=== PATIENT | male | born 1955 | race Caucasian/White ===

== ENCOUNTER 2020-10-21 20:58 | Inpatient (IN) | payer MEDICAID, SELFPAY ==
[~2020-10-21] VITALS: Ht 170.2 cm; Wt 65.8 kg
[2020-10-21] MEDS: DEXT 5% / NACL 0.45% 1,000 ML IV SCH (06:30)
[2020-10-21 20:58] VITALS: BP 106/78
--- NOTE | 2020-10-21 21:25 | NUR ---
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 UNABLE TO GET INFORMATION ON WHEN TUMOR WAS REMOVED FROM FACILITY.
--- NOTE | 2020-10-21 21:30 | NUR ---
RT AT [facility]. LAB AND XRAY DONE.
--- NOTE | 2020-10-21 21:32 | NUR ---
PATIENT BEING TAKEN TO CT RIGHT NOW
[2020-10-21] MEDS ORDERED: PIPERACILLIN/TAZOBACTAM 3.375 GM in DEXTROSE 5% 50 ML IV ONE (22:55)
[2020-10-21 23:29] LABS: HEMATOCRIT 33.3 % (36-52); HEMOGLOBIN 10.4 g/dL (12.0-18.0); MEAN CORPUSCULAR HEMOGLOBIN 23 pg (27-31); MEAN CORPUSCULAR HGB CONC 31 g/dL (33-37); MEAN CORPUSCULAR VOLUME 74.7 fL (80-94); PLATELET COUNT (AUTO) 267 K/uL (140-450); RED BLOOD CELL COUNT(AUTO) 4.45 MIL/uL (4.20-6.10); RED CELL DISTRIBUTION WIDTH 16.8 % (11.6-13.7); WHITE BLOOD COUNT (AUTO) 19.8 K/uL (4.8-10.8)
[2020-10-21] MEDS ORDERED: PIPERACILLIN/TAZOBACTAM 3.375 GM VIAL IV ONE (23:46)
[2020-10-21 23:48] LABS: PROTHROMBIN TIME 11.9 secs (10.8-13.4)
[2020-10-21 23:55] LABS: EOSINOPHILS % (MANUAL) 1 % (0-4); LYMPHOCYTES % (MANUAL) 4 % (20-46); MONOCYTES % (MANUAL) 1 % (5-12)
[2020-10-22] VITALS (13 sets, daily range): BP systolic 102–124; BP diastolic 67–88
[2020-10-22 00:02] LABS: ALBUMIN 3.1 g/dL (3.4-5.0); CARBON DIOXIDE 36.8 mmol/L (21-32); CREATININE 0.5 mg/dL (0.6-1.3); TOTAL BILIRUBIN 0.6 mg/dL (0.0-1.0)
[2020-10-22 00:07] LABS: POTASSIUM 2.8 mmol/L (3.5-5.1)
--- NOTE | 2020-10-22 00:08 | NUR ---
LAB CALLED IN TO REPORT THAT PT'S POTASSIUM LEVELIS LOW AT 2.8. ERMD NOTIFIED.
[2020-10-22 00:20] LABS: APPEARANCE,URINE HAZY (CLEAR); BILIRUBIN,URINE NEGATIVE (NEGATIVE); BLOOD, URINE 2+ (NEGATIVE); COLOR,URINE YELLOW (YELLOW); LEUKOCYTE ESTERASE ,URINE NEGATIVE (NEGATIVE); NITRITE, URINE NEGATIVE (NEGATIVE); PH,URINE 7.5 (5.0-9.0); UGLUCOSE NEGATIVE (NEGATIVE)
[2020-10-22] MEDS ORDERED: HYDROcodone/APAP 5/325 MG 1 TAB TAB GT PRN (00:30)
[2020-10-22] MEDS ORDERED: ONDANSETRON 4 MG/2 ML VIAL IVP PRN (00:30)
[2020-10-22] MEDS ORDERED: LORazepam 2 MG/ML VIAL IVP PRN (00:30)
[2020-10-22] MEDS ORDERED: ACETAMINOPHEN 325 MG TAB GT PRN (00:30)
[2020-10-22 00:45] LABS: RBC,URINE 11-20 (MOD) /HPF (0-5)
[2020-10-22 00:47] LABS: COARSE GRANULAR CASTS,URINE 0-3 /LPF (None Seen)
--- NOTE | 2020-10-22 01:00 | NUR ---
STARTED K-RIDER 20MEQ/100ML X2 BAGS FOR A TOTAL OF 40MEQ PER DR GLEZ'S ORDER. K+=2.8 PER LAB REPORT.
[2020-10-22] MEDS ORDERED: KCL 20 MEQ/WATER INJ PREMIX 200 ML IV SCH (01:20)
[2020-10-22] MEDS ORDERED: APIX5TAB PO (04:02)
[2020-10-22] MEDS ORDERED: METO25TA PO (04:02)
[2020-10-22] MEDS ORDERED: SUCR1TAB35 PO (04:02)
[2020-10-22] MEDS ORDERED: AMLO10TA GT (04:02)
[2020-10-22] MEDS ORDERED: ASPI-1822 GT (04:02)
[2020-10-22] MEDS ORDERED: FAMO-90 GT (04:02)
[2020-10-22] MEDS ORDERED: ASCO500T95 PO (04:02)
[2020-10-22] MEDS ORDERED: LACO10SO3 PO (04:02)
[2020-10-22] MEDS ORDERED: DOXA2TAB1 GT (04:02)
[2020-10-22] MEDS ORDERED: LEVE100021 PO (04:02)
[2020-10-22] MEDS ORDERED: ATOR10TA51 GT (04:02)
--- NOTE | 2020-10-22 04:34 | NUR ---
RECEIVED PHONE REPORT FROM ER NURSE. WAITING PATIENT TO TRANSFER TO UNIT.
--- NOTE | 2020-10-22 05:30 | NUR ---
RECEIVED PATIENT TO ROOM 122B. DX RESP FAILURE AND PNA. PATIENT IS AWAKE, APHASIC. RESPIRATORY EVEN AND UNLABORED, TRACH TO VENT, NO SIGN OF DISTRESS NOTED. VENT SETTING: FIO2 30, VT 450, PEEP 5, RR 19, O2 SAT 96%. LUNG SOUND DIMINISHED. ABDOMEN SOFT, NON DISTENDED, BOWEL SOUND ACTIVE TO 4 QUADRANTS, G-TUBE IN PLACE, 0ML RESIDUAL. SKIN WARM, DRY, NON DIAPHORETIC. SACRAL WOUND NOTED WITH CLEAN AND DRY DRESSING, PICTURE WAS TAKEN AT ER. IV ON LEFT WRIST 20G, INTACT AND PATENT, IS INFUSING POTASSIUM CHLORIDE 20MEQ @50ML/HR. PATIENT IS INCONTINENT, DIAPER IN PLACE. PATIENT IS STABLE. NO SIGN OF DISTRESS NOTED. PLAN OF CARE DISCUSSED. MRSA COLLECTED. ORIENTED TO ROOM AND UNIT ROUTINE. PRECAUTION IN PLACE. CALL LIGHT WITHIN REACH. HOB ELEVATED. WILL CONTINUE TO MONITOR.
--- NOTE | 2020-10-22 05:41 | NUR ---
Patient will be admitted to care of DR. GLEZ. Admited to TELE UNIT. Will go to room 122B. Belongings list completed. Report to DAGOBERTO CANO.
--- NOTE | 2020-10-22 06:41 | NUR ---
CALL [facility], SPOKE WITH JEROME KWONG TO NOTIFY THAT PATIENT ADMIT TO ROOM 122B. ALL QUESTIONS ANSWER. WILL CONTINUE TO FOLLOW UP.
[2020-10-22] MEDS ORDERED: PIPERACILLIN/TAZOBACTAM 3.375 GM VIAL IV ONE (07:09)
--- NOTE | 2020-10-22 07:11 | NUR ---
PATIENT HAS BEEN SCREENED AND CATEGORIZED HIGH NUTRITION RISK. PATIENT WILL BE SEEN WITHIN 1-2 DAYS OF ADMISSION. 10/22/20-10/23/20 PENNY HILLS MS, RDN
--- NOTE | 2020-10-22 07:20 | NUR ---
ENDORSED PATIENT TO AM NURSE FOR CONTINUITY OF CARE. PATIENT IS STABLE. ALL PRECAUTION IN PLACE.
[2020-10-22] MEDS: PIPERACILLIN/TAZOBACTAM 3.375 GM in DEXTROSE 5% 50 ML IV SCH ×3 (07:21→20:58)
--- NOTE | 2020-10-22 07:30 | NUR ---
RECEIVED REPORT FROM CORPORATE DIRECTOR TALENT ASSESSMENT NURSE. PT IN BED HOB ELEVATED, AOX2, APHASIC, ABLE TO MAKE SOME NEEDS KNOWN THROUGH GESTURES. TRACH TO VENT AC/VC FIO2 30%. NO C/O PAIN AT THIS TIME, NO SOB, SR/ST ON MONITOR. SKIN IS NOT INTACT WITH SACRAL WOUND, WITH LFA 20G RUNNING D5 1/2NS 100CC/HR. NPO. NONAMBULATORY. BOWEL AND BLADDER INCONTINENT. SAFETY AND FALLS PRECAUTIONS IN PLACE. CALL LIGHT WITHIN REACH. WILL CONTINUE TO MONITOR
--- NOTE | 2020-10-22 09:15 | NUR ---
ROUNDS DONE, NO RESPIRATORY DISTRESS, NO C/O PAIN
[2020-10-22] MEDS: DEXT 5% / NACL 0.45% 1,000 ML IV SCH ×2 (09:28→19:20)
[2020-10-22 10:00] LABS: MONOCYTES # (AUTO) 0.7 K/uL (0.8-1.0)
[2020-10-22 10:13] LABS: ANION GAP 6.5 (8-16); CARBON DIOXIDE 33.5 mmol/L (21-32); CREATININE 0.5 mg/dL (0.6-1.3)
[2020-10-22 10:14] LABS: BASOPHILS % (AUTO) 0.2 % (0.0-2.0); EOSINOPHILS # (AUTO) 0.1 K/uL (0-0.4); EOSINOPHILS % (AUTO) 0.4 % (0.0-4.0); HEMOGLOBIN 9.7 g/dL (12.0-18.0); LYMPHOCYTES # (AUTO) 1.2 K/uL (2.0-11.5); LYMPHOCYTES % (AUTO) 7.8 % (20.5-51.1); MEAN CORPUSCULAR HEMOGLOBIN 23 pg (27-31); MEAN CORPUSCULAR HGB CONC 31 g/dL (33-37); MEAN CORPUSCULAR VOLUME 74.6 fL (80-94); MONOCYTES % (AUTO) 4.5 % (1.7-9.3); NEUTROPHILS # (AUTO) 13.5 K/uL (1.8-7.7); NEUTROPHILS % (AUTO) 87.1 % (42.2-75.2); PLATELET COUNT (AUTO) 253 K/uL (140-450); RED BLOOD CELL COUNT(AUTO) 4.16 MIL/uL (4.20-6.10); RED CELL DISTRIBUTION WIDTH 16.7 % (11.6-13.7); WHITE BLOOD COUNT (AUTO) 15.5 K/uL (4.8-10.8)
--- NOTE | 2020-10-22 10:36 | NUR ---
(10/22/20) RD INITIAL ASSESSMENT COMPLETED PLEASE REFER TO NUTRITION ASSESSMENT UNDER CARE ACTIVITY FOR ESTIMATED NUTRITIONAL NEEDS. RD RECOMMENDATIONS: 1. IF/WHEN INITIATING TF APPROPRIATE, RECOMMEND GLUCERNA 1.2 AT 65 ML/HR X 24 HOURS WITH 100 ML FREE WATER FLUSH Q4H (600 ML). THIS PROVIDES 1560 ML TOTAL VOLUME, 1872 KCAL, 94 GM PROTEIN, 1256 ML TOTAL FREE WATER. THIS WILL MEET 80% EST KCAL NEEDS AND >100% EST PROTEIN NEEDS; ADEQUATE TO MEET EST NEEDS. 2. CONSULT RDN PRN. 3. RD WILL F/U 2-3 DAYS; HIGH RISK. PENNY HILLS, MS, RDN
--- NOTE | 2020-10-22 11:11 | NUR ---
PT ASLEEP AT THIS TIME, NO APPARENT DISTRESS
--- NOTE | 2020-10-22 15:00 | NUR ---
ACCOMPANIED PT TO RADIOLOGY FOR CT NECK WITH CONTRAST. RT AND LAUNDRY WASHER PRESENT DURING TRANSFER
--- NOTE | 2020-10-22 15:30 | NUR ---
BACK TO UNIT FROM RADIOLOGY
--- NOTE | 2020-10-22 17:30 | NUR ---
RN AND PMP CERTIFIED PROJECT MANAGER AT BEDSIDE, PERICARE, WOUND CARE AND ORAL CARE DONE
--- NOTE | 2020-10-22 18:00 | NUR ---
STARTED TUBE FEEDING ORDERED
--- NOTE | 2020-10-22 19:40 | NUR ---
RECIEVED BEDSIDE ENDORSEMENT FROM DAY SHIFT RN, A&OX1, APHASIC, FOLLOWS COMMANDS AND NODS HEAD YES AND NO TO SIMPLE COMMANDS, SR ON MONITOR, TRACH TO VENT ACVC FIO2 30% TV 450 RATE 18 PEEP 5, VSS, LUNGS DIMINISHED, GTUVE TO FEEDING INFUSING GLUCERNA @ 10 MLS/HR W/ FWF 100MLS Q4H, PATENT AND FLUSHED W/ 10ML RESIDUAL, ABD SOFT AND NON TENDER TO TOUCH, SKIN NON INTACT/SEE WOUND ASSESSMENT, LFA 20 G PIV INFUSING D5 HALF NS @ 100MLS/HR, NO SIGNS OF ACUTE DISTRESS, SAFETY MEASURS IN PLACE, WILL CONTINUE WITH CURRENT POC
[2020-10-22] MEDS: ALBUTEROL SULFATE/IPRATROPIU 3 ML SOL IH SCH (20:34)
--- NOTE | 2020-10-22 20:36 | NUR ---
PT RECEIVED ON AC/VC 450 +5 f18 W/ ALARMS ON AND AUDIBLE. VENT IS PLUGGED IN TO RED OUTLET W/ AMBU @ BEDSIDE. PT ALSO HAS SECURED PATENT SHILEY 8 DCT TRACH WILL CONTINUE TO MONITOR.
[2020-10-22] MEDS ORDERED: CRUSHER, PILL MC ONE (20:43)
[2020-10-22] MEDS: levETIRAcetam 500 MG TAB PO SCH (20:58)
[2020-10-22] MEDS: SUCRALFATE 1 GM TAB PO SCH (20:58)
[2020-10-22] MEDS: FAMOTIDINE 20 MG TAB GT SCH (20:58)
[2020-10-22] MEDS: VIMPAT 10 MG/ML PO SCH (20:59)
[2020-10-22] MEDS: ASCORBIC ACID 500 MG TAB PO SCH (20:59)
[2020-10-22] MEDS: METOPROLOL 25 MG TAB PO SCH (20:59)
[2020-10-22] MEDS ORDERED: APIXABAN 2.5 MG TAB PO SCH (21:00)
--- NOTE | 2020-10-22 21:10 | NUR ---
ADMINISTERED 2100H MEDICATIONS PER MD ORDERS
[2020-10-23] VITALS (13 sets, daily range): BP systolic 111–235; BP diastolic 69–82
[2020-10-23] MEDS: ALBUTEROL SULFATE/IPRATROPIU 3 ML SOL IH SCH ×4 (00:08→19:59)
--- NOTE | 2020-10-23 00:19 | NUR ---
REPOSITIONED PT AND SHOWING NO SIGNS OF ACUTE DISTRESS
[2020-10-23] MEDS: PIPERACILLIN/TAZOBACTAM 3.375 GM in DEXTROSE 5% 50 ML IV SCH ×3 (04:52→20:46)
--- NOTE | 2020-10-23 04:52 | NUR ---
ADMINISTERED 0500H MEDICATIONS PER MD ORDERS
[2020-10-23] MEDS: DEXT 5% / NACL 0.45% 1,000 ML IV SCH ×2 (04:56→15:34)
--- NOTE | 2020-10-23 05:49 | NUR ---
PT REMAINS ON VENT W/ NO CHANGES TO SETTINGS OF AC/VC 450 +5 f18 30%. VENT REMAINS PLUGGED INTO RED OUTLET W/ ALARMS ON / AUDIBLE AND AMBU REMAINS AT BEDSIDE. TRACH CARE HAS BEEN PERFORMED W/ NO ADVERSE REACTIONS. TRACH REMAINS PATENT AND SECURED. UPON TRACH CARE A PRESSURE SORE/ULCER HAS BEEN NOTICED ON RIGHT LOWER PORTION OF TRACH FLANGE/PLATE. RN IS AWARE OF WOUND IT HAS BEEN CLEANED/ADDRESSED. WILL ENDORSE TO DAYSHIFT FOR CONTINUITY OF CARE.
[2020-10-23 06:39] LABS: BASOPHILS % (AUTO) 0.5 % (0.0-2.0); EOSINOPHILS # (AUTO) 0.1 K/uL (0-0.4); EOSINOPHILS % (AUTO) 1.5 % (0.0-4.0); HEMATOCRIT 30.4 % (36-52); HEMOGLOBIN 9.6 g/dL (12.0-18.0); LYMPHOCYTES # (AUTO) 0.9 K/uL (2.0-11.5); LYMPHOCYTES % (AUTO) 10.3 % (20.5-51.1); MEAN CORPUSCULAR HEMOGLOBIN 24 pg (27-31); MEAN CORPUSCULAR HGB CONC 32 g/dL (33-37); MEAN CORPUSCULAR VOLUME 74.8 fL (80-94); MONOCYTES # (AUTO) 0.7 K/uL (0.8-1.0); NEUTROPHILS # (AUTO) 7.1 K/uL (1.8-7.7); NEUTROPHILS % (AUTO) 79.7 % (42.2-75.2); PLATELET COUNT (AUTO) 251 K/uL (140-450); RED BLOOD CELL COUNT(AUTO) 4.06 MIL/uL (4.20-6.10); RED CELL DISTRIBUTION WIDTH 16.7 % (11.6-13.7); WHITE BLOOD COUNT (AUTO) 8.9 K/uL (4.8-10.8)
[2020-10-23 06:56] LABS: ANION GAP 9.5 (8-16); CARBON DIOXIDE 30.2 mmol/L (21-32); CREATININE 0.5 mg/dL (0.6-1.3)
[2020-10-23 07:02] LABS: MAGNESIUM 2.1 mg/dL (1.8-2.4); PHOSPHORUS 3.3 mg/dL (2.5-4.9)
--- NOTE | 2020-10-23 07:24 | NUR ---
RECEIVED CRITICAL LAB POTASSIUM 2.7 DR GOLDBERG AWARE AND ORDERS RECEIVED.
[2020-10-23 07:26] LABS: POTASSIUM 2.7 mmol/L (3.5-5.1)
--- NOTE | 2020-10-23 07:35 | NUR ---
RECEIVED REPORT FROM NIGHT NURSE PT IS TRACH TO VENT MENTAL STATUS X1 SETTINGS AC/VC FIO2 30 TV 450 RATE 18 PEEP 5 TUBE FEEDING GLUCERNA 1.2 AT 30 ML WATER FLUSH 100 Q4H NO BOWEL MOVEMENT, INCONTINENT, SKIN NON INTACT, IV INTACT ON LEFT FA WITH D50.45 % SODIUM CHLORIDE AT 100 MLS/HR, SAFETY MEASURES IN PLACE AND CALL LIGHT WITHIN REACH. WILL CONTINUE TO MONITOR.
[2020-10-23] MEDS ORDERED: MAG SULF 2000 MG/WATER PREMIX 50 ML IV PRN (08:50)
[2020-10-23] MEDS ORDERED: POTASSIUM CHLORIDE 40 MEQ, LIDOCAINE MPF 1% 25 MG in NACL 0.9% 250 ML IV PRN (08:50)
[2020-10-23] MEDS: levETIRAcetam 500 MG TAB PO SCH ×2 (09:30→20:46)
[2020-10-23] MEDS: ASPIRIN 81 MG TAB.CHEW GT SCH (09:31)
[2020-10-23] MEDS: METOPROLOL 25 MG TAB PO SCH ×2 (09:31→20:45)
[2020-10-23] MEDS: FAMOTIDINE 20 MG TAB GT SCH ×2 (09:31→20:45)
[2020-10-23] MEDS: ATORVASTATIN 20 MG TAB PO SCH (09:31)
[2020-10-23] MEDS: ASCORBIC ACID 500 MG TAB PO SCH ×2 (09:32→20:45)
[2020-10-23] MEDS: amLODIPine 5 MG TAB GT SCH (09:32)
[2020-10-23] MEDS: DOXAZOSIN 2 MG TAB GT SCH (09:32)
[2020-10-23] MEDS: SUCRALFATE 1 GM TAB PO SCH ×2 (09:32→20:45)
[2020-10-23] MEDS: VIMPAT 10 MG/ML PO SCH ×2 (09:42→20:46)
--- NOTE | 2020-10-23 09:51 | NUR ---
MEDICATION DUE GIVEN NO RESIDUAL VOLUME PT TOLERATED WELL INCREASED FEEDING RATE TO 40 ML/HR AND CHECK VITAL SIGNS PRIOR TO MEDICATION BP 113/78 TX 91. NO DISTRESS NOTED.
--- NOTE | 2020-10-23 10:50 | NUR ---
PATIENT POTASSIUM LEVEL 2.7 SODIUM CHLORIDE 0.9% WITH POTASSUIM CHLORIDE 40 MEQ IV GIVEN INFUSING WELL. DR GOLDBERG AWARE.
--- NOTE | 2020-10-23 12:27 | NUR ---
MEDICATION DUE GIVEN CHECK VITAL SIGNS BP 111/78 DE 61. PT IS SLEEPING AND NO DISTRESS NOTED.
--- NOTE | 2020-10-23 14:09 | NUR ---
CLEANS AND CHANGE PT SACRAL WOUND WITH SKIN INTEGRITY CLEANSER AND APPLIED OPTIFOAM AND REPOSITION PATIENT. SUCTIONED TRACH AND PT TOLERATED WELL.
[2020-10-23] MEDS ORDERED: VANCOMYCIN PER PHARMACY MC PRN (14:15)
[2020-10-23] MEDS: VANCOMYCIN 1,000 MG in DEXTROSE 5% 250 ML IV SCH (15:39)
--- NOTE | 2020-10-23 15:44 | NUR ---
VANCOMYCIN 250 ML 1000 MG AT 165 MLS/HR GIVEN INFUSING WELL.RT CLEANED AND CHANGED TRACH TUBING PT TOLERATED WELL.
[2020-10-23] MEDS ORDERED: POTASSIUM CHLORIDE 10 MEQ TABER PO SCH (16:30)
--- NOTE | 2020-10-23 16:43 | NUR ---
K DUR 40 MEQ GIVEN AND DEXTROSE 55 SODIUM CHLORIDE 0.455 DISCONTINUED PER DOCTORS ORDER.
--- NOTE | 2020-10-23 16:44 | NUR ---
TUBE FEEDING INCREASE TO 65 MLS/HR PER ORDER . TUBE FEEDING GOAL IS 65 MLS/HR.
--- NOTE | 2020-10-23 19:24 | NUR ---
ENDORSED TO NIGHT NURSE FOR CONTINUITY OF CARE. PT IS STABLE
--- NOTE | 2020-10-23 19:30 | NUR ---
RECIEVED BEDSIDE ENDORSEMENT FROM DAY SHIFT RN, A&OX1, APHASIC, FOLLOWS COMMANDS AND NODS HEAD YES AND NO TO SIMPLE COMMANDS, SR ON MONITOR, TRACH TO VENT ACVC FIO2 30% TV 450 RATE 18 PEEP 5, VSS, LUNGS DIMINISHED, GTUBE TO FEEDING INFUSING GLUCERNA @ 65 MLS/HR W/ FWF 100MLS Q4H, PATENT AND FLUSHED W/ 10ML RESIDUAL, ABD SOFT AND NON TENDER TO TOUCH, SKIN NON INTACT/SEE WOUND ASSESSMENT, LFA 20 G PIV SALINE LOCKED, NO SIGNS OF ACUTE DISTRESS, SAFETY MEASURS IN PLACE, WILL CONTINUE WITH CURRENT POC
--- NOTE | 2020-10-23 21:41 | NUR ---
ADMINISTERED 2100H MEDICAITONS PER MD ORDERS, STARTED NS TKO TO RUN IV ANTIBIOTICS
--- NOTE | 2020-10-23 23:39 | NUR ---
REPOSITIONED PT, ORAL CARE AND SUCTIONING PROVIDED, SHOWING NO SIGNS OF ACUTE DISTRES
[2020-10-24] VITALS (10 sets, daily range): BP systolic 107–147; BP diastolic 70–98
--- NOTE | 2020-10-24 02:10 | NUR ---
ORAL CARE AND SUCTIONING PROVIDED, SHOWING NO SIGNS OF ACUTE DISTRESS
[2020-10-24] MEDS: VANCOMYCIN 1,000 MG in DEXTROSE 5% 250 ML IV SCH ×2 (03:00→16:15)
--- NOTE | 2020-10-24 03:01 | NUR ---
ADMINISTERED 0400H MEDICATION PER MD ORDERS
[2020-10-24] MEDS: PIPERACILLIN/TAZOBACTAM 3.375 GM in DEXTROSE 5% 50 ML IV SCH ×3 (05:06→21:16)
--- NOTE | 2020-10-24 05:06 | NUR ---
ADMINISTERED 0500H MEDICATION PER MD ORDERS
[2020-10-24 05:19] LABS: BASOPHILS % (AUTO) 0.5 % (0.0-2.0); EOSINOPHILS # (AUTO) 0.1 K/uL (0-0.4); EOSINOPHILS % (AUTO) 1.6 % (0.0-4.0); HEMATOCRIT 30.9 % (36-52); HEMOGLOBIN 9.7 g/dL (12.0-18.0); LYMPHOCYTES # (AUTO) 0.9 K/uL (2.0-11.5); LYMPHOCYTES % (AUTO) 9.7 % (20.5-51.1); MEAN CORPUSCULAR HEMOGLOBIN 24 pg (27-31); MEAN CORPUSCULAR HGB CONC 31 g/dL (33-37); MEAN CORPUSCULAR VOLUME 75.2 fL (80-94); MONOCYTES # (AUTO) 0.6 K/uL (0.8-1.0); MONOCYTES % (AUTO) 7.1 % (1.7-9.3); NEUTROPHILS # (AUTO) 7.4 K/uL (1.8-7.7); NEUTROPHILS % (AUTO) 81.1 % (42.2-75.2); PLATELET COUNT (AUTO) 240 K/uL (140-450); RED BLOOD CELL COUNT(AUTO) 4.11 MIL/uL (4.20-6.10); RED CELL DISTRIBUTION WIDTH 16.4 % (11.6-13.7); WHITE BLOOD COUNT (AUTO) 9.1 K/uL (4.8-10.8)
[2020-10-24 05:40] LABS: PHOSPHORUS 3.3 mg/dL (2.5-4.9)
[2020-10-24] MEDS: ALBUTEROL SULFATE/IPRATROPIU 3 ML SOL IH SCH ×3 (07:16→20:01)
--- NOTE | 2020-10-24 07:30 | NUR ---
RECEIVED REPORT FROM BREAKING MACHINE OPERATOR RN FOR CONTINUITY OF CARE. PATIENT ASLEEP IN BED IN SUPINE POSITION. TRACH TO VENT FIO2 26%, O2 SAT 95%. IV TO LEFT WRIST WITH NEEDLE TOWARD FINGER, IN THE WRONG DIRECTION. WILL REMOVE THE IV. ABDOMEN SOFT NON TENDER, G TUBE IN PLACE. RUNNING GLUCERNA 1.2 @ 65ML/HR, FWF 100ML Q 4H. SACRAL WOUND NOTED. INCONTINENT WITH BLADDER AND BOWEL. SAFETY MEASURES IN PLACE, WILL CONTINUE TO MONITOR.
--- NOTE | 2020-10-24 07:36 | NUR ---
ENDORSED TO DAY SHIFT RN FOR CONTINUITY OF CARE
[2020-10-24] MEDS: levETIRAcetam 500 MG TAB PO SCH ×2 (09:40→21:17)
[2020-10-24] MEDS: ATORVASTATIN 20 MG TAB PO SCH (09:42)
[2020-10-24] MEDS: amLODIPine 5 MG TAB GT SCH (09:42)
[2020-10-24] MEDS: ASCORBIC ACID 500 MG TAB PO SCH ×2 (09:42→21:16)
[2020-10-24] MEDS: FAMOTIDINE 20 MG TAB GT SCH ×2 (09:42→21:16)
[2020-10-24] MEDS: SUCRALFATE 1 GM TAB PO SCH ×2 (09:43→21:16)
[2020-10-24] MEDS: DOXAZOSIN 2 MG TAB GT SCH (09:43)
[2020-10-24] MEDS: METOPROLOL 25 MG TAB PO SCH ×2 (09:43→21:17)
[2020-10-24] MEDS: ASPIRIN 81 MG TAB.CHEW GT SCH (09:43)
[2020-10-24] MEDS: VIMPAT 10 MG/ML PO SCH ×2 (09:57→21:20)
[2020-10-24 11:16] LABS: ANION GAP 17.5 (8-16); CARBON DIOXIDE 25.7 mmol/L (21-32); CREATININE 0.6 mg/dL (0.6-1.3); POTASSIUM 3.2 mmol/L (3.5-5.1)
--- NOTE | 2020-10-24 15:13 | NUR ---
HANG NEW BAG OF FEEDING FORMULA GLUCERNA. PATIENT TOLERATED FEEDING WELL. NO ACUTE DISTRESS NOTED. WILL CONTINUE TO MONITOR.
[2020-10-24] MEDS: POTASSIUM CHLORIDE 20% 40 MEQ/15 ML UDC GT SCH ×2 (16:15→20:00)
[2020-10-24] MEDS: POLYVINYL ALCOHOL 1.4% OP 15 ML SOL BOTH EYES SCH (16:58)
--- NOTE | 2020-10-24 19:19 | NUR ---
ENDORSED PATIENT TO LEGAL ARBITRATOR RN FOR CONTINUITY OF CARE, PATIENT IN STABLE CONDITION.
--- NOTE | 2020-10-24 19:30 | NUR ---
ASSUMED CARE OF PT.INITIAL ASSESSMENT COMPLETED.PT AWAKE; ABLE TO FOLLOW SIMPLE COMMANDS LIKE OPENING/CLOSING OF MOUTH DURING ORAL CARE.TRACH TO VENT A/C VC FIO2 26% TV450 RATE 18 PEEP5.NO BLEEDING FROM TRACH SITE NOTED.W/PERIPHERAL IV TO LT HAND G20 INTACT.NS AT TKO INFUSING.W/G TUBE INTACT.NO RESIDUALS NOTED.G TUBE FEEDING ORDERED.PT INCONTINENT OF URINE.PRESSURE ULCER TO SACRUM ALSO NOTED.GENERALIZED WEAKNESS NOTED.DENIES PAIN WHEN ASKED.
--- NOTE | 2020-10-24 19:53 | NUR ---
PT RECEIVED ON AC/VC 450 +5 f18 26% W/ ALARMS ON AND AUDIBLE. VENT IS PLUGGED IN TO RED OUTLET W/ AMBU @ BEDSIDE. PT ALSO HAS SECURED SHILEY 8 TRACH. WILL CONTINUE TO MONITOR
--- NOTE | 2020-10-24 20:08 | NUR ---
PHONE CALL FROM LAB RE; MRSA NARES POSITIVE; INFORMED BABAR BROWN, THAT AND AUTOCAD DRAFTSMAN ALREADY AWARE THE PTS RESULT.ALREADY ORDERED BACTROBAN AND CHLORHEXIDINE CLOTH AT 1939. ADORE CHARGE NURSE AWARE
--- NOTE | 2020-10-24 20:30 | NUR ---
ORAL CARE USING VAP KIT RENDERED.PT ON PEPCID FOR GI PROPHYLAXIS.NO DVT PROPHYLAXIS AT THIS TIME.MD WILL EVALUATE PT IN AM PER REPORT.REPOSITIONED FOR COMFORT.
--- NOTE | 2020-10-24 22:41 | NUR ---
PT APPEARS ASLEEP; NO S/SX OF RESP DISTRESS NOTED.STILL NO BLEEDING FROM TRACH SITE NOTED.SECRETIONS SUCTIONED.MODERATE AMT OF CREAMY SECRETIONS SUCTIONED.WILL CONTINUE TO CLOSELY MONITOR PT.
--- NOTE | 2020-10-24 23:23 | NUR ---
ORAL CARE DONE USING VAP KIT.MODERATE AMT OF CREAMY SECRETIONS SUCTIONED. PT INCONTINENT OF URINE.CLEANED AND CHANGED.REPOSITIONED.DENIES PAIN
[2020-10-25] VITALS (7 sets, daily range): BP systolic 93–123; BP diastolic 64–87
[2020-10-25] MEDS: ALBUTEROL SULFATE/IPRATROPIU 3 ML SOL IH SCH ×4 (02:08→19:00)
--- NOTE | 2020-10-25 03:03 | NUR ---
LAB AT BEDSIDE TO DRAW VANCOMYCIN TROUGH.PT ASLEEP,EASILY AROUSABLE.DENIES PAIN
[2020-10-25 03:22] LABS: ANION GAP 14.5 (8-16); BASOPHILS # (AUTO) 0.1 K/uL (0.00-0.22); BASOPHILS % (AUTO) 0.6 % (0.0-2.0); CARBON DIOXIDE 27.5 mmol/L (21-32); CREATININE 0.6 mg/dL (0.6-1.3); EOSINOPHILS # (AUTO) 0.2 K/uL (0-0.4); EOSINOPHILS % (AUTO) 1.9 % (0.0-4.0); HEMATOCRIT 30.2 % (36-52); HEMOGLOBIN 9.5 g/dL (12.0-18.0); LYMPHOCYTES % (AUTO) 11.2 % (20.5-51.1); MEAN CORPUSCULAR HEMOGLOBIN 23 pg (27-31); MEAN CORPUSCULAR HGB CONC 32 g/dL (33-37); MEAN CORPUSCULAR VOLUME 74.1 fL (80-94); MONOCYTES # (AUTO) 0.5 K/uL (0.8-1.0); MONOCYTES % (AUTO) 6.1 % (1.7-9.3); NEUTROPHILS # (AUTO) 6.8 K/uL (1.8-7.7); NEUTROPHILS % (AUTO) 80.2 % (42.2-75.2); PLATELET COUNT (AUTO) 254 K/uL (140-450); RED BLOOD CELL COUNT(AUTO) 4.08 MIL/uL (4.20-6.10); RED CELL DISTRIBUTION WIDTH 16.6 % (11.6-13.7); WHITE BLOOD COUNT (AUTO) 8.5 K/uL (4.8-10.8)
[2020-10-25 04:12] LABS: PHOSPHORUS 3.5 mg/dL (2.5-4.9)
[2020-10-25] MEDS: VANCOMYCIN 1,000 MG in DEXTROSE 5% 250 ML IV SCH ×2 (04:21→16:20)
--- NOTE | 2020-10-25 04:45 | NUR ---
BM NOTED.LARGE AMT OF SOFT BROWNISH STOOL.PT CLEANED.REPOSITIONED.DENIES PAIN
[2020-10-25] MEDS: PIPERACILLIN/TAZOBACTAM 3.375 GM in DEXTROSE 5% 50 ML IV SCH ×3 (05:03→20:53)
--- NOTE | 2020-10-25 05:03 | NUR ---
PT REMAINS ON VENT W/ NO CHANGES TO SETTINGS OF AC/VC 450 +5 f18 26%. VENT REMAINS PLUGGED INTO RED OUTLET W/ ALARMS ON / AUDIBLE AND AMBU REMAINS AT BEDSIDE. JOSE EDUARDO Shields TRACH IS SECURED AND PATENT. TRACH CARE HAS BEEN PERFORMED W/ NO ADVERSE REACTIONS. WILL CONTINUE TO MONITOR AND ENDORSE TO DAY SHIFT
--- NOTE | 2020-10-25 06:23 | NUR ---
PT ASLEEP; EASILY AROUSABLE.CONDITION REMAINS UNCHANGED AT THIS TIME.PINK TINGED SECRETIONS SUCTIONED,SMALL AMT.DENIES PAIN
--- NOTE | 2020-10-25 07:05 | NUR ---
RECEIVED REPORT FROM LUMBER LOADER RN FOR CONTINUITY OF CARE. PATIENT IS NONVERBAL. SR ON MONITOR. TRACH TO VENT, AC/VC FIO2 26%, TV 450, RATE 18, PEEP 5. NPO EXCEPT MEDS. IV VLEAN, DRY, AND INTACT, ON LFA 20 G INFUSING NS AT 5 ML/HR TKO. G-TUBE TO FEEDING, RUNNING GLUCERA 1.2 AT 60 ML/HR WITH FREE WATER FLUSH OF 100 ML EVERY 4 HOURS. SACRAL WOUND, OPTIFOAM PLACED. CARDIAC MONTIOR, PULSE OXIMETER, AND SAFETY MEASURES IN PLACE. BED LOCKED, BED IN LOW POSITION, HEAD OF BED AT 30 DEGREES. WILL CONTINUE TO MONITOR.
[2020-10-25] MEDS: VIMPAT 10 MG/ML PO SCH ×3 (10:12→20:59)
[2020-10-25] MEDS: METOPROLOL 25 MG TAB PO SCH ×2 (10:12→20:54)
[2020-10-25] MEDS: CHLORHEXADINE GLUC 2% CLOTH TP SCH (10:12)
[2020-10-25] MEDS: amLODIPine 5 MG TAB GT SCH (10:13)
[2020-10-25] MEDS: levETIRAcetam 500 MG TAB PO SCH ×2 (10:13→20:53)
[2020-10-25] MEDS: MUPIROCIN CA NASAL 2% 1GM TUBE NS SCH (10:13)
[2020-10-25] MEDS: SUCRALFATE 1 GM TAB PO SCH ×2 (10:14→20:53)
[2020-10-25] MEDS: DOXAZOSIN 2 MG TAB GT SCH (10:14)
[2020-10-25] MEDS: FAMOTIDINE 20 MG TAB GT SCH ×2 (10:14→20:52)
[2020-10-25] MEDS: ASCORBIC ACID 500 MG TAB PO SCH ×2 (10:15→20:54)
[2020-10-25] MEDS: ATORVASTATIN 20 MG TAB PO SCH (10:15)
--- NOTE | 2020-10-25 10:15 | NUR ---
CHECKED RESIDUAL, 0 ML. ADMINISTERED SCHEDULED AM MEDICATION. FLUSHED AFTER. CHANGED FEEDING. ORAL CARE, HYGIENE CARE, AND G BATH PROVIDED. PATIENT REPOSITIONED. NO SIGNS OF PAIN OR DISTRESS. WILL CONTINUE TO MONITOR.
[2020-10-25] MEDS: ASPIRIN 81 MG TAB.CHEW GT SCH (10:16)
[2020-10-25] MEDS: POLYVINYL ALCOHOL 1.4% OP 15 ML SOL BOTH EYES SCH ×3 (10:17→16:20)
--- NOTE | 2020-10-25 12:00 | NUR ---
REPORT RECEIVED FROM Nancy CANO
--- NOTE | 2020-10-25 12:25 | NUR ---
ADMINISTERED ZOSYN IVPB AND ARTIFICIAL TEARS. PATIENT SHOWS NO SIGN OF PAIN. ENDORSED TO LLOYD RN, FOR CONTINUITY OF CARE. ALL QUESTIONS ANSWERED.
--- NOTE | 2020-10-25 13:54 | NUR ---
10/25/20 FOLLOW UP COMPLETED PLEASE REFER TO NUTRITION ASSESSMENT UNDER CARE ACTIVITY FOR ESTIMATED NUTRITIONAL NEEDS. 1. CONT. GLUCERNA 1.2 AT 65 ML/HR X 24 HOURS WITH 100 ML FREE WATER FLUSH Q4H (600 ML). -THIS PROVIDES 1560 ML TOTAL VOLUME, 1872 KCAL, 94 GM PROTEIN, 1256 ML TOTAL FREE WATER. THIS WILL MEET 80% EST KCAL NEEDS AND >100% EST PROTEIN NEEDS; ADEQUATE TO MEET EST NEEDS. 2. RECOMMEND DU BID TO PROMOTE WOUND HEALING 3. RD WILL F/U 2-3 DAYS; HIGH RISK. ALYCE PLUMMER RD
--- NOTE | 2020-10-25 14:02 | NUR ---
WOUND CARE DONE
--- NOTE | 2020-10-25 15:30 | NUR ---
PT TRANSFERED TO WOUND MATTRESS BED
--- NOTE | 2020-10-25 16:10 | NUR ---
DR BREWSTER AT BEDSIDE
--- NOTE | 2020-10-25 16:23 | NUR ---
SCHEDULED VANCO STARTED IV PB, ORAL CARE DONE, PT FOLLOWS COMMANDS, PT RESTING QUIETLY IN NO ACUTE DISTRESS
--- NOTE | 2020-10-25 18:36 | NUR ---
DR Eddie GLEZ AT BEDSIDE
--- NOTE | 2020-10-25 18:50 | NUR ---
DR KAUR AT BEDSIDE
--- NOTE | 2020-10-25 19:20 | NUR ---
PT RECEIVED W/ JOSE EDUARDO 8 TRACH ON AC/VC 450 +5 f18 24% W/ ALARMS ON AND AUDIBLE. VENT IS PLUGGED IN TO RED OUTLET W/ AMBU @ BEDSIDE. A/W IS PATENT AND SECURED WILL CONTINUE TO MONITOR
--- NOTE | 2020-10-25 19:20 | NUR ---
REPORT GIVEN TO PSYCHOLOGICAL OPERATIONS OFFICER NURSE
--- NOTE | 2020-10-25 19:21 | NUR ---
RECEIVED REPORT FROM DAY SHIFT NURSE. PT IN BED AWAKE. PT NON VERBAL WITH SPONTANEOUS EYE OPENING AND IS ABLE TO FOLLOW COMMANDS. PT ON TRACH TO VENT A/CVC FIO2 24, TV 450, PEEP 5, FLOW 40. PT NOT IN DISTRESS. PT SHOWS SINUS RHYTHM ON MONITOR. PT WITH GTUBE IN PLACE, ON CONTINUOUS FEEDING. SKIN IS WARM AND DRY. PT WITH SACRAL PRESSURE ULCER, DRESSING IN PLACE. IV ACCESS G20 ON LEFT FOREARM PATENT AND INTACT, TKO. PT DENIES ANY PAIN OR DISCOMFORT AT THIS TIME. PT KEPT COMFORTABLE. SAFETY MEASURES IN PLACE, CALL LIGHT WITHIN REACH, WILL CONTINUE TO MONITOR.
--- NOTE | 2020-10-25 20:55 | NUR ---
VS STABLE. NO RESIDUAL NOTED ON GTUBE. SCHEDULED MEDS GIVEN ORDERED. ANTIHYPERTENSIVE HELD, BP 109/64. PT NOT IN DISTRESS, FLACC 0. WILL CONTINUE TO MONITOR.
[2020-10-25] MEDS: APIXABAN 2.5 MG TAB PO SCH (20:58)
--- NOTE | 2020-10-25 22:14 | NUR ---
PERINEAL CARE DONE WITH STNA. PT HAD BOWEL MOVEMENT. PT TOLERATED WELL. PT NOT IN DISTRESS.
[2020-10-26] VITALS: BP 117/78
--- NOTE | 2020-10-26 00:19 | NUR ---
VITAL SIGNS STABLE. TRACH CONNECTED TO VENT, O2 SAT 98%. NO S/SX OF DISTRESS NOTED. PT KEPT COMFORTABLE. FLACC 0. WILL CONTINUE TO MONITOR.
[2020-10-26] MEDS: ALBUTEROL SULFATE/IPRATROPIU 3 ML SOL IH SCH ×3 (01:02→13:20)
--- NOTE | 2020-10-26 02:11 | NUR ---
PT ASSISTED IN REPOSITIONING. PT SUCTIONED WELL. SCANT SECRETION OBTAINED. PT NOT IN PAIN OR DISTRESS. WILL CONTINUE TO MONITOR.
[2020-10-26] MEDS: VANCOMYCIN 1,000 MG in DEXTROSE 5% 250 ML IV SCH ×2 (03:38→16:31)
[2020-10-26 04:00] VITALS: BP 124/85
--- NOTE | 2020-10-26 04:19 | NUR ---
VS STABLE. PERINEAL CARE, WOUND CARE, GTUBE CARE DONE. PT TOLERATED WELL. PT TURNED AND REPOSITIONED WELL. WILL CONTINUE TO MONITOR.
--- NOTE | 2020-10-26 05:30 | NUR ---
NEW FEEDING BAG HUNG FOR CONTINUOUS FEEDING.
[2020-10-26] MEDS: PIPERACILLIN/TAZOBACTAM 3.375 GM in DEXTROSE 5% 50 ML IV SCH ×2 (05:45→13:00)
[2020-10-26 05:48] LABS: ALBUMIN 2.6 g/dL (3.4-5.0); ANION GAP 11.6 (8-16); CARBON DIOXIDE 28.7 mmol/L (21-32); CREATININE 0.6 mg/dL (0.6-1.3); POTASSIUM 3.3 mmol/L (3.5-5.1); TOTAL BILIRUBIN 0.3 mg/dL (0.0-1.0)
[2020-10-26 05:57] LABS: MAGNESIUM 2.1 mg/dL (1.8-2.4); PHOSPHORUS 3.5 mg/dL (2.5-4.9)
[2020-10-26 06:10] LABS: BASOPHILS % (AUTO) 0.4 % (0.0-2.0); EOSINOPHILS # (AUTO) 0.1 K/uL (0-0.4); HEMATOCRIT 29.6 % (36-52); HEMOGLOBIN 9.4 g/dL (12.0-18.0); LYMPHOCYTES % (AUTO) 14.7 % (20.5-51.1); MEAN CORPUSCULAR HEMOGLOBIN 24 pg (27-31); MEAN CORPUSCULAR HGB CONC 32 g/dL (33-37); MEAN CORPUSCULAR VOLUME 74.5 fL (80-94); MONOCYTES # (AUTO) 0.4 K/uL (0.8-1.0); MONOCYTES % (AUTO) 6.2 % (1.7-9.3); NEUTROPHILS # (AUTO) 5.1 K/uL (1.8-7.7); NEUTROPHILS % (AUTO) 76.7 % (42.2-75.2); PLATELET COUNT (AUTO) 272 K/uL (140-450); RED BLOOD CELL COUNT(AUTO) 3.97 MIL/uL (4.20-6.10); RED CELL DISTRIBUTION WIDTH 16.7 % (11.6-13.7); WHITE BLOOD COUNT (AUTO) 6.6 K/uL (4.8-10.8)
--- NOTE | 2020-10-26 07:30 | NUR ---
ENDORSED TO DAY SHIFT NURSE FOR CONTINUITY OF CARE
--- NOTE | 2020-10-26 07:30 | NUR ---
RECEIVED BEDSIDE REPORT FROM TAX AGENT NURSE. PATIENT SUPINE IN BED, HOB 30 DEGREES, ANSWERS TO NAME, CONTACT PRECAUTIONS FOR MRSA. BREATHING EVEN AND UNLABORED, NO SINGS OF ACUTE DISTRESS NOTED. TRACH TO VENT: ACVC 24% FIO2, 450 VT, RR 18, PEEP 5. G TUBE FEEDING RUNNING: GLUCERNA 1.2 @ 65 ML/HR. L HAND 20G INFUSING NS @ 5ML/HR. SEIZURE PRECAUTIONS IN PLACE. ON LINE CSR IN PLACE, SAFETY MEASURES IN PLACE.
[2020-10-26 08:00] VITALS: BP 112/74
[2020-10-26] MEDS: VIMPAT 10 MG/ML PO SCH (09:00)
[2020-10-26] MEDS: POLYVINYL ALCOHOL 1.4% OP 15 ML SOL BOTH EYES SCH ×3 (09:30→17:39)
[2020-10-26] MEDS: ASPIRIN 81 MG TAB.CHEW GT SCH (09:31)
[2020-10-26] MEDS: DOXAZOSIN 2 MG TAB GT SCH (09:33)
[2020-10-26] MEDS: amLODIPine 5 MG TAB GT SCH (09:34)
[2020-10-26] MEDS: FAMOTIDINE 20 MG TAB GT SCH (09:34)
[2020-10-26] MEDS: MUPIROCIN CA NASAL 2% 1GM TUBE NS SCH (09:36)
[2020-10-26] MEDS: SUCRALFATE 1 GM TAB PO SCH (09:36)
[2020-10-26] MEDS: APIXABAN 2.5 MG TAB PO SCH (09:39)
[2020-10-26] MEDS: levETIRAcetam 500 MG TAB PO SCH (09:43)
[2020-10-26] MEDS: ATORVASTATIN 20 MG TAB PO SCH (09:43)
--- NOTE | 2020-10-26 09:45 | NUR ---
ADMINISTERED SCHEDULED MEDS PER MD ORDER. MED EDUCATION PROVIDED, REINFORCEMENT NEEDED. G TUBE RESIDUAL 40 ML, FLUSHED BEFORE AND AFTER MEDS. WOUND CARE NURSE AT BEDSIDE: ASSISTED WITH WOUND CARE, WOUND PHOTOS TAKEN AND ADDED TO PATIENT CHART. PATIENT SOILED WITH URINE, CHANGED ALL DIRTY LINEN. REPOSITIONED AND OFFLOADED PRESSURE WITH PILLOWS. SEIZURE PRECAUTIONS IN PLACE, SAFETY MEASURES IN PLACE.
[2020-10-26] MEDS: POTASSIUM CHLORIDE 20% 40 MEQ/15 ML UDC GT SCH ×2 (09:46→14:05)
[2020-10-26] MEDS: METOPROLOL 25 MG TAB PO SCH (09:46)
[2020-10-26] MEDS: ASCORBIC ACID 500 MG TAB PO SCH (09:46)
[2020-10-26] MEDS: CHLORHEXADINE GLUC 2% CLOTH TP SCH (09:47)
[2020-10-26] MEDS ORDERED: ZOS3.375PM IV (10:57)
[2020-10-26] MEDS ORDERED: VANC1PLA7 IV (10:57)
--- NOTE | 2020-10-26 12:15 | NUR ---
PATIENT SLEEPING AT THIS TIME, SUPINE, HOB 30 DEGREES. BREATHING EVEN AND UNLABORED, NO SIGNS OF ACUTE DISTRESS NOTED.
--- NOTE | 2020-10-26 12:59 | NUR ---
WOUND CARE EVALUATION NOTE: SKIN ASSESSMENT DONE WITH THIS 65 YO MALE ADMITTED WITH TRACH BLEEDING AND PRESSURE INJURY. PAST MEDICAL HX CHRONIC HYPOXEMIC RESPIRATORY FAILURE, CAD STATUS POST CABG X2 IN 05/2020, STATUS POST AORTIC VALVE REPAIR 05/27/2020 WITH UNDERLYING CHRONIC HYPOXEMIC RESPIRATORY FAILURE, STATUS POST TRACHEOSTOMY SINCE 06/10/2020 AND HISTORY OF FACIAL TRAUMA, STATUS POST NECK DISSECTION. PT ABLE TO MAKE EYES CONTACT, LIPS READING FOR YES, NO QUESTIONS. PT. SKIN DRY AND WARM, BLE NO EDEMA, PEDAL PULSES PRESENT AND NORMAL. RIGHT EARS SMALL AMOUNT PURULENT DRAINAGE, MILD ODOR, NO PAIN. PER PRIMARY RN WILL NOTIFY PHYSICIAN. INTEGUMENTARY: -RIGHT FACE S/P NECK DISSECTION SKIN INTACT SOFT TO TOUCH -RIGHT EAR SMALL AMOUNT PURULENT DRAINAGE, MILD ODOR, NO PAIN. -SENIOR TALENT ACQUISITION SPECIALIST RELATED PRESSURE INJURY STAGE 2, 1X1.5CM SUPERFICIAL WOUND BED MOIST NO ODOR, BRIAN WOUND SKIN INTACT. -SACRALCOCCYX PRESSURE INJURY STAGE 4, 7X5X0.2CM 100% RED GRANULATING TISSUE WOUND EDGE FLAT, NO ODOR, BRIAN-WOUND SKIN HEALED SCAR MOIST. -BILATERAL HEELS BLANCHABLE INTACT SKIN RECOMMENDATIONS: -SACRALCOCCYX AND NECK WOUNDS CLEANSE WITH WOUND CARE SOLUTION, PAT DRY, APPLY ADAPTIC DRESSING TO WOUND BED AND COVER WITH DRY DRESSING AND SECURE WITH TAPE. -APPLY HEEL PROTECTORS WITH OFFLOADING -TURN AND REPOSITION PATIENT Q 2H -ASSESS AND MONITOR SKIN CONDITION DURING POSITION CHANGE -OFFLOAD BILATERAL HEELS BY PLACING PILLOWS UNDER CALVES AT ALL TIMES, UNLESS OTHERWISE CONTRAINDICATED -PRESSURE REDISTRIBUTION SURFACE AND PLACING PILLOWS/ OFFLOADING SACRALCOCCYX AND LEFT HIP -KEEP SKIN CLEAN AND DRY AT ALL TIMES. PLEASE CONTACT WOUND CARE NURSE FOR ANY CHANGE OF SKIN CONDITION
--- NOTE | 2020-10-26 14:06 | NUR ---
ADMINISTERED SCHEDULED MEDS PER MD ORDER. MED EDUCATION PROVIDED, REINFORCEMENT NEEDED. G TUBE FLUSHED BEFORE AND AFTER MEDS. PATIENT REPOSITIONED AND OFFLOADED PRESSURE WITH PILLOWS. BREATHING EVEN AND UNLABORED, NO SIGNS OF ACUTE DISTRESS NOTED.
--- NOTE | 2020-10-26 14:48 | NUR ---
DC PLANNING: ORDERS RECEIVED TO DISCHARGE PATIENT TO [facility]AC[facility], PATIENT WILL RETURN TO [facility]. PATIENT IS T/V/P, CCT TRANSPORT ARRANGED WITH [facility] ([phone]). SPOKE WITH CHUY IN ADMITTING AT [facility], ASSIGNED ROOM 11B, PATIENT WILL BE IN ISOLATION FOR MRSA AND SERRATIA. SPOKE WITH DR. GLEZ TO CLARIFY ORDERS FOR IV ANTIBIOTICS, STATES PATIENT WILL CONTINUE ON ZOSYN IV AND VANCO IV FOR SEVEN MORE DAYS. DR. GLEZ WILL FOLLOW PATIENT AT FACILITY, [facility] TRANSPORT PLACED ON WILL CALL. PHONE NUMBER AT [facility] TO CALL REPORT IS [phone]. ALSO SPOKE WITH PATIENTS ITZEL HU BY PHONE HIS NEXT OF KIN, NOTIFIED HER OF PATIENT DC TODAY. Addendum: 10/26/20 at 1532 by Kristen Barron DC PLANNING: SPOKE WITH JERICA, CONFIRMS THAT [facility] WAS CALLED FOR A 5:00 PM INSIDE SALES TERRITORY MANAGER. ROOM NUMBER AND REPORT NUMBER ENDORSED.
--- NOTE | 2020-10-26 16:01 | NUR ---
ADMINISTERED PRN NORCO FOR BACK PAIN, SEE PAIN ASSESSMENT NOTES.
[2020-10-26 16:42] VITALS: BP 106/71
--- NOTE | 2020-10-26 17:20 | NUR ---
[facility] AT BEDSIDE FOR PAT[facility]SF[facility]. DISCHARGE TEACHING PROVIDED, REINFORCEMENT NEEDED. BREATHING EVEN AND UNLABORED, NO SIGNS OF ACUTE DISTRESS NOTED. L HAND IV 20G IN PLACE FOR ABX ADMINISTRATION. VITAL SIGNS: 112/74 BP, 97% SPO2, 70 MA, 18 RR. PATIENT STABLE AT THIS TIME.
--- NOTE | 2020-10-26 18:00 | NUR ---
REPORT GIV[facility] RN AT [facility].
[2020-10-26] MEDS ORDERED: VIMPAT 10 MG/ML PO SCH (21:00)
== END 2020-10-26 18:20 | DRG 720 ==
LOC: MED 20:58 → MTU 23:19
PROVIDERS: ADMIT Preventive Medicine Preventive Medicine/Occupational Environmental Medicine; ATTEND Preventive Medicine Preventive Medicine/Occupational Environmental Medicine
PROC: 5A1955Z Respiratory Ventilation, Greater than 96 Consecutive Hours (ICD-10-PCS; principal; 2020-10-22)
DX: A41.1 Sepsis due to other specified staphylococcus (principal); J96.21 Acute and chronic respiratory failure with hypoxia; J15.6 Pneumonia due to other Gram-negative bacteria; L89.153 Pressure ulcer of sacral region, stage 3; Z93.0 Tracheostomy status; R13.10 Dysphagia, unspecified; E44.1 Mild protein-calorie malnutrition; G81.91 Hemiplegia, unspecified affecting right dominant side; E88.09 Other disorders of plasma-protein metabolism, not elsewhere classified; N39.0 Urinary tract infection, site not specified; G40.909 Epilepsy, unspecified, not intractable, without status epilepticus; E87.6 Hypokalemia; B95.7 Other staphylococcus as the cause of diseases classified elsewhere; D64.9 Anemia, unspecified; E78.5 Hyperlipidemia, unspecified; I10 Essential (primary) hypertension; I25.10 Atherosclerotic heart disease of native coronary artery without angina pectoris; K21.9 Gastro-esophageal reflux disease without esophagitis; Z79.01 Long term (current) use of anticoagulants; Z85.89 Personal history of malignant neoplasm of other organs and systems; Z86.718 Personal history of other venous thrombosis and embolism; Z93.1 Gastrostomy status; Z95.1 Presence of aortocoronary bypass graft; Z20.822 Contact with and (suspected) exposure to COVID-19; Z68.22 Body mass index [BMI] 22.0-22.9, adult
CPT/HCPCS: 36415; 70491; 71045; 71250; 80048; 80053; 80202; 81001; 83605; 83735; 84100; 84484; 85025; 85610; 85651; 85730; 86140; 86886; 86900; 86901; 87040; 87070; 87081; 87086; 87186; 87205; 93005; 93970; 94003; 94640; 96365; 96375; 99285; J2001; J2543; J3370; J3480; J7030; J7060; Q9967

== ENCOUNTER 2020-12-30 19:19 | Inpatient (IN) | payer MEDICAID, SELFPAY ==
[~2020-12-30] VITALS: Ht 170.2 cm; Wt 68.9 kg
[2020-12-30 19:19] VITALS: BP 100/76
[~2020-12-30 19:19] MED LIST: AMLO10TA GT; APIX5TAB PO; ASCO500T95 PO; ASPI-1822 GT; ATOR10TA51 GT; DOXA2TAB1 GT; FAMO-90 GT; LACO10SO3 PO; LEVE100021 PO; METO25TA PO; SUCR1TAB35 PO; VANC1PLA7 IV; ZOS3.375PM IV
--- NOTE | 2020-12-30 19:19 | NUR ---
PATIENT ARRIVED VIA EMS AND TAKEN TO BED 6 VIA GURNEY. AT AT BEDSIDE FOR ASSISTENCE IN VENT SETUP. ERMD COLLEEN AT BEDSIDE.
--- NOTE | 2020-12-30 19:20 | NUR ---
PATIENT 65 MALE BIBA FROM [facility] FOR C/O IRREGULAR HR. PER EMS REPORT FROM FACILITY PATIENT HAD RAPID RR AND IRRAGULAR HR. PATIENT PRESENT WITH RESPIRATIONS EVEN AND UNLABORED. PER EMS PATIENT WAS SUCTIONED EN ROUTE AND RR RETURNED TO NORMAL. PATIENT VENT TO TRACH. ERMD AT BEDSIDE FOR MEDICAL EALUATION. PATIENT RADIAL PULSES STRONG AND EQUAL BILAT. PATIENT PLACED ON CARDAC MONITOR. PATIENT NOTED WITH AFIB ON MONITOR. ALL OTHER VSS. BED IS LOCKED AND IN LOWEST POSITION. MEDHX: CHRONIC RESPIRATORY FAILURE, EPILEPSY, HTN, CHRONIC AFIB, HX OF CABG, CAD, VENT-TRACH, G-TUBE NKA
[2020-12-30] MEDS ORDERED: PIPERACILLIN/TAZOBACTAM 3.375 GM in DEXT 5% MINI-BAG PLUS 50 ML IV ONE (19:35)
[2020-12-30] MEDS ORDERED: NACL 0.9% 500 ML IV SCH (19:35)
[2020-12-30] MEDS ORDERED: VANCOMYCIN 1,000 MG in DEXTROSE 5% 250 ML IV ONE (19:35)
[2020-12-30 20:01] LABS: BASOPHILS % (AUTO) 0.1 % (0.0-2.0); EOSINOPHILS # (AUTO) 0.1 K/uL (0-0.4); EOSINOPHILS % (AUTO) 0.4 % (0.0-4.0); HEMATOCRIT 29.3 % (36-52); HEMOGLOBIN 8.9 g/dL (12.0-18.0); LYMPHOCYTES # (AUTO) 0.3 K/uL (2.0-11.5); LYMPHOCYTES % (AUTO) 2.2 % (20.5-51.1); MEAN CORPUSCULAR HEMOGLOBIN 21 pg (27-31); MEAN CORPUSCULAR HGB CONC 30 g/dL (33-37); MEAN CORPUSCULAR VOLUME 69.8 fL (80-94); MONOCYTES # (AUTO) 0.7 K/uL (0.8-1.0); MONOCYTES % (AUTO) 5.1 % (1.7-9.3); NEUTROPHILS # (AUTO) 12.9 K/uL (1.8-7.7); NEUTROPHILS % (AUTO) 92.2 % (42.2-75.2); PLATELET COUNT (AUTO) 354 K/uL (140-450); RED CELL DISTRIBUTION WIDTH 18.2 % (11.6-13.7)
[2020-12-30] MEDS ORDERED: PIPERACILLIN/TAZOBACTAM 3.375 GM VIAL IV ONE (20:19)
[2020-12-30] MEDS ORDERED: VANCOMYCIN 1,000 MG VIAL ONE (20:19)
[2020-12-30 20:20] LABS: ALBUMIN 1.8 g/dL (3.4-5.0); CARBON DIOXIDE 34.9 mmol/L (21-32); CREATININE 0.7 mg/dL (0.6-1.3); POTASSIUM 3.9 mmol/L (3.5-5.1); TOTAL BILIRUBIN 0.2 mg/dL (0.0-1.0)
[2020-12-30 20:22] LABS: PROTHROMBIN TIME 11.4 secs (10.8-13.4)
[2020-12-30] MEDS ORDERED: MAG SULF 2000 MG/WATER PREMIX 50 ML IV ONE (20:55)
[2020-12-30] MEDS ORDERED: NACL 0.9% 500 ML IV ONE (20:55)
--- NOTE | 2020-12-30 21:54 | NUR ---
SPOKE WITH DECLAN HU (NIECE) AND GAVE UPDATE ON PATIENT'S STATUS.
--- NOTE | 2020-12-30 21:59 | NUR ---
ERMD MADE AWARE OF PATIENT'S BP: 82/58, NEW ORDERS GIVEN. PATIENT REMAINSON NIPPLE THREADER.
[2020-12-30 22:16] LABS: APPEARANCE,URINE CLEAR (CLEAR); BILIRUBIN,URINE NEGATIVE (NEGATIVE); BLOOD, URINE NEGATIVE (NEGATIVE); COLOR,URINE ORANGE (YELLOW); LEUKOCYTE ESTERASE ,URINE NEGATIVE (NEGATIVE); NITRITE, URINE NEGATIVE (NEGATIVE); PH,URINE 7.5 (5.0-9.0); UGLUCOSE NEGATIVE (NEGATIVE)
--- NOTE | 2020-12-30 22:30 | NUR ---
PATIENT BP INCREASED TO 112/58. ERMD MADE AWARE.
--- NOTE | 2020-12-30 23:31 | NUR ---
RT AT BEDSIDE, SUCTION PERFORMED. PATIENT TOLERATED WELL. PATIENT REMAIN ON TOXICOLOGIST. VENT SETTINGS REMAIN THE SAME. BED IS LOCKED AND IN LOWEST POSITION.
--- NOTE | 2020-12-30 23:53 | NUR ---
2300 SPUTUM WAS UPTAINED AND SENT TO LAB
[2020-12-31 00:17] VITALS: BP 116/78
--- NOTE | 2020-12-31 01:16 | NUR ---
Patient appears to be resting comfortably in bed. Vital Signs within normal limits. Respirations even and unlabored.
--- NOTE | 2020-12-31 03:14 | NUR ---
RT AT BEDSIDE FOR EVALUATION OF PATIENT. 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 PATIENT RESPIRATIONS ARE EVEN AND UNLABORED. SKIN IS WARM AND DRY TO TOUCH.
[2020-12-31 03:40] VITALS: BP 104/73
[2020-12-31] MEDS ORDERED: [UNRECOGNIZED DRUG - OTHER] IV SCH (05:00)
[2020-12-31] MEDS ORDERED: PIPERACILLIN IV SCH (05:00)
[2020-12-31] MEDS ORDERED: TAZOBACTAM IV SCH (05:00)
[2020-12-31] MEDS ORDERED: PIPERACILLIN/TAZOBACTAM 3.375 GM VIAL IV ONE ×3 (05:21→22:28)
[2020-12-31] MEDS: PIPERACILLIN/TAZOBACTAM 3.375 GM in DEXTROSE 5% 50 ML IV SCH ×3 (05:39→22:42)
--- NOTE | 2020-12-31 05:42 | NUR ---
Patient appears to be resting comfortably in bed. Vital Signs within normal limits. Respirations even and unlabored. Patient given medications as ordered. Iv remains patent, good blood return noted. Patient remains on monitor technician. Patient repositioned for comfort measures. Patient bed is locked and in lowest postion.
--- NOTE | 2020-12-31 06:00 | NUR ---
PROVIDED PERINEAL CARE TO PATIENT. SKIN LEFT CLEAN AND DRY. PATIENT NOTED WITH SACRAL WOUND. WOUND CLEANED WITH NS, PAT DRY, AND NON-ADHERENT BANDAGE PLACED. WOUND PICTURES OBTAINED AND ELZBIETA MEDEL SIGNED. PATIENT REPOSITIONED FOR COMFORT.
--- NOTE | 2020-12-31 06:30 | NUR ---
RT AT BEDSIDE TO PROVIDE SUCTION AND ORAL CARE. PATIENT TOELRATED WELL.
--- NOTE | 2020-12-31 07:15 | NUR ---
REPORT GIVEN TO ELVIS CANO, TRANSFER OF CARE.
--- NOTE | 2020-12-31 07:49 | NUR ---
SHAILA SWABBED AND GIVEN TO KIMBERLEY JONES
[2020-12-31 08:31] VITALS: BP 105/84
[2020-12-31] MEDS ORDERED: VANCOMYCIN PER PHARMACY MC PRN (08:50)
[2020-12-31] MEDS: VANCOMYCIN 1GM/DEXT 5% PREMIX 200 ML IV SCH ×2 (08:50→23:28)
[2020-12-31] MEDS ORDERED: VANCOMYCIN 1,000 MG VIAL ONE ×2 (08:51→23:18)
[2020-12-31] MEDS ORDERED: ASCORBIC ACID 500 MG TAB PO SCH (09:00)
[2020-12-31] MEDS ORDERED: SOD CHLORIDE IV SCH (09:00)
[2020-12-31] MEDS ORDERED: SUCRALFATE 1 GM TAB PO SCH (09:00)
[2020-12-31] MEDS ORDERED: APIXABAN 2.5 MG TAB PO SCH (09:00)
[2020-12-31] MEDS ORDERED: LEVETIRACETAM 1500 MG PO SCH (09:00)
[2020-12-31] MEDS ORDERED: METOPROLOL 25 MG TAB PO SCH (09:00)
[2020-12-31] MEDS ORDERED: NON-FORMULARY ITEM (Atorvastatin Calcium 1 TAB) GT SCH (09:00)
[2020-12-31] MEDS ORDERED: levETIRAcetam 500 MG TAB PO SCH (09:00)
[2020-12-31] MEDS ORDERED: VANCOMYCIN IV SCH (09:00)
--- NOTE | 2020-12-31 09:05 | NUR ---
SUCTION X2, YELLOW THICK SECRETIONS. ORAL CARE GIVEN AT THIS TIME.
[2020-12-31] MEDS ORDERED: LACOSAMIDE 200 MG/20 ML GT/PO SCH ×2 (09:11→21:00)
[2020-12-31] MEDS: ASCORBIC ACID 500 MG/5 ML ORASYR GT SCH ×2 (09:34→22:57)
[2020-12-31] MEDS: amLODIPine 5 MG TAB GT SCH (09:35)
[2020-12-31] MEDS: ASPIRIN 81 MG TAB.CHEW GT SCH (09:38)
[2020-12-31] MEDS: METOPROLOL 25 MG TAB GT SCH ×2 (09:42→22:56)
[2020-12-31] MEDS: APIXABAN 2.5 MG TAB GT SCH ×2 (09:42→22:58)
[2020-12-31] MEDS: levETIRAcetam 100 MG/ML ORASYR GT SCH ×2 (09:45→22:55)
[2020-12-31] MEDS: SUCRALFATE 1 GM TAB GT SCH ×2 (09:47→22:57)
[2020-12-31] MEDS: DOXAZOSIN 2 MG TAB GT SCH ×2 (09:49→22:56)
[2020-12-31] MEDS: FAMOTIDINE 20 MG TAB GT SCH ×2 (09:50→22:57)
--- NOTE | 2020-12-31 12:30 | NUR ---
SUCTION PASSED 2X, SOME YELLOW, THICK SECRETIONS.
--- NOTE | 2020-12-31 12:46 | NUR ---
PT TURNED ON R SIDE, BM DARK BROWN/GREEN SOFT. PT WAS ABLE TO PASS URINE, GARCIA CATH PLACED.
--- NOTE | 2020-12-31 16:12 | NUR ---
PT WAS TURNED ONTO L SIDE, SUCTION 2X NO SECRETIONS AT THIS TIME.
--- NOTE | 2020-12-31 16:51 | NUR ---
PER DR GLEZ, VSS HAVE BEEN STABLE, PT IS ABLE TO BE DOWNGRADED TO TELEMETRY
--- NOTE | 2020-12-31 18:33 | NUR ---
PT WAS CHANGED TO SUPINE POSITION AT THIS TIME.
--- NOTE | 2020-12-31 19:24 | NUR ---
received report from Rosie CANO for continuity of care
--- NOTE | 2020-12-31 19:24 | NUR ---
Pt report given to MARIPOSA RN. Transfer of care at this time.
--- NOTE | 2020-12-31 21:08 | NUR ---
Called shabana the niece and spoke about code status-- said that they would like him to be full code. but will follow up with the facility for further information
--- NOTE | 2020-12-31 21:11 | NUR ---
Called [facility] and spoke to nurse supervisor asbestos removal Fernando and relayed that patient is a full code but paperwork is not signed for patient.
--- NOTE | 2020-12-31 21:14 | NUR ---
Dr. Eddie Cam examining patient.
--- NOTE | 2020-12-31 21:26 | NUR ---
Patient will be admitted to care of AMARIS STEPHENSON. Admited to TELEMETRY. Will go to room 121B. Belongings list completed. Report to JEROME ARENAS.
[2020-12-31 21:47] VITALS: BP 131/79
--- NOTE | 2020-12-31 21:57 | NUR ---
S/W ROS FAUST OF PT, WHO STATES SHE WOULD LIKE TO THE PT TO HAVE FULL CODE STATUS. PER DECLAN, PT IS A WATERS OF THE [facility] AND SHE HAS BEEN THE POINT OF CONTACT SINCE HIS PAST HOSPITALIZATION IN [place] 2020; NO CURRENT POA IN PLACE.
--- NOTE | 2020-12-31 22:00 | NUR ---
RECEIVED PATIENT FROM ER NURSE FOR CONTINUITY OF CARE. CC DYSPNEA/RESP DISTRESS. DX SEPSIS, AFIB WITH RVR, PNA. PATIENT AWAKE, ALERT, AND ORIENT, NON VERBAL. ON TELE MONITOR. RESPIRATORY EVEN AND UNLABORED, ON TRACH TO VENT, VENT SETTING: AC, FIO2 30%, VT 450, PEEP 5, RATE 20, O2 SAT 96%. LUNG SOUND COARSE, DIMINISH THROUGHOUT. NO SIGN OF DISTRESS AT THIS TIME. SKIN WARM, DRY, NON DIAPHORETIC. SACRAL WOUND NOTED WITH DRESSING INTACT, CLEAN AND DRY. IV ON LEFT UPPER ARM 20G, INTACT AND PATENT, SALINE LOCK. IV ON RIGHT FOOT 20G, INTACT AND PATENT, SALINE LOCK. G-TUBE IN PLACE, INTACT AND PATENT, CLAMPED, RESIDUAL LESS THAN 5CC. ABDOMEN SOFT, NON DISTENDED. BOWEL SOUND ACTIVE TO [address], CLEAR YELLOW URINE NOTED. MRSA COLLECTED. ORIENT PATIENT TO ROOM AND UNIT. PLAN OF CARE DISCUSSED. PRECAUTION IN PLACE. CALL LIGHT WITHIN REACH. WILL CONTINUE TO MONITOR.
--- NOTE | 2020-12-31 22:07 | NUR ---
PT TRANSPORTED FROM ED TO 121 PT REMAINS ON VENT. VENT WAS EXCHANGED FOR TRILOGY W/ SETTINGS MATCHING CARESCAPE (NO CHANGES TO SETTINGS). PT TOLERATED TRANSPORT WELL. TRILOGY PLUGGED INTO RED OUTLET W/ ALARMS ON AND AUDIBLE. AMBU IS AT BEDSIDE WILL CONTINUE TO MONITOR.
[2020-12-31 22:29] VITALS: BP 130/51
--- NOTE | 2020-12-31 22:42 | NUR ---
SCHEDULE MEDICATIONS GIVEN THROUGH G-TUBE WITH EDUCATION. PATIENT TOLERATED WELL, NO SIGN OF DISTRESS NOTED. PRECAUTION IN PLACE. CALL LIGHT WITHIN REACH. WILL CONTINUE TO MONITOR.
[2020-12-31] MEDS: SIMVASTATIN 20 MG TAB GT SCH (22:55)
--- NOTE | 2020-12-31 23:16 | NUR ---
NOTIFY BY LIEN SEARCHER. PATIENT'S HEART RATE IS 173. SUCTION GIVEN THROUGH TRACH AND ORAL. THICK SECRETION NOTED. PATIENT TOLERATED WELL. NO SIGN OF RESPIRATORY DISTRESS. PATIENT HEART RATE BACK TO BASELINE 123 AT 2319, O2 SAT REMAIN ABOVE 90%.
--- NOTE | 2020-12-31 23:45 | NUR ---
ATTEMPTED TO CALL PATIENT'S NIECE, DECLAN, TO UPDATE PATIENT PMH. PHONE WAS NOT ANSWERED, VOICE MESSAGE NOT AVAILABLE. WILL CALL BACK LATER.
--- NOTE | 2020-12-31 23:50 | NUR ---
ATTEMPT TO CALL [facility] TO UPDATE PATIENT'S PMH. PHONE CALL WAS NOT ANSWERED, UNABLE TO LEAVE VOICE MESSAGE. WILL CALL BACK LATER.
[2021-01-01] VITALS: BP 136/82
--- NOTE | 2021-01-01 02:00 | NUR ---
ROUND CHECK. PATIENT IS SLEEPING, CHEST RISE AND FALL, NO SIGN OF DISTRESS NOTED. O2 SAT 94%. PRECAUTION IN PLACE. CALL LIGHT WITHIN REACH. WILL CONTINUE TO MONITOR.
[2021-01-01 04:00] VITALS: BP 148/79
--- NOTE | 2021-01-01 04:00 | NUR ---
CLEAN, CHANGE AND REPOSITION PATIENT. PATIENT TOLERATED WELL. NO SIGN OF DISTRESS NOTED. PRECAUTION IN PLACE. CALL LIGHT WITHIN REACH. WILL CONTINUE TO MONITOR.
[2021-01-01] MEDS ORDERED: PIPERACILLIN/TAZOBACTAM 3.375 GM VIAL IV ONE (04:24)
[2021-01-01] MEDS: PIPERACILLIN/TAZOBACTAM 3.375 GM in DEXTROSE 5% 50 ML IV SCH ×3 (05:22→21:51)
--- NOTE | 2021-01-01 06:00 | NUR ---
REPOSITION PATIENT. PATIENT TOLERATED WELL. NO SIGN OF DISTRESS NOTED. O2 SAT 94%. PRECAUTION IN PLACE. CALL LIGHT WITHIN REACH. WILL CONTINUE TO MONITOR.
[2021-01-01 06:38] LABS: BASOPHILS % (AUTO) 0.2 % (0.0-2.0); EOSINOPHILS # (AUTO) 0.1 K/uL (0-0.4); EOSINOPHILS % (AUTO) 0.6 % (0.0-4.0); HEMATOCRIT 27.7 % (36-52); HEMOGLOBIN 8.6 g/dL (12.0-18.0); MEAN CORPUSCULAR HEMOGLOBIN 21 pg (27-31); MEAN CORPUSCULAR HGB CONC 31 g/dL (33-37); MEAN CORPUSCULAR VOLUME 68.6 fL (80-94); MONOCYTES # (AUTO) 0.9 K/uL (0.8-1.0); MONOCYTES % (AUTO) 6.5 % (1.7-9.3); NEUTROPHILS # (AUTO) 11.4 K/uL (1.8-7.7); PLATELET COUNT (AUTO) 357 K/uL (140-450); RED BLOOD CELL COUNT(AUTO) 4.04 MIL/uL (4.20-6.10); WHITE BLOOD COUNT (AUTO) 13.4 K/uL (4.8-10.8)
--- NOTE | 2021-01-01 07:35 | NUR ---
ENDORSED PATIENT TO AM NURSE FOR CONTINUITY OF CARE. PATIENT IS STABLE.
[2021-01-01 08:00] VITALS: BP 146/88
--- NOTE | 2021-01-01 08:00 | NUR ---
NURSE REPORT REPORT OBTAINED FROM JOSE M NURSE ERIC AT 0750 AND THIS NURSE ASSUMED CARE OF THIS PATIENT. VS TAKEN. AFEB. HR 111. TELE MONITOR WITH ST 115. ON TRACH TO VENTILATOR- WITH O2 3L/MIN GOING INTO VENT TUBING. TIDAL VOLUME ABOUT 536. RT IN ROOM AT THE TIME, TO SHOW THE USE OF HOME VENTILATOR SYSTEM. GT CLAMPED WAND MEDS TO BE GIVEN CRUSHED INTO TUBE.
[2021-01-01 08:01] LABS: ANION GAP 11.5 (8-16); CARBON DIOXIDE 28.6 mmol/L (21-32); CREATININE 0.6 mg/dL (0.6-1.3); POTASSIUM 3.1 mmol/L (3.5-5.1)
[2021-01-01 08:24] LABS: LYMPHOCYTES % (AUTO) 7.5 % (20.5-51.1); NEUTROPHILS % (AUTO) 85.2 % (42.2-75.2)
[2021-01-01] MEDS: levETIRAcetam 100 MG/ML ORASYR GT SCH ×2 (09:00→21:30)
[2021-01-01] MEDS: VANCOMYCIN 1,000 MG in DEXTROSE 5% 250 ML IV SCH ×2 (09:19→17:00)
[2021-01-01] MEDS: ASCORBIC ACID 500 MG/5 ML ORASYR GT SCH ×2 (09:24→21:30)
[2021-01-01] MEDS: amLODIPine 5 MG TAB GT SCH (09:25)
[2021-01-01] MEDS: ASPIRIN 81 MG TAB.CHEW GT SCH (09:26)
[2021-01-01] MEDS: SUCRALFATE 1 GM TAB GT SCH ×2 (09:26→21:35)
[2021-01-01] MEDS: DOXAZOSIN 2 MG TAB GT SCH ×2 (09:27→21:34)
[2021-01-01] MEDS: METOPROLOL 25 MG TAB GT SCH ×2 (09:27→21:39)
[2021-01-01] MEDS: LACOSAMIDE 200 MG/20 ML GT SCH ×2 (09:28→21:00)
[2021-01-01] MEDS: FAMOTIDINE 20 MG TAB GT SCH ×2 (09:28→21:30)
[2021-01-01] MEDS: APIXABAN 2.5 MG TAB GT SCH ×2 (09:29→21:59)
--- NOTE | 2021-01-01 09:42 | NUR ---
PATIENT HAS BEEN SCREENED AND CATEGORIZED HIGH NUTRITION RISK. PATIENT WILL BE SEEN WITHIN 1-2 DAYS OF ADMISSION. NUTRITION CONSULT AND REFERRAL RECEIVED FOR TUBE FEEDING AND WOUNDS. 12/31/2020-01/01/[address]
[2021-01-01 12:00] VITALS: BP 117/86
--- NOTE | 2021-01-01 12:00 | NUR ---
NURSE CARE VSS. AFEB. TEMP 99. TELE MONITOR SHOWS ST WITH 1 PVC- RATE 102. NO SXS OF PAIN OR DISTRESS. NEED SUCTIONING PRN FROM TRACH.
--- NOTE | 2021-01-01 13:11 | NUR ---
01/01/21 RD INITIAL ASSESSMENT COMPLETED PLEASE REFER TO NUTRITION ASSESSMENT UNDER CARE ACTIVITY FOR ESTIMATED NUTRITIONAL NEEDS. RD RECOMMENDATIONS: 1. RECOMMEND VITAL AF 1.2 AT GOAL RATE OF 70 ML/HR. START AT 30 ML/HR AND INCREASE GOAL RATE 10 ML Q4H OR TOLERATED TO GOAL. 2. RECOMMEND FREE WATER FLUSH OF 200 ML Q6H . 3. CONTINUE VITAMIN C TO PROMOTE WOUND HEALING. 4. RD WILL F/U 2-3 DAYS; HIGH RISK. [place], RD
[2021-01-01 16:00] VITALS: BP 106/74
--- NOTE | 2021-01-01 16:00 | NUR ---
NURSE CARE VSS. AFEB. HR 102. BP 106/74. TELE MONITOR - WITH SR 100. GARCIA DRAINED LIGHT BLOOD-TINGED URINE.
--- NOTE | 2021-01-01 19:45 | NUR ---
NURSE REPORT REPORT GIVEN TO NIGHT NURSE NAYELI TO ASSUME CARE OF PATIENT. ALL QUESTIONS ANSWERED. TUBE FEEDING IS SUPPOSED TO BE STARTED OF VITAL AF GOAL OF 70 ML/HR, STARTING AT 30 ML/HR AND TO INCREASE BY 10 ML/HR EVERY 4 HOURS AND WATER FLUSHED 200 ML EVERY 6 H. MD WILL BE NOTIFIED. NURSING DIRECTOR INTERNATIONAL WILL NEED TO GET THE FORMULA FROM DIETARY.
[2021-01-01] MEDS: SIMVASTATIN 20 MG TAB GT SCH (21:39)
[2021-01-02 00:52] VITALS: BP 117/78
[2021-01-02] MEDS: VANCOMYCIN 1,000 MG in DEXTROSE 5% 250 ML IV SCH (02:31)
[2021-01-02] MEDS ORDERED: PIPERACILLIN/TAZOBACTAM 3.375 GM VIAL IV ONE (05:12)
[2021-01-02] MEDS: PIPERACILLIN/TAZOBACTAM 3.375 GM in DEXTROSE 5% 50 ML IV SCH ×3 (05:18→21:34)
[2021-01-02 05:32] VITALS: BP 121/82
[2021-01-02 06:30] LABS: BASOPHILS % (AUTO) 0.2 % (0.0-2.0); EOSINOPHILS # (AUTO) 0.1 K/uL (0-0.4); EOSINOPHILS % (AUTO) 0.9 % (0.0-4.0); HEMATOCRIT 31.8 % (36-52); HEMOGLOBIN 9.7 g/dL (12.0-18.0); LYMPHOCYTES # (AUTO) 1.3 K/uL (2.0-11.5); LYMPHOCYTES % (AUTO) 10.2 % (20.5-51.1); MEAN CORPUSCULAR HEMOGLOBIN 21 pg (27-31); MEAN CORPUSCULAR HGB CONC 30 g/dL (33-37); MEAN CORPUSCULAR VOLUME 69.4 fL (80-94); MONOCYTES # (AUTO) 0.7 K/uL (0.8-1.0); MONOCYTES % (AUTO) 5.5 % (1.7-9.3); NEUTROPHILS # (AUTO) 10.6 K/uL (1.8-7.7); NEUTROPHILS % (AUTO) 83.2 % (42.2-75.2); PLATELET COUNT (AUTO) 380 K/uL (140-450); RED BLOOD CELL COUNT(AUTO) 4.59 MIL/uL (4.20-6.10); RED CELL DISTRIBUTION WIDTH 18.2 % (11.6-13.7); WHITE BLOOD COUNT (AUTO) 12.7 K/uL (4.8-10.8)
--- NOTE | 2021-01-02 06:35 | NUR ---
PATIENT VITALS ARE STABLE, TRACHEAL SUCTION WAS DONE O2 STAT 95%, TURING Q2, PATEINT IS ALERT ORIENTED X2 , NON VERBAL TRACH TO VENT.
--- NOTE | 2021-01-02 07:30 | NUR ---
RECEIVED REPORT FROM VISUAL DESIGN LEAD RN FOR CONTINUITY OF CARE. PATIENT IS IN BED RESTING. NO S/S OF DISTRESS. RESPIRATIONS ARE EVEN AND UNLABORED. ALL SAFETY PRECAUTIONS IN PLACE.
[2021-01-02 08:00] VITALS: BP 100/71
[2021-01-02] MEDS: LACOSAMIDE 200 MG/20 ML GT SCH ×2 (09:00→23:06)
[2021-01-02] MEDS: levETIRAcetam 100 MG/ML ORASYR GT SCH ×2 (09:21→21:27)
[2021-01-02] MEDS: ASCORBIC ACID 500 MG/5 ML ORASYR GT SCH ×2 (09:21→21:35)
[2021-01-02] MEDS: FAMOTIDINE 20 MG TAB GT SCH ×2 (09:21→21:26)
[2021-01-02] MEDS: SUCRALFATE 1 GM TAB GT SCH ×2 (09:21→21:26)
[2021-01-02] MEDS: APIXABAN 2.5 MG TAB GT SCH ×2 (09:22→21:24)
[2021-01-02] MEDS: ASPIRIN 81 MG TAB.CHEW GT SCH (09:22)
[2021-01-02] MEDS: DOXAZOSIN 2 MG TAB GT SCH ×2 (09:23→21:00)
[2021-01-02] MEDS: amLODIPine 5 MG TAB GT SCH (09:30)
[2021-01-02] MEDS: METOPROLOL 25 MG TAB GT SCH ×2 (09:30→21:00)
--- NOTE | 2021-01-02 09:30 | NUR ---
ADMINISTERED SCHEDULED MEDICATIONS. PATIENT IV SITE IS DRY, PATENT AND INTACT. NO S/S OF DISTRESS. RESPIRATIONS ARE EVEN AND UNLABORED. ALL SAFETY PRECAUTIONS IN PLACE.
[2021-01-02 09:54] LABS: CARBON DIOXIDE 26.4 mmol/L (21-32); CREATININE 0.7 mg/dL (0.6-1.3); POTASSIUM 2.4 mmol/L (3.5-5.1)
--- NOTE | 2021-01-02 09:54 | NUR ---
CRITICAL VALUE RECEIVED. POTASSIUM IS AT 2.4. DOCTOR IS AWARE.
[2021-01-02 09:55] LABS: MAGNESIUM 2.3 mg/dL (1.8-2.4); PHOSPHORUS 3.4 mg/dL (2.5-4.9); TOTAL BILIRUBIN 0.5 mg/dL (0.0-1.0)
--- NOTE | 2021-01-02 11:02 | NUR ---
WOUND CARE EVALUATION NOTE: SKIN ASSESSMENT DONE WITH THIS 65 YO MALE ADMITTED WITH INITIAL DX OF SOB. PT. ADMITTED SACRAL PRESSURE INJURY WITH PREVIOUSLY ADMISSION IDENTIFIED STAGE 4. PAST MEDICAL HX CHRONIC HYPOXEMIC RESPIRATORY FAILURE, CAD STATUS POST CABG X2 IN 05/2020, PT WITH RIGHT FACE S/P NECK DISSECTION SKIN INTACT SOFT TO TOUCH. PT. SKIN DRY AND WARM, BLE NO EDEMA, PEDAL PULSES PRESENT AND NORMAL. POC DISCUSSED WITH PRIMARY RN. INTEGUMENTARY: -RIGHT FACE S/P NECK DISSECTION SKIN INTACT SOFT TO TOUCH -SACRALCOCCYX PRESSURE INJURY STAGE 4, 6X4X0.2CM 100% RED GRANULATING TISSUE WOUND EDGE FLAT, NO ODOR, SMALL AMOUNT SANGUINOUS DRAINAGE, BRIAN-WOUND SKIN HEALED SCAR MOIST. -BILATERAL HEELS BLANCHABLE REDNESS INTACT SKIN RECOMMENDATIONS: -SACRALCOCCYX CLEANSE WITH WOUND CARE SOLUTION, PAT DRY, APPLY HYDROGEL TO WOUND BED AND COVER WITH COMPOSITE DRESSING QD AND PRN IF SOILING. -APPLY HEEL PROTECTORS WITH OFFLOADING -TURN AND REPOSITION PATIENT Q 2H -ASSESS AND MONITOR SKIN CONDITION DURING POSITION CHANGE -OFFLOAD BILATERAL HEELS BY PLACING PILLOWS UNDER CALVES AT ALL TIMES, UNLESS OTHERWISE CONTRAINDICATED -PRESSURE REDISTRIBUTION SURFACE AND PLACING PILLOWS/ OFFLOADING SACRALCOCCYX AND LEFT HIP -KEEP SKIN CLEAN AND DRY AT ALL TIMES. PLEASE CONTACT WOUND CARE NURSE FOR ANY CHANGE OF SKIN CONDITION
--- NOTE | 2021-01-02 11:15 | NUR ---
DR. GRAHAM AT BEDSIDE FOR CARDIAC CONSULT WITH PATIENT.
[2021-01-02] MEDS ORDERED: POTASSIUM CHLORIDE 10 MEQ TABER PO SCH (11:20)
[2021-01-02 12:00] VITALS: BP_SYST 106; BP_SYST 116; BP_DIAS 70; BP_DIAS 71
[2021-01-02] MEDS: POTASSIUM CHL 40 MEQ/ D5-1/2NS 1,000 ML IV SCH (12:37)
[2021-01-02] MEDS ORDERED: POTASSIUM CHLORIDE 20% 40 MEQ/15 ML UDC GT SCH (13:00)
--- NOTE | 2021-01-02 13:45 | NUR ---
PATIENT RESTING IN BED. NO S/S OF DISTRESS. RESPIRATIONS ARE EVEN AND UNLABORED. ALL SAFETY PRECAUTIONS IN PLACE. WILL CONTINUE TO MONITOR.
[2021-01-02 16:00] VITALS: BP 106/70
[2021-01-02] MEDS: SKINTEGRITY HYDROGEL TP SCH (16:43)
--- NOTE | 2021-01-02 16:44 | NUR ---
HELPED CHANGE PATIENT WITH DIGITAL EDITOR. PATIENT TOLERATED ACTIVITY WELL. BOWEL MOVEMENT NOTED. PATIENT IS CLEAN AND DRY. NO COMPLAINTS OF PAIN. ALL SAFETY PRECAUTIONS IN PLACE.
--- NOTE | 2021-01-02 19:33 | NUR ---
ENDORSED PATIENT TO BUTTER MELTER RN FOR CONTINUITY OF CARE. PATIENT IS STABLE.
--- NOTE | 2021-01-02 19:34 | NUR ---
RECEIVED BEDSIDE ENDORSEMENT FROM AM NURSE. PATIENT IN BED AWAKE IN SEMI PEREZ'S. WITH TRACH TO VENT. D5 1/2 NS WITH KCL 40 MEQ AT 50 ML/HR INFUSING WELL. G-TUBE FEEDING RUNNING AT 60 ML. NO ACUTE DISTRESS NOTED. ALL SAFETY MEASURES ARE IN PLACE. CALL LIGHT WITHIN REACH
[2021-01-02 20:00] VITALS: BP 99/67
--- NOTE | 2021-01-02 21:34 | NUR ---
ADMINISTERED MEDICATIONS PER MD ORDERED.
[2021-01-02] MEDS: SIMVASTATIN 20 MG TAB GT SCH (21:36)
[2021-01-02] MEDS: VANCOMYCIN HCL 1.25 GM in DEXTROSE 5% 250 ML IV SCH (23:09)
[2021-01-03] VITALS: BP 99/63
--- NOTE | 2021-01-03 00:45 | NUR ---
ASSISTED TRANSFER TABLE OPERATOR HELPER IN CHANGING THE PATIENT. SEEN GARCIA CATHETER OUT WHILE DOING PT CARE.
--- NOTE | 2021-01-03 01:55 | NUR ---
INSERTED A NEW GARCIA CATHETER, TOLERATED PROCEDURE WELL.
[2021-01-03 04:00] VITALS: BP 97/65
[2021-01-03] MEDS: PIPERACILLIN/TAZOBACTAM 3.375 GM in DEXTROSE 5% 50 ML IV SCH ×3 (05:17→20:46)
[2021-01-03 06:33] LABS: BASOPHILS % (AUTO) 0.2 % (0.0-2.0); EOSINOPHILS # (AUTO) 0.1 K/uL (0-0.4); EOSINOPHILS % (AUTO) 0.7 % (0.0-4.0); HEMATOCRIT 26.3 % (36-52); HEMOGLOBIN 8.2 g/dL (12.0-18.0); LYMPHOCYTES # (AUTO) 0.8 K/uL (2.0-11.5); LYMPHOCYTES % (AUTO) 4.2 % (20.5-51.1); MEAN CORPUSCULAR HEMOGLOBIN 21 pg (27-31); MEAN CORPUSCULAR HGB CONC 31 g/dL (33-37); MEAN CORPUSCULAR VOLUME 68.1 fL (80-94); MONOCYTES # (AUTO) 0.9 K/uL (0.8-1.0); MONOCYTES % (AUTO) 4.7 % (1.7-9.3); NEUTROPHILS # (AUTO) 16.4 K/uL (1.8-7.7); NEUTROPHILS % (AUTO) 90.2 % (42.2-75.2); PLATELET COUNT (AUTO) 329 K/uL (140-450); RED BLOOD CELL COUNT(AUTO) 3.86 MIL/uL (4.20-6.10); RED CELL DISTRIBUTION WIDTH 18.3 % (11.6-13.7); WHITE BLOOD COUNT (AUTO) 18.2 K/uL (4.8-10.8)
[2021-01-03 07:00] LABS: ANION GAP 11.3 (8-16); CARBON DIOXIDE 27.1 mmol/L (21-32); CREATININE 0.7 mg/dL (0.6-1.3)
--- NOTE | 2021-01-03 07:30 | NUR ---
ENDORSED TO AM NURSE FOR CONTINUITY OF CARE. PT IS STABLE.
--- NOTE | 2021-01-03 07:32 | NUR ---
RECEIVED REPORT FROM PROGRAM MANAGEMENT MANAGER RN FOR CONTINUITY OF CARE. PATIENT IS RESTING IN BED. NO S/S OF DISTRESS. ALL SAFETY PRECAUTIONS IN PLACE.
[2021-01-03 08:00] VITALS: BP 101/69
[2021-01-03] MEDS: LACOSAMIDE 200 MG/20 ML GT SCH ×2 (09:00→21:07)
[2021-01-03] MEDS ORDERED: amLODIPine 5 MG TAB GT SCH (09:00)
[2021-01-03] MEDS: ASPIRIN 81 MG TAB.CHEW GT SCH (09:53)
[2021-01-03] MEDS: APIXABAN 2.5 MG TAB GT SCH ×2 (09:55→21:04)
[2021-01-03] MEDS: levETIRAcetam 100 MG/ML ORASYR GT SCH ×2 (09:56→21:02)
[2021-01-03] MEDS: FAMOTIDINE 20 MG TAB GT SCH ×2 (09:57→21:02)
[2021-01-03] MEDS: SUCRALFATE 1 GM TAB GT SCH ×2 (09:57→21:01)
[2021-01-03] MEDS: DOXAZOSIN 2 MG TAB GT SCH ×2 (10:00→21:00)
--- NOTE | 2021-01-03 10:00 | NUR ---
ADMINISTERED SCHEDULED MEDICATIONS TO PATIENT. PATIENT UNDERSTOOD. NO S/S OF DISTRESS AND NO COMPLAINTS OF PAIN. ALL SAFETY PRECAUTIONS IN PLACE.
[2021-01-03] MEDS: METOPROLOL 25 MG TAB GT SCH ×2 (10:01→21:06)
[2021-01-03] MEDS: ASCORBIC ACID 500 MG/5 ML ORASYR GT SCH ×2 (10:06→21:13)
[2021-01-03] MEDS: POTASSIUM CHLORIDE 20% 40 MEQ/15 ML UDC GT SCH (10:06)
[2021-01-03] MEDS: VANCOMYCIN HCL 1.25 GM in DEXTROSE 5% 250 ML IV SCH ×2 (10:18→23:45)
[2021-01-03] MEDS: POTASSIUM CHL 40 MEQ/ D5-1/2NS 1,000 ML IV SCH (10:27)
--- NOTE | 2021-01-03 10:40 | NUR ---
NOTIFIED MD OF CRITICAL VALUE: POTASSIUM 2.4.
[2021-01-03 10:46] LABS: POTASSIUM 2.4 mmol/L (3.5-5.1)
[2021-01-03 12:00] VITALS: BP 101/63
--- NOTE | 2021-01-03 12:30 | NUR ---
PATIENT RESTING IN BED. NO S/S OF DISTRESS. WILL CONTINUE TO MONITOR.
--- NOTE | 2021-01-03 13:35 | NUR ---
CHANGED PATIENT WITH STUDENT NURSE PICKER AND SORTER LOAD AND UNLOAD. PATIENT TOLERATED ACTIVITY WELL. ONE BOWEL MOVEMENT NOTED. ALL SAFETY PRECAUTIONS IN PLACE.
[2021-01-03] MEDS: SKINTEGRITY HYDROGEL TP SCH (13:39)
[2021-01-03] MEDS ORDERED: KCL 20 MEQ/WATER INJ PREMIX 200 ML IV ONE (14:00)
--- NOTE | 2021-01-03 14:27 | NUR ---
DC PLANNING: KATYA SPOKE WITH THE PATIENTS ITZEL HU BY PHONE. 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 THE PATIENT CAME FROM [facility] AND HAS BEEN THERE SINCE SEPTEMBER OF THIS YEAR, TRACH, VENT AND PEG. HE IS ALERT AND ABLE TO MOUTH RESPONSES TO QUESTIONS BUT IS TOTAL CARE AND BEDBOUND. KATYA GOT THE CONTACT INFORMATION FOR THE PATIENTS [facility] WORK[facility] NATALI NOBLESDA, PHONE NUMBER [phone], FAX NUMBER [phone]. NATALI WOULD LIKE THE PATIENT TO BE PLACED IN A [facility] POST DISCHARGE, KATYA EXPLAINED THAT [facility] HAS ALLEGEDLY CHANGED HIS M/GOMEZ CODE TO [facility] AND THAT THIS MIGHT CAUSE A DELAY IN DC. NATALI STATES SHE WILL SPEAK WITH [facility] TO SEE IF THEY WILL ACCEPT WITH AN OUT OF [facility] CODE. KATYA WILL CONTINUE TO FOLLOW FOR NEEDS. Addendum: 01/03/21 at 1513 by Kristen Barron CM DC PLANNING: KATYA RECEIVED A CALL FROM NATALI AT THE [facility], STATES THAT [facility] CAN ACCEPT PATIENT WHEN HE'S DC'D. PHONE FOR FACILITY IS [phone], FAX IS [phone]. ALSO SPOKE WITH THE PATIENTS ITZEL MANRIQUEZ TO UPDATE HER ON THE DC PLANS, DECLAN STATES SHE'S IN AGREEMENT WITH PLAN. KATYA WILL FOLLOW FOR NEEDS. Addendum: 01/05/21 at 1235 by Kristen Barron CM DC PLANNING: KATYA SPOKE WITH LAURA IN ADMISSIONS AT [facility], ENDORSED THAT CLINICALS WILL BE FAXED ALTHOUGH PATIENT IS NOT YET CLINICALLY STABLE FOR DISCHARGE, LAURA WILL REVIEW THE INFORMATION AND ACKNOWLEDGES THAT SHE SPOKE TO NATALI AT THE [facility]. KATYA ALSO LEFT A MESSAGE FOR NATALI ENDORSING THAT A REFERRAL HAS BEEN SENT TO [facility] AND ALSO ASKED FOR ANOTHER FACILITY CHOICE. KATYA WILL FOLLOW FOR NEEDS. Addendum: 01/09/21 at 1239 by Kristen Barron CM DC PLANNING: KATYA LEFT A MESSAGE FOR LAURA IN ADMISSIONS AT [facility] ASKING IF THE PATIENT IS ACCEPTED TO THEIR FACILITY ([phone]). KATYA ALSO LEFT A MESSAGE FOR HIS [facility] WORKER NATALI WILLIAM ASKING FOR AN UPDATE ON PLACEMENT.([phone]). PATIENTS WBC'S ARE TRENDING DOWN, H&H AT 7.7 TODAY. K+ 3.1, K+ RIDER ORDERED BY ATTENDING MD. ANTICIPATE PATIENT WILL DC TO [facility] IN AM, KATYA WILL FOLLOW FOR NEEDS. Addendum: 01/09/21 at 1557 by Kristen Barron CM DC PLANNING: KATYA SPOKE WITH NATALI WILLIAM FROM THE [facility], STATES SHE WILL FOLLOW UP WITH [facility] FOR PLACEMENT. KATYA WILL FOLLOW FOR NEEDS. Addendum: 01/11/21 at 1553 by Kristen Barron CM DC PLANNING: KATYA SPOKE WITH LAURA FROM [facility] ON SATURDAY THE , SHE STATES THEY WILL NOT ACCEPT THE PATIENT BECAUSE HE IS M/GOMEZ WITH NO SECONDARY. KATYA LEFT A MESSAGE FOR HIS [facility] WORK[facility] NATALI WILLIAM ON SATURDAY AND TODAY ASKING FOR AN UPDATED DC PLAN. KATYA ENDORSED THAT IF NATALI DOES NOT CALL THAT KATYA WILL SEND REFERRAL TO [facility] HIS ORIGINATING FACILITY FOR CONSIDERATION. 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 WILL FOLLOW FOR NEEDS. Addendum: 01/12/21 at 0930 by Kristen Barron CM DC PLANNING: LEFT FOR NATALI NATALIIA AT THE [facility] ENDORSED THAT HAS A DC ORDER AND WILL APPROACH [facility] TO RETURN HIM THERE. KATYA WILL FOLLOW FOR NEEDS. Addendum: 01/12/21 at 1304 by Kristen Barron DC PLANNING: KATYA SENT A REFERRAL TO [facility] [place], SPOKE WITH DIPIKA IN ADMITTING, SHE WILL CALL ONCE SHE REVIEWS HIS INFORMATION. KATYA WILL FOLLOW FOR NEEDS. Addendum: 01/12/21 at 1410 by Kristen Barron CM DC PLANNING: PATIENT ACCEPTED BACK TO [facility] [place], STATION 1, ROOM 115. REPORT TO BE CALLED TO EXT [phone], [facility] TRANSPORT ALS LEVEL WITH RT ARRANGED FOR 1600 PROCESSING MGR TIME. ABOVE ENDORSED TO THE PATIENTS JEROME CRESPO CM WILL FOLLOW FOR NEEDS.
--- NOTE | 2021-01-03 15:05 | NUR ---
01/03/21 RD FOLLOW UP COMPLETED PLEASE REFER TO NUTRITION ASSESSMENT UNDER CARE ACTIVITY FOR ESTIMATED NUTRITIONAL NEEDS. 1. CONTINUE VITAL AF 1.2 AT GOAL RATE OF 70 ML/HR. START AT 30 ML/HR AND INCREASE GOAL RATE 10 ML Q4H OR TOLERATED TO GOAL. -PROVIDE 2016 KCAL/DAY AND 126 GM OF PROTEIN/DAY, MEETING 100% OF ESTIMATED KCAL AND PROTEIN NEEDS 2. RECOMMEND FREE WATER FLUSH OF 200 ML Q6H . 3. CONTINUE VITAMIN C TO PROMOTE WOUND HEALING. 4. RD WILL F/U 2-3 DAYS; HIGH RISK. ALYCE PLUMMER RD
[2021-01-03 16:00] VITALS: BP 122/82
--- NOTE | 2021-01-03 16:00 | NUR ---
SPOKE WITH DR. GLEZ ABOUT PATIENT'S POTASSIUM LEVEL AND POC. DR. GLEZ CONFIRMED TO RUN D5 1/2 NS 40MEQ 1000ML AND K RIDER AT THE SAME TIME.
--- NOTE | 2021-01-03 19:30 | NUR ---
RECEIVED ENDORSEMENT FROM AM NURSE. PATIENT IS AWAKE IN BED. NO SOB NOTED. TRACH TO VENT SATING AT 100%. IVF D5 1/2 NS WITH KCL 40 MEQ AT 50 ML INFUSING ON THE RIGHT FOOT. GARCIA CATHETER IN PLACE DRAINING WELL. ALL SAFETY PRECAUTIONS ARE IN PLACE. CALL LIGHT WITHIN REACH.
--- NOTE | 2021-01-03 19:30 | NUR ---
ENDORSED PATIENT TO TRAFFIC II MANAGER RN FOR CONTINUITY OF CARE. PATIENT IS STABLE.
[2021-01-03 20:00] VITALS: BP 111/77
[2021-01-03] MEDS: SIMVASTATIN 20 MG TAB GT SCH (21:02)
--- NOTE | 2021-01-03 21:04 | NUR ---
ADMINISTERED SCHEDULED MEDICATIONS PER MD ORDERED.
[2021-01-04] VITALS: BP 109/70
--- NOTE | 2021-01-04 00:30 | NUR ---
CHANGED PT VENT SETTING TO PRESSURE CONTROL DUE TO AN INCREASE OF PEAK PRESSURE. INCREASE FIO2 TO MAINTAIN SAT ABOVE 92%. WILL CONTINUE TO MONITOR.
[2021-01-04] MEDS ORDERED: HYDROcodone/APAP 10/325 MG 1 TAB TAB PO PRN (01:20)
[2021-01-04] MEDS ORDERED: HYDROcodone/APAP 5/325 MG 1 TAB TAB ONE (01:23)
[2021-01-04] MEDS: HYDROcodone/APAP 5/325 MG 1 TAB TAB PO PRN ×2 (01:40→08:20)
[2021-01-04] MEDS: POTASSIUM CHL 40 MEQ/ D5-1/2NS 1,000 ML IV SCH ×2 (03:25→23:25)
[2021-01-04 04:00] VITALS: BP 128/89
[2021-01-04] MEDS: PIPERACILLIN/TAZOBACTAM 3.375 GM in DEXTROSE 5% 50 ML IV SCH ×3 (05:08→20:59)
--- NOTE | 2021-01-04 05:13 | NUR ---
ZOSYN GIVEN ORDERED.
[2021-01-04 06:35] LABS: HEMATOCRIT 28.7 % (36-52); HEMOGLOBIN 8.9 g/dL (12.0-18.0); MEAN CORPUSCULAR HEMOGLOBIN 22 pg (27-31); MEAN CORPUSCULAR HGB CONC 31 g/dL (33-37); MEAN CORPUSCULAR VOLUME 69.8 fL (80-94); PLATELET COUNT (AUTO) 371 K/uL (140-450); RED BLOOD CELL COUNT(AUTO) 4.12 MIL/uL (4.20-6.10); RED CELL DISTRIBUTION WIDTH 18.7 % (11.6-13.7); WHITE BLOOD COUNT (AUTO) 23.7 K/uL (4.8-10.8)
[2021-01-04 06:36] LABS: ALBUMIN 1.9 g/dL (3.4-5.0); ANION GAP 14.6 (8-16); CARBON DIOXIDE 26.3 mmol/L (21-32); CREATININE 0.7 mg/dL (0.6-1.3); MAGNESIUM 1.8 mg/dL (1.8-2.4); PHOSPHORUS 2.3 mg/dL (2.5-4.9); TOTAL BILIRUBIN 0.3 mg/dL (0.0-1.0)
[2021-01-04 07:14] LABS: POTASSIUM 2.9 mmol/L (3.5-5.1)
--- NOTE | 2021-01-04 07:28 | NUR ---
ENDORSED PATIENT TO AM NURSE FOR CONTINUITY OF CARE.
[2021-01-04 08:00] VITALS: BP_SYST 141; BP_DIAS 92; BP_DIAS 97
--- NOTE | 2021-01-04 08:00 | NUR ---
RCV'D PT ON MECHANICAL VENTILATOR WITH CHARTED SETTINGS. PT IS TRACHED WITH PORTEX 8. TRACH IS IN PLACE AND SECURED WITH TRACH TIE. VENT CONNECTED TO RED OUTLET. ALARMS AUDIBLE. AMBU BAG AT BEDSIDE. SXN'D LARGE AMOUNT OF THICK BROWN SECRETIONS. BREATH SOUNDS COARSE. HME CHANGED. NO SOB OR DISTRESS NOTED. WILL CONTINUE TO MONITOR PATIENT.
[2021-01-04] MEDS: POTASSIUM CHLORIDE 20% 40 MEQ/15 ML UDC GT SCH (08:16)
[2021-01-04] MEDS: levETIRAcetam 100 MG/ML ORASYR GT SCH ×2 (08:16→21:31)
[2021-01-04] MEDS: ASCORBIC ACID 500 MG/5 ML ORASYR GT SCH ×2 (08:16→21:32)
[2021-01-04] MEDS: SUCRALFATE 1 GM TAB GT SCH ×2 (08:19→21:31)
[2021-01-04] MEDS: FAMOTIDINE 20 MG TAB GT SCH ×2 (08:19→21:32)
[2021-01-04] MEDS: APIXABAN 2.5 MG TAB GT SCH ×2 (08:19→21:33)
[2021-01-04] MEDS: ASPIRIN 81 MG TAB.CHEW GT SCH (08:20)
[2021-01-04] MEDS: METOPROLOL 25 MG TAB GT SCH ×2 (08:20→21:00)
[2021-01-04] MEDS: ACETAMINOPHEN 325 MG TAB PO PRN (08:20)
[2021-01-04] MEDS: DOXAZOSIN 2 MG TAB GT SCH ×2 (08:27→21:31)
[2021-01-04] MEDS: LACOSAMIDE 200 MG/20 ML GT SCH ×2 (08:27→21:32)
--- NOTE | 2021-01-04 08:31 | NUR ---
SCHEDULED MEDICATIONS DUE GIVEN. WILL CONTINUE TO MONITOR.
--- NOTE | 2021-01-04 08:32 | NUR ---
FLACC 6, NORCO GIVEN AT THIS TIME. TEMP 100.5, TYLENOL GIVEN AT THIS TIME PER MD ORDERS. WILL CONTINUE TO MONITOR.
[2021-01-04] MEDS: VANCOMYCIN HCL 1.25 GM in DEXTROSE 5% 250 ML IV SCH ×2 (09:00→23:48)
[2021-01-04 09:30] LABS: LYMPHOCYTES % (MANUAL) 4 % (20-46)
[2021-01-04 09:31] LABS: MONOCYTES % (MANUAL) 5 % (5-12)
--- NOTE | 2021-01-04 11:54 | NUR ---
CHECKED ON PATIENT. SXN'D LARGE AMOUNT OF THICK BROWN SECRETIONS. CHANGED HME. NO SOB OR DISTRESS NOTED. WILL CONTINUE TO MONITOR PATIENT.
[2021-01-04 12:00] VITALS: BP 95/68
[2021-01-04] MEDS ORDERED: POTASSIUM CHLORIDE 40 MEQ, LIDOCAINE MPF 1% 25 MG in NACL 0.9% 250 ML IV SCH (12:00)
[2021-01-04] MEDS ORDERED: POTASSIUM CHLORIDE 20% 40 MEQ/15 ML UDC GT SCH (12:00)
[2021-01-04] MEDS ORDERED: POTASSIUM CHLORIDE 10 MEQ TABER PO SCH (12:00)
--- NOTE | 2021-01-04 12:35 | NUR ---
SCHEDULED MEDICATIONS DUE GIVEN. WILL CONTINUE TO MONITOR.
[2021-01-04] MEDS: SKINTEGRITY HYDROGEL TP SCH (13:00)
[2021-01-04] MEDS: MUPIROCIN CA NASAL 2% 1GM TUBE NS SCH (14:06)
[2021-01-04] MEDS: CHLORHEXADINE GLUC 2% CLOTH TP SCH (14:06)
--- NOTE | 2021-01-04 14:07 | NUR ---
SCHEDULED MEDICATIONS DUE GIVEN. WILL CONTINUE TO MONITOR.
[2021-01-04 16:00] VITALS: BP 106/67
[2021-01-04] MEDS: metroNIDAZOLE 500 MG TAB GT SCH (18:35)
--- NOTE | 2021-01-04 18:35 | NUR ---
SCHEDULED MEDICATIONS DUE GIVEN. WILL CONTINUE TO MONITOR.
--- NOTE | 2021-01-04 19:27 | NUR ---
GAVE REPORT TO FISHER DIP NET NURSE FOR CONTINUITY OF CARE. PATIENT IN STABLE CONDITION.
--- NOTE | 2021-01-04 19:28 | NUR ---
REPORT GIVEN FROM AM NURSE. PATIENT IN BED RESTING. NO SOB NOTED. SAFETY PRECAUTIONS ARE IN PLACE. TRACH TO VENT IN PLACE. TUBE FEEDING ONGOING, IVF INFUSING WELL. WILL CONTINUE TO MONITOR.
[2021-01-04 20:00] VITALS: BP 103/69
--- NOTE | 2021-01-04 21:31 | NUR ---
ADMINISTERED SCHEDULED MEDS 2100 GIVEN ORDERED. WILL CONTINUE TO MONITOR.
[2021-01-04] MEDS: SIMVASTATIN 20 MG TAB GT SCH (21:32)
[2021-01-05] VITALS: BP 114/67
[2021-01-05] MEDS: metroNIDAZOLE 500 MG TAB GT SCH ×4 (00:11→18:13)
--- NOTE | 2021-01-05 00:19 | NUR ---
FLAGYL GIVEN SCHEDULED AT MIDNIGHT PER MD ORDERED.
--- NOTE | 2021-01-05 03:18 | NUR ---
MADE ROUNDS, PATIENT IS SLEEPING. NO S/S OF RESPIRATORY DISTRESS. WILL CONTINUE TO MONITOR.
[2021-01-05 04:00] VITALS: BP 129/79
[2021-01-05] MEDS: PIPERACILLIN/TAZOBACTAM 3.375 GM in DEXTROSE 5% 50 ML IV SCH ×3 (04:47→20:13)
--- NOTE | 2021-01-05 04:48 | NUR ---
ZOSYN GIVEN SCHEDULED PER MD ORDERED.
[2021-01-05 06:07] LABS: BASOPHILS % (AUTO) 0.1 % (0.0-2.0); EOSINOPHILS # (AUTO) 0.2 K/uL (0-0.4); EOSINOPHILS % (AUTO) 1.3 % (0.0-4.0); HEMATOCRIT 24.9 % (36-52); HEMOGLOBIN 7.7 g/dL (12.0-18.0); LYMPHOCYTES # (AUTO) 1.1 K/uL (2.0-11.5); LYMPHOCYTES % (AUTO) 5.8 % (20.5-51.1); MEAN CORPUSCULAR HEMOGLOBIN 21 pg (27-31); MEAN CORPUSCULAR HGB CONC 31 g/dL (33-37); MEAN CORPUSCULAR VOLUME 68.3 fL (80-94); MONOCYTES # (AUTO) 0.7 K/uL (0.8-1.0); MONOCYTES % (AUTO) 3.9 % (1.7-9.3); NEUTROPHILS % (AUTO) 88.9 % (42.2-75.2); PLATELET COUNT (AUTO) 302 K/uL (140-450); RED BLOOD CELL COUNT(AUTO) 3.64 MIL/uL (4.20-6.10); WHITE BLOOD COUNT (AUTO) 19.1 K/uL (4.8-10.8)
[2021-01-05 06:45] LABS: ANION GAP 13.4 (8-16); CARBON DIOXIDE 24.8 mmol/L (21-32); CREATININE 0.8 mg/dL (0.6-1.3); POTASSIUM 3.2 mmol/L (3.5-5.1)
[2021-01-05 06:50] LABS: PHOSPHORUS 2.4 mg/dL (2.5-4.9)
--- NOTE | 2021-01-05 07:21 | NUR ---
RECEIVED REPORT FROM CLOTH MERCERIZING SUPERVISOR NURSE FOR CONTINUITY OF CARE, POC DISCUSSED. PT IS RESTING IN BED ON TRACH TO VENT WITH FIO2 AT 24, SATURATIONS AT 97%. PT IS ON TELE MONITOR SATURATING AT 105. PT HAS A GARCIA CATH IN PLACE, DRAINING YELLOW URINE. PT HAS A SACRAL WOUND. PT HAS A RIGHT FOOT 20 G RUNNING 40MEQ POTASSIUM D5NS AT 5O, AND A RIGHT FA 24 G RUNNING TKO. PT IS ON [id number] PRECAUTIONS FOR MRSA OF THE NARES. PT IS RECEIVING G-TUBE FEEDING OF VITAL AF AT 70 ML WITH Q6 FLUSHES OF 100. ALL SAFETY MEASURES IN PLACE, CALL LIGHT WITHIN REACH. WILL CONTINUE TO MONITOR.
--- NOTE | 2021-01-05 07:30 | NUR ---
ENDORSED TO AM NURSE FOR CONTINUITY OF CARE. PATIENT IN STABLE CONDITION.
[2021-01-05 08:00] VITALS: BP 106/75
[2021-01-05] MEDS ORDERED: FUROSEMIDE 20 MG/2 ML VIAL IVP SCH (09:00)
[2021-01-05] MEDS: ASPIRIN 81 MG TAB.CHEW GT SCH (09:22)
[2021-01-05] MEDS: SUCRALFATE 1 GM TAB GT SCH ×2 (09:24→20:21)
[2021-01-05] MEDS: METOPROLOL 25 MG TAB GT SCH ×2 (09:24→20:22)
[2021-01-05] MEDS: DOXAZOSIN 2 MG TAB GT SCH ×2 (09:24→20:22)
[2021-01-05] MEDS: APIXABAN 2.5 MG TAB GT SCH ×2 (09:25→20:20)
[2021-01-05] MEDS: FAMOTIDINE 20 MG TAB GT SCH ×2 (09:25→20:21)
[2021-01-05] MEDS: POTASSIUM CHLORIDE 20% 40 MEQ/15 ML UDC GT SCH (09:26)
[2021-01-05] MEDS: levETIRAcetam 100 MG/ML ORASYR GT SCH ×2 (09:26→20:22)
[2021-01-05] MEDS: ASCORBIC ACID 500 MG/5 ML ORASYR GT SCH ×2 (09:26→20:20)
[2021-01-05] MEDS: LACOSAMIDE 200 MG/20 ML GT SCH ×2 (09:33→20:33)
[2021-01-05] MEDS: VANCOMYCIN HCL 1.25 GM in DEXTROSE 5% 250 ML IV SCH ×2 (09:34→20:18)
--- NOTE | 2021-01-05 09:34 | NUR ---
ELISHA MEDICATION ADMINISTERED PER MD ORDER, PT TOLERATED ADMINISTRATION. RESIDUAL IS 15ML, FLUSHED WITH 10CC PRIOR TO AND AFTER MEDICATION ADMINISTRATION. BOTH IVS ARE PATENT AND INTACT. ALL SAFETY MEASURES IN PLACE, CALL LIGHT WITHIN REACH. WILL CONTINUE TO MONITOR.
[2021-01-05] MEDS ORDERED: POTASSIUM PHOSPHATE 15 MM in NACL 0.9% 250 ML IV SCH (10:30)
--- NOTE | 2021-01-05 10:37 | NUR ---
ELISHA MEDICATION ADMINISTERED PER MD ORDER FOR POT. LEVEL OF 3.2, PT TOLERATED ADMINISTRATION, ALL SAFETY MEASURES IN PLACE.
[2021-01-05 12:00] VITALS: BP 104/62
--- NOTE | 2021-01-05 12:31 | NUR ---
ELISHA MEDICATION PER MD ORDER, RESIDUAL 5ML, FLUSHED WITH 10 CC PRIOR TO AND AFTER ADMINISTRATION. IV PATENT AND INTACT. PT SATING AT 98%, ALL SAFETY MEASURES IN PLACE, CALL LIGHT WITHIN REACH WILL CONTINUE TO MONITOR.
[2021-01-05] MEDS: SKINTEGRITY HYDROGEL TP SCH (12:35)
--- NOTE | 2021-01-05 13:31 | NUR ---
PT IS STABLE RESTING IN BED WITH EYES CLOSED, TRACH TO VENT SATURATIONS AT 96%. ALL SAFETY MEASURES IN PLACE. CALL LIGHT WITHIN REACH. WILL CONTINUE TO MONITOR.
[2021-01-05] MEDS: CHLORHEXADINE GLUC 2% CLOTH TP SCH (13:43)
[2021-01-05] MEDS: MUPIROCIN CA NASAL 2% 1GM TUBE NS SCH (13:43)
[2021-01-05 16:00] VITALS: BP 110/69
--- NOTE | 2021-01-05 16:54 | NUR ---
PT STABLE IN BED WITH NO ACUTE S/S OF DISTRESS. PT IS SATURATING AT 98%. ALL SAFETY MEASURES IN PLACE, CALL LIGHT WITHIN REACH. WILL CONTINUE TO MONITOR.
--- NOTE | 2021-01-05 18:01 | NUR ---
PT HAS BEEN CLEANED AND REPOSITIONED, PT HAS BEEN SUCTIONED AND ORAL CARE GIVEN. COOLING MEASURES ADMINISTERED DUE TO MILD INCREASED TEMP. ALL SAFETY MEASURES IN PLACE, CALL LIGHT WITHIN REACH. WILL CONTINUE TO MONITOR.
--- NOTE | 2021-01-05 19:01 | NUR ---
PT ENDORSED TO PETROLEUM GEOLOGIST NURSE FOR CONTINUITY OF CAREM POC DISCUSSED. .
[2021-01-05 20:00] VITALS: BP 96/59
--- NOTE | 2021-01-05 20:00 | NUR ---
RECEIVED BEDSIDE REPORT FROM DAY RN FOR CONTINUITY OF CARE. PATIENT AWAKE AND ALERT DURING ROUNDS. NO S/SX OF DISTRESS NOTED AT THIS TIME. IVF AND G TUBE FEEDING INFUSING ORDERED. VSS, AFEBRILE, SATING 97% ON VENT SETTING.WILL CONTINUE POC. BED IN LOW POSITION, SIDE RAILS UP AND BREAKS ON.
[2021-01-05] MEDS: POTASSIUM CHL 40 MEQ/ D5-1/2NS 1,000 ML IV SCH (20:10)
[2021-01-05] MEDS: SIMVASTATIN 20 MG TAB GT SCH (20:21)
--- NOTE | 2021-01-05 21:00 | NUR ---
SUCTIONED PT NEEDED AND MOUTH CARE RENDERED.
--- NOTE | 2021-01-05 22:00 | NUR ---
DUE MEDS GIVEN ORDERED PATIENT TOLERATED IT WELL. NO ADVERSE DRUG REACTION NOTED. WILL CONTINUE TO OBSERVE.
[2021-01-06] VITALS: BP 140/83
--- NOTE | 2021-01-06 | NUR ---
VSS, AFEBRILE, SATING 98% ON VENT SETTING. ST ON TELE MONITOR, HR-112. CALL LIGHT WITHIN REACH. WILL CONTINUE TO OBSERVE.
[2021-01-06] MEDS: metroNIDAZOLE 500 MG TAB GT SCH ×5 (00:56→23:51)
[2021-01-06 02:51] VITALS: BP 103/64
[2021-01-06 04:00] VITALS: BP 119/70
[2021-01-06 05:34] VITALS: BP 208/91
[2021-01-06 05:39] LABS: BASOPHILS % (AUTO) 0.1 % (0.0-2.0); EOSINOPHILS # (AUTO) 0.2 K/uL (0-0.4); EOSINOPHILS % (AUTO) 1.2 % (0.0-4.0); HEMATOCRIT 29.1 % (36-52); HEMOGLOBIN 8.7 g/dL (12.0-18.0); LYMPHOCYTES # (AUTO) 1.5 K/uL (2.0-11.5); LYMPHOCYTES % (AUTO) 8.1 % (20.5-51.1); MEAN CORPUSCULAR HEMOGLOBIN 21 pg (27-31); MEAN CORPUSCULAR HGB CONC 30 g/dL (33-37); MEAN CORPUSCULAR VOLUME 69.4 fL (80-94); MONOCYTES # (AUTO) 0.9 K/uL (0.8-1.0); MONOCYTES % (AUTO) 4.5 % (1.7-9.3); NEUTROPHILS # (AUTO) 16.2 K/uL (1.8-7.7); NEUTROPHILS % (AUTO) 86.1 % (42.2-75.2); PLATELET COUNT (AUTO) 383 K/uL (140-450); RED BLOOD CELL COUNT(AUTO) 4.19 MIL/uL (4.20-6.10); WHITE BLOOD COUNT (AUTO) 18.9 K/uL (4.8-10.8)
[2021-01-06] MEDS: PIPERACILLIN/TAZOBACTAM 3.375 GM in DEXTROSE 5% 50 ML IV SCH ×3 (06:14→21:55)
[2021-01-06 06:34] LABS: ANION GAP 9.1 (8-16); CARBON DIOXIDE 28.8 mmol/L (21-32); CREATININE 0.7 mg/dL (0.6-1.3); TOTAL BILIRUBIN 0.3 mg/dL (0.0-1.0)
[2021-01-06 06:37] LABS: POTASSIUM 2.9 mmol/L (3.5-5.1)
--- NOTE | 2021-01-06 07:30 | NUR ---
Pt stable. Endorsed pt to day Rn for continuity of care. Signing off. Addendum: 01/06/21 at 0802 by Shazia Chang RN RN addendum: Endorsed to charge gang weigher Ingrid that the pt K 2.9
[2021-01-06] MEDS: LACOSAMIDE 200 MG/20 ML GT SCH ×2 (09:00→21:00)
[2021-01-06] MEDS ORDERED: POTASSIUM CHLORIDE 40 MEQ, LIDOCAINE MPF 1% 25 MG in NACL 0.9% 250 ML IV SCH (09:30)
--- NOTE | 2021-01-06 10:03 | NUR ---
RECEIVED REPORT FROM GAVI. PT CAME FOR PNA, DX IS SEPSIS PNA A FIB. IV ACCESS ON LEFT FOOT. G TUBE FEEDING AT 70ML/HR. CHRONIC TRACH TO VENT PT.
[2021-01-06] MEDS: levETIRAcetam 100 MG/ML ORASYR GT SCH ×2 (10:44→21:55)
[2021-01-06] MEDS: POTASSIUM CHLORIDE 20% 40 MEQ/15 ML UDC GT SCH (10:45)
[2021-01-06] MEDS: MUPIROCIN CA NASAL 2% 1GM TUBE NS SCH (10:45)
[2021-01-06] MEDS: METOPROLOL 25 MG TAB GT SCH ×2 (10:45→21:55)
[2021-01-06] MEDS: HYDROcodone/APAP 5/325 MG 1 TAB TAB PO PRN (10:46)
[2021-01-06] MEDS: ASPIRIN 81 MG TAB.CHEW GT SCH (10:47)
[2021-01-06] MEDS: APIXABAN 2.5 MG TAB GT SCH ×2 (10:47→21:55)
[2021-01-06] MEDS: DOXAZOSIN 2 MG TAB GT SCH ×2 (10:48→21:55)
[2021-01-06] MEDS: FAMOTIDINE 20 MG TAB GT SCH ×2 (10:48→21:55)
[2021-01-06] MEDS: SUCRALFATE 1 GM TAB GT SCH ×2 (10:53→21:00)
[2021-01-06] MEDS: ASCORBIC ACID 500 MG/5 ML ORASYR GT SCH ×2 (10:54→21:55)
[2021-01-06] MEDS: VANCOMYCIN HCL 1.25 GM in DEXTROSE 5% 250 ML IV SCH ×2 (10:56→21:00)
[2021-01-06 12:00] VITALS: BP 120/73
[2021-01-06] MEDS: SKINTEGRITY HYDROGEL TP SCH (12:43)
[2021-01-06] MEDS: CHLORHEXADINE GLUC 2% CLOTH TP SCH (14:00)
[2021-01-06 16:00] VITALS: BP 120/76
[2021-01-06] MEDS: POTASSIUM CHL 40 MEQ/ D5-1/2NS 1,000 ML IV SCH (16:34)
--- NOTE | 2021-01-06 17:31 | NUR ---
REMINDED RT TO COLLECT THE SPUTUM SAMPLE FOR THE SPUTUM CULTURE.
--- NOTE | 2021-01-06 19:37 | NUR ---
ENDORSED THE NIGHT NURSE FOR CONTINUITY OF CARE. PT IS STABLE.
[2021-01-06] MEDS: SIMVASTATIN 20 MG TAB GT SCH (21:55)
[2021-01-07] MEDS: PIPERACILLIN/TAZOBACTAM 3.375 GM in DEXTROSE 5% 50 ML IV SCH ×3 (05:00→21:19)
[2021-01-07] MEDS: metroNIDAZOLE 500 MG TAB GT SCH ×4 (06:06→23:55)
[2021-01-07 06:11] LABS: BASOPHILS % (AUTO) 0.2 % (0.0-2.0); EOSINOPHILS # (AUTO) 0.1 K/uL (0-0.4); EOSINOPHILS % (AUTO) 0.5 % (0.0-4.0); HEMATOCRIT 24.7 % (36-52); HEMOGLOBIN 7.7 g/dL (12.0-18.0); LYMPHOCYTES # (AUTO) 0.7 K/uL (2.0-11.5); LYMPHOCYTES % (AUTO) 4.4 % (20.5-51.1); MEAN CORPUSCULAR HEMOGLOBIN 21 pg (27-31); MEAN CORPUSCULAR HGB CONC 31 g/dL (33-37); MEAN CORPUSCULAR VOLUME 68.8 fL (80-94); MONOCYTES # (AUTO) 0.8 K/uL (0.8-1.0); MONOCYTES % (AUTO) 5.4 % (1.7-9.3); NEUTROPHILS # (AUTO) 13.8 K/uL (1.8-7.7); NEUTROPHILS % (AUTO) 89.5 % (42.2-75.2); PLATELET COUNT (AUTO) 314 K/uL (140-450); RED BLOOD CELL COUNT(AUTO) 3.59 MIL/uL (4.20-6.10); RED CELL DISTRIBUTION WIDTH 19.2 % (11.6-13.7); WHITE BLOOD COUNT (AUTO) 15.4 K/uL (4.8-10.8)
[2021-01-07 07:14] LABS: ANION GAP 8.2 (8-16); CARBON DIOXIDE 30.1 mmol/L (21-32); CREATININE 0.8 mg/dL (0.6-1.3); POTASSIUM 3.3 mmol/L (3.5-5.1)
--- NOTE | 2021-01-07 07:45 | NUR ---
RECEIVED REPORT FROM NIGHT NURSE, PT IS TRACH TO VENT PT. HAS TUBE FEEDING, AND GARCIA CATHETER. PT HAS WOUND ON SACRAL AREA. NO SOB NOTED AT THE [facility]
[2021-01-07 08:00] VITALS: BP 117/78
[2021-01-07 08:18] VITALS: BP 117/78
--- NOTE | 2021-01-07 08:18 | NUR ---
RECEIVED ON A GAGANDEEP [employer]PIR[employer]S TRILOGY VENTILATOR WITH OXYGEN AT 3LPM VIA BLEED-IN PLUGGED INTO RED OUTLET TOLERATING WELL WITHOUT ADVERSE REACTIONS NOTED TO A PORTEX DCT #7 AIRWAY SECURED WITH A PABLITO TRACH TIE CUFF PRESSURE CHECKED NOTED AMBU BAG NOTED AT BEDSIDE STABLE AWAKE RESPONSIVE TO RECESSING MACHINE OPERATOR VERBAL BY "NODDING OF HEAD" EQUAL CHEST RISE GOOD AERATION THROUGHPUT BILATERAL LUNG PARISH AIRWAY PATENT
[2021-01-07] MEDS: DOXAZOSIN 2 MG TAB GT SCH ×2 (08:34→21:00)
[2021-01-07] MEDS: METOPROLOL 25 MG TAB GT SCH ×2 (08:35→21:00)
[2021-01-07] MEDS: ASPIRIN 81 MG TAB.CHEW GT SCH (08:35)
[2021-01-07] MEDS: SUCRALFATE 1 GM TAB GT SCH ×2 (08:35→21:14)
[2021-01-07] MEDS: FAMOTIDINE 20 MG TAB GT SCH ×2 (08:35→21:14)
[2021-01-07] MEDS: POTASSIUM CHLORIDE 20% 40 MEQ/15 ML UDC GT SCH (08:36)
[2021-01-07] MEDS: APIXABAN 2.5 MG TAB GT SCH ×2 (08:36→21:13)
[2021-01-07] MEDS: ASCORBIC ACID 500 MG/5 ML ORASYR GT SCH ×2 (08:37→21:14)
[2021-01-07] MEDS: VANCOMYCIN HCL 1.25 GM in DEXTROSE 5% 250 ML IV SCH ×2 (08:37→21:19)
[2021-01-07] MEDS: levETIRAcetam 100 MG/ML ORASYR GT SCH ×2 (08:39→21:14)
[2021-01-07] MEDS: LACOSAMIDE 200 MG/20 ML GT SCH ×2 (08:45→21:20)
--- NOTE | 2021-01-07 09:50 | NUR ---
(01/07/21) RD FOLLOW UP COMPLETED PLEASE REFER TO NUTRITION PROGRESS NOTE UNDER CARE ACTIVITY FOR ESTIMATED NUTRITION NEEDS. RD RECOMMENDATIONS: 1.CONTINUE VITAL AF 1.2 AT GOAL RATE OF 70 ML/HR. START AT 30 ML/HR AND INCREASE GOAL RATE 10 ML Q4H OR TOLERATED TO GOAL. THIS PROVIDE 2016 KCAL/DAY AND 126 GM OF PROTEIN/DAY, MEETING 100% OF ESTIMATED KCAL AND PROTEIN NEEDS 2. RECOMMEND FREE WATER FLUSH OF 200 ML Q6H . 3. CONTINUE VITAMIN C TO PROMOTE WOUND HEALING. 4. RD WILL F/U 2-3 DAYS; HIGH RISK. [place], , RDN
--- NOTE | 2021-01-07 10:00 | NUR ---
PT RECEIVED ALL THE MEDICATIONS PER MD ORDER, GAVE ORAL CARE SUCTIONED THE PT, NOTIFIED MD ABOUT THE EXCESS MUCUS ON SUCTIONING. CHNAGED THE WOUND DRESSING AND PT GOWN. WILL CONTINUE TO MONITOR PT.
[2021-01-07] MEDS: POTASSIUM CHL 40 MEQ/ D5-1/2NS 1,000 ML IV SCH (10:34)
[2021-01-07 12:00] VITALS: BP 110/75
[2021-01-07] MEDS: SKINTEGRITY HYDROGEL TP SCH (12:09)
--- NOTE | 2021-01-07 12:20 | NUR ---
STABLE GOOD CHEST RISE DEEP TRACHEAL SUCTION FOR COPIOUS THIN GREEN SECRETIONS AIRWAY PATENT NO EVIDENCE OF PEAK PRESSURE GREATER THAN [id number] CHANGED MODE FROM PRESSURE CONTROL TO PRESSURE REGULATED VOLUME CONTROL AISYA/RN NOTIFIED OF VENTILATOR CHANGE ALONG WITH CURENT SETTINGS NOTED
--- NOTE | 2021-01-07 13:00 | NUR ---
PT IS IN THE BED NO SOB NOTED. FAMILY MEMBER IS PRESENT AT THE BED SIDE
--- NOTE | 2021-01-07 14:06 | NUR ---
RESTING COMFORTABLY NO DISTRESS NOTED GOOD CHESTRISE AIRWAY PATENT
[2021-01-07] MEDS: CHLORHEXADINE GLUC 2% CLOTH TP SCH (14:15)
[2021-01-07] MEDS: MUPIROCIN CA NASAL 2% 1GM TUBE NS SCH (14:15)
[2021-01-07 16:44] VITALS: BP 112/70
--- NOTE | 2021-01-07 17:32 | NUR ---
TOOK PT TO THE RADIOLOGY FOR CT SCAN. RT WAS VICE PRESIDENT SAFETY WAS PRESENT AT THE BED SIDE ON TIME OF TRANSFER. PT TOLERATED THE PROCEDURE WELL.
[2021-01-07 20:00] VITALS: BP 101/72
--- NOTE | 2021-01-07 20:00 | NUR ---
RECEIVED BEDSIDE REPORT FROM DAY RN FOR CONTINUITY OF CARE. PATIENT ALERT, AWAKE ABLE TO NOD AND SHAKES HEAD WITH SIMPLE QUESTIONS. NO SIGN AND SYMPTOMS OF DISTRESS NOTED AT THIS TIME. PATIENT ON TRACH TO VENT SETTING WITH FIO2-32%, VT- 500, RR-16, PEEP-5, SATING 96%. FALL PRECAUTION AND ISOLATION PRECAUTION IMPLEMENTED. VSS, AFEBRILE, SATING 96% ON TRACH TO VENT. CALL LIGHT WITHIN REACH. WILL CONTINUE POC AND MONITORING.
[2021-01-07] MEDS: SIMVASTATIN 20 MG TAB GT SCH (21:14)
--- NOTE | 2021-01-07 22:00 | NUR ---
DUE MEDICATIONS GIVEN ORDERED AND PT TOLERATED IT WELL. NO ADVERSE DRUG REACTION NOTED. WILL CONTINUE TO OBSERVE THE PATIENT.
[2021-01-08] VITALS (7 sets, daily range): BP systolic 97–129; BP diastolic 68–83
--- NOTE | 2021-01-08 02:13 | NUR ---
PATIENT ASLEEP AT THIS TIME. VISIBLE CHEST RISE AND FALL NOTED. SAFETY MEASURES IN PLACE.
[2021-01-08] MEDS: PIPERACILLIN/TAZOBACTAM 3.375 GM in DEXTROSE 5% 50 ML IV SCH ×3 (04:55→22:26)
[2021-01-08] MEDS: metroNIDAZOLE 500 MG TAB GT SCH ×3 (05:06→17:04)
[2021-01-08] MEDS: POTASSIUM CHL 40 MEQ/ D5-1/2NS 1,000 ML IV SCH (05:26)
--- NOTE | 2021-01-08 06:22 | NUR ---
NO ACUTE EVENT THROUGHOUT THE NIGHT. NOT IN ANY DISTRESS AND NO COMPLAIN AT THIS TIME. ALL NEEDS ATTENDED. CALL LIGHT WITHIN REACH WILL ENDORSE THE PT TO THE ONCOMING RN FOR CONTINUITY OF CARE.
--- NOTE | 2021-01-08 07:24 | NUR ---
ENDORSED PATIENT TO DAY RN FOR CONTINUITY OF CARE. PATIENT STABLE. SIGNING OFF.
--- NOTE | 2021-01-08 07:40 | NUR ---
REPORT RECEIVED FROM NIGHT NURSE, PT IS SLEEPING IN THE BED, TRACH TO VENT PT. ALERT ORIENTED X 1. NO S/S OF PAIN NOTED. PT HAS G TUBE FEEDING RUNNING AT 70 ML/HR. IV ACCESS ON RIGHT FOOT. GARCIA CATHETER IS IN PLACED. POC DISCUSSED WILL CONTINUE TO FOLLOW IT.
[2021-01-08] MEDS: VANCOMYCIN HCL 1.25 GM in DEXTROSE 5% 250 ML IV SCH ×3 (09:00→23:07)
[2021-01-08] MEDS: ASCORBIC ACID 500 MG/5 ML ORASYR GT SCH ×2 (09:39→22:23)
[2021-01-08] MEDS: levETIRAcetam 100 MG/ML ORASYR GT SCH ×2 (09:39→22:21)
[2021-01-08] MEDS: SUCRALFATE 1 GM TAB GT SCH ×2 (09:40→22:16)
[2021-01-08] MEDS: POTASSIUM CHLORIDE 20% 40 MEQ/15 ML UDC GT SCH (09:40)
[2021-01-08] MEDS: ASPIRIN 81 MG TAB.CHEW GT SCH (09:41)
[2021-01-08] MEDS: METOPROLOL 25 MG TAB GT SCH ×2 (09:41→22:21)
[2021-01-08] MEDS: FAMOTIDINE 20 MG TAB GT SCH ×2 (09:41→22:22)
[2021-01-08] MEDS: DOXAZOSIN 2 MG TAB GT SCH ×2 (09:42→22:19)
[2021-01-08] MEDS: APIXABAN 2.5 MG TAB GT SCH ×2 (09:43→22:20)
[2021-01-08] MEDS: LACOSAMIDE 200 MG/20 ML GT SCH ×2 (09:44→21:00)
--- NOTE | 2021-01-08 09:47 | NUR ---
ADMINISTERED ALL PRESCRIBED MEDICATIONS EXCEPT FOR VANCOMYCIN TROUGH HASN'T DRAWN, COMMUNICATED WITH PHARMACIST. WILL SENT NEXT DOSE AFTER TROUGH IS CLEARED. WILL ADMINISTER WHEN TRAUGH RESULTS ARE AVAILABLE AND MEDICATION AVAILABLE.
[2021-01-08 10:06] LABS: BASOPHILS % (AUTO) 0.3 % (0.0-2.0); EOSINOPHILS # (AUTO) 0.1 K/uL (0-0.4); EOSINOPHILS % (AUTO) 0.9 % (0.0-4.0); HEMATOCRIT 26.6 % (36-52); HEMOGLOBIN 8.1 g/dL (12.0-18.0); LYMPHOCYTES # (AUTO) 0.9 K/uL (2.0-11.5); LYMPHOCYTES % (AUTO) 6.6 % (20.5-51.1); MEAN CORPUSCULAR HEMOGLOBIN 21 pg (27-31); MEAN CORPUSCULAR HGB CONC 31 g/dL (33-37); MEAN CORPUSCULAR VOLUME 68.8 fL (80-94); MONOCYTES # (AUTO) 0.9 K/uL (0.8-1.0); MONOCYTES % (AUTO) 6.6 % (1.7-9.3); NEUTROPHILS # (AUTO) 11.1 K/uL (1.8-7.7); NEUTROPHILS % (AUTO) 85.6 % (42.2-75.2); PLATELET COUNT (AUTO) 338 K/uL (140-450); RED BLOOD CELL COUNT(AUTO) 3.87 MIL/uL (4.20-6.10); RED CELL DISTRIBUTION WIDTH 19.2 % (11.6-13.7)
[2021-01-08 10:29] LABS: ANION GAP 10.8 (8-16); CARBON DIOXIDE 28.1 mmol/L (21-32); CREATININE 0.7 mg/dL (0.6-1.3)
[2021-01-08 10:31] LABS: POTASSIUM 2.9 mmol/L (3.5-5.1)
--- NOTE | 2021-01-08 10:38 | NUR ---
RECEIVED CRITICAL LAB RESULT POTASSIUM 2.9 CA 8.4, NOTIFIED MD AWAITING FOR ORDERS, NO PRN ORDER AVAILABLE AT THE MOMENT.
--- NOTE | 2021-01-08 11:00 | NUR ---
RECHECKED THE RESIDUAL THERE WAS 20 ML OF RESIDUAL.
--- NOTE | 2021-01-08 12:05 | NUR ---
RECEIVED VANCOMYCIN TROUGH 18.9 ADMINISTERED VANCOMYCIN AND SCHEDULE MEDICATIONS.
[2021-01-08] MEDS ORDERED: KCL 20 MEQ/WATER INJ PREMIX 200 ML IV PRN (12:40)
[2021-01-08] MEDS: SKINTEGRITY HYDROGEL TP SCH (13:39)
[2021-01-08] MEDS ORDERED: POTASSIUM CHLORIDE 20% 40 MEQ/15 ML UDC GT SCH (14:00)
[2021-01-08] MEDS: CHLORHEXADINE GLUC 2% CLOTH TP SCH (14:04)
[2021-01-08] MEDS: MUPIROCIN CA NASAL 2% 1GM TUBE NS SCH (14:12)
--- NOTE | 2021-01-08 15:00 | NUR ---
PT IS SLEEPING, NO SOB NOTED, RT IS WITH THE PT, SUCTIONED THE PT AND CHANGE THE TUBING. PT TOLERATED WELL. WILL CONTINUE TO MONITOR THE PT.
--- NOTE | 2021-01-08 19:23 | NUR ---
ENDORSED THE NIGHT NURSE CONTINUITY OF CARE PT IS STABLE
--- NOTE | 2021-01-08 19:25 | NUR ---
RECEIVED REPORT FROM MICH CANO FOR CONTINUITY OF CARE. PT AROUSABLE TO VERBAL/TACTILE STIMULI. NO APPARENT S/S OF ACUTE DISTRESS. BREATHING EVEN AND UNLABORED ON TRACH TO VENT WITH O2 SAT OF 98%. NO C/O CP, SOB OR PAIN. R FOOT 20G, INTACT/PATENT. G-TUBE INTACT/PATENT WITH VITAL AF 1.2 @70ML/HR. GARCIA CATH INTACT/PATENT WITH DARK YELLOW URINE DRAINING TO GRAVITY. POC AND WHITE COMMUNICATION BOARD UPDATED. BED IN LOW/LOCKED POSITION. CALL LIGHT WITHIN REACH. WILL CONTINUE TO MONITOR.
[2021-01-08] MEDS: SIMVASTATIN 20 MG TAB GT SCH (22:23)
[2021-01-09] VITALS (7 sets, daily range): BP systolic 109–146; BP diastolic 69–89
[2021-01-09] MEDS: metroNIDAZOLE 500 MG TAB GT SCH ×2 (00:35→05:51)
[2021-01-09] MEDS: POTASSIUM CHL 40 MEQ/ D5-1/2NS 1,000 ML IV SCH ×2 (03:25→09:53)
[2021-01-09 05:34] LABS: BASOPHILS # (AUTO) 0.1 K/uL (0.00-0.22); BASOPHILS % (AUTO) 0.4 % (0.0-2.0); EOSINOPHILS # (AUTO) 0.2 K/uL (0-0.4); EOSINOPHILS % (AUTO) 1.5 % (0.0-4.0); HEMATOCRIT 25.1 % (36-52); HEMOGLOBIN 7.7 g/dL (12.0-18.0); MEAN CORPUSCULAR HEMOGLOBIN 21 pg (27-31); MEAN CORPUSCULAR HGB CONC 31 g/dL (33-37); MEAN CORPUSCULAR VOLUME 68.8 fL (80-94); MONOCYTES # (AUTO) 0.9 K/uL (0.8-1.0); MONOCYTES % (AUTO) 7.3 % (1.7-9.3); NEUTROPHILS # (AUTO) 10.5 K/uL (1.8-7.7); NEUTROPHILS % (AUTO) 82.8 % (42.2-75.2); PLATELET COUNT (AUTO) 344 K/uL (140-450); RED BLOOD CELL COUNT(AUTO) 3.65 MIL/uL (4.20-6.10); RED CELL DISTRIBUTION WIDTH 19.3 % (11.6-13.7); WHITE BLOOD COUNT (AUTO) 12.7 K/uL (4.8-10.8)
[2021-01-09 06:14] LABS: ANION GAP 11.9 (8-16); CARBON DIOXIDE 29.2 mmol/L (21-32); CREATININE 0.7 mg/dL (0.6-1.3); POTASSIUM 3.1 mmol/L (3.5-5.1)
--- NOTE | 2021-01-09 07:05 | NUR ---
REPORT GIVEN TO JAISON CANO FOR CONTINUITY OF CARE. NO APPARENT S/S OF ACUTE DISTRESS. BREATHING EVEN AND UNLABORED. BED IN LOW/LOCKED POSITION. CALL LIGHT WITHIN REACH. ALL NEEDS MET AT THIS TIME.
--- NOTE | 2021-01-09 07:05 | NUR ---
RECEIVED CHANGE OF SHIFT REPORT FROM NIGHT NURSE AT BEDSIDE FOR CONTINUITY OF CARE. REVIEWED AND WILL CONTINUE WITH POC. PT CONDITION IS STABLE. PT ASLEEP DURING REPORT. WHEN AWAKE PT IS AA&OX1 TO SELF. PT IS BEDBOUND. PT IS ON TRACH TO VENT WITH FIO2: 25, PEEP: 5, VT: 500, AND RT: 16 WITH NORMAL, UNLABORED BREATHING. PT HAS GARCIA IN PLACE DRAINING NORMALLY. PT HAS R-FOOT 20 G RUNNING IVF PER MD ORDER. PT IS ON TELE MONITOR. PT HAS SACRAL-COCCYX WOUND COVERED BY DRESSING. DRESSING IS CLEAN AND INTACT. PT IS ON GT FEED RUNNING VITAL 1.2 @ 70 ML/HR WITH 150 WATER FLUSH EVERY 6 HR. WILL CONTINUE TO MONITOR.
--- NOTE | 2021-01-09 07:45 | NUR ---
RECEIVED ON A VIASYS LOPEZ VENTILATOR PLUGGED INTO RED OUTLET TOLERATING WELL WITHOUT ADVERSE REACTIONS NOTED TO A PORTEX DFEN #7 AIRWAY SECURED WITH A PABLITO TRACH TIE CUFF PRESSURE CHECKED NOTED AMBU BAG NOTED AT BEDSIDE LOC AWAKE STABLE EQUAL CHEST RISE DEEP TRACHEAL FOR LARGE SEMI THICK GREEN SECRETIONS OROPHARYNX SUCTION FOR MODERATE SEMI THICK TO THIN GREEN SECRETIONS AIRWAY PATENT
[2021-01-09] MEDS: VANCOMYCIN HCL 1.25 GM in DEXTROSE 5% 250 ML IV SCH ×2 (09:00→20:48)
[2021-01-09] MEDS: SUCRALFATE 1 GM TAB GT SCH ×2 (09:19→20:20)
[2021-01-09] MEDS: ASPIRIN 81 MG TAB.CHEW GT SCH (09:20)
[2021-01-09] MEDS: METOPROLOL 25 MG TAB GT SCH ×2 (09:20→20:24)
[2021-01-09] MEDS: FAMOTIDINE 20 MG TAB GT SCH ×2 (09:20→20:26)
[2021-01-09] MEDS: DOXAZOSIN 2 MG TAB GT SCH ×2 (09:21→20:22)
[2021-01-09] MEDS: ASCORBIC ACID 500 MG/5 ML ORASYR GT SCH ×2 (09:22→20:24)
[2021-01-09] MEDS: levETIRAcetam 100 MG/ML ORASYR GT SCH ×2 (09:22→20:32)
[2021-01-09] MEDS: POTASSIUM CHLORIDE 20% 40 MEQ/15 ML UDC GT SCH (09:23)
[2021-01-09] MEDS: APIXABAN 2.5 MG TAB GT SCH ×2 (09:24→20:31)
[2021-01-09] MEDS: LACOSAMIDE 200 MG/20 ML GT SCH ×2 (09:31→20:33)
[2021-01-09] MEDS ORDERED: POTASSIUM CHL IV ONE (09:48)
[2021-01-09] MEDS ORDERED: D5 IV ONE (09:48)
[2021-01-09] MEDS ORDERED: [UNRECOGNIZED DRUG - OTHER] IV ONE (09:48)
--- NOTE | 2021-01-09 09:52 | NUR ---
VANCO PARAMETER WAS LOST BY PHARMACY. AWAITING CALL FROM MD FOR ORDERS.
--- NOTE | 2021-01-09 10:15 | NUR ---
WOUND CARE RE-EVALUATION NOTE: SACRALCOCCYX WOUND HAS RESPONDING TO HYDROGEL, WOUND BED RESURFACING, WILL CONTINUE SAME TX. -SACRALCOCCYX PRESSURE INJURY STAGE 4, 6X4X0.1CM 100% RED GRANULATING TISSUE WOUND EDGE FLAT, NO ODOR, SMALL AMOUNT SANGUINOUS DRAINAGE, BRIAN-WOUND SKIN HEALED SCAR MOIST. -BILATERAL HEELS BLANCHABLE REDNESS INTACT SKIN
--- NOTE | 2021-01-09 10:30 | NUR ---
NO DISTRESS NOTED GOOD CHEST RISE DEEP TRACHEAL SUCTION FOR LARGE THIN PALE GREEN SECRETIONS AIRWAY PATENT
--- NOTE | 2021-01-09 11:32 | NUR ---
PT CONDITION IS STABLE. PT TELE LEADS FELL OFF, REPLACED LEADS. PT CONDITION IS STABLE. WILL CONTINUE TO MONITOR PT CONDITION.
[2021-01-09] MEDS: SKINTEGRITY HYDROGEL TP SCH (13:11)
--- NOTE | 2021-01-09 13:15 | NUR ---
PT CONDITION IS STABLE. PT IS ON TRACH TO VENT BREATHING NORMAL AND UNLABORED. RUNNING GT FEED AND IVF PER MD ORDER. PT DOES NOT APPEAR TO BE IN PAIN OR DISTRESS. WILL CONTINUE TO MONITOR.
--- NOTE | 2021-01-09 14:12 | NUR ---
NO DISTRESS NOTED EQUAL CHEST RISE GOOD AERATION THROUGHOUT BILATERAL LUNG PARISH AIRWAY PATENT
--- NOTE | 2021-01-09 15:37 | NUR ---
PT CONDITION IS STABLE. SAFETY PRECAUTIONS IN PLACE. DOES NOT APPEAR TO BE IN PAIN OR DISTRESS. WILL CONTINUE WITH FREQ ROUNDING.
[2021-01-09] MEDS ORDERED: VANCOMYCIN PER PHARMACY MC PRN (15:55)
--- NOTE | 2021-01-09 17:26 | NUR ---
PT CONDITION IS STABLE. SAFETY PRECAUTIONS IN PLACE. DOES NOT APPEAR TO BE IN PAIN OR DISTRESS.
--- NOTE | 2021-01-09 19:15 | NUR ---
RECEIVED REPORT FROM JAISON CANO FOR CONTINUITY OF CARE. PT SITTING UP NONVERBAL, AROUSABLE TO VERBAL/TACTILE STIMULI. NO APPARENT S/S OF ACUTE DISTRESS. BREATHING EVEN AND UNLABORED ON TRACH TO VENT WITH O2 SAT OF 98%. R FOOT 20G INTACT/PATENT WITH D5 1/2NS+40MEQ KCL@50ML/HR. G-TUBE INTACT/PATENT WITH VITAL AF 1.2@70ML/HR. GARCIA CATH INTACT/PATENT WITH YELLOW URINE DRAINING TO GRAVITY. POC AND WHITE COMMUNICATION BOARD UPDATED. BED IN LOW/LOCKED POSITION. CALL LIGHT WITHIN REACH. PT ENCOURAGED TO CALL FOR ANY NEEDS/ASSISTANCE. WILL CONTINUE TO MONITOR.
--- NOTE | 2021-01-09 19:20 | NUR ---
GAVE CHANGE OF SHIFT REPORT TO NIGHT NURSE AT BEDSIDE FOR CONTINUITY OF CARE. PT IS STABLE, SAFETY PRECAUTIONS IN PLACE. DISCUSSED POC.
[2021-01-09] MEDS: SIMVASTATIN 20 MG TAB GT SCH (20:23)
[2021-01-10] VITALS (8 sets, daily range): BP systolic 121–146; BP diastolic 69–89
[2021-01-10 06:09] LABS: BASOPHILS % (AUTO) 0.2 % (0.0-2.0); EOSINOPHILS # (AUTO) 0.1 K/uL (0-0.4); EOSINOPHILS % (AUTO) 0.9 % (0.0-4.0); HEMATOCRIT 25.1 % (36-52); HEMOGLOBIN 7.8 g/dL (12.0-18.0); LYMPHOCYTES % (AUTO) 8.1 % (20.5-51.1); MEAN CORPUSCULAR HEMOGLOBIN 21 pg (27-31); MEAN CORPUSCULAR HGB CONC 31 g/dL (33-37); MEAN CORPUSCULAR VOLUME 68.5 fL (80-94); MONOCYTES # (AUTO) 0.8 K/uL (0.8-1.0); MONOCYTES % (AUTO) 6.5 % (1.7-9.3); NEUTROPHILS # (AUTO) 10.1 K/uL (1.8-7.7); NEUTROPHILS % (AUTO) 84.3 % (42.2-75.2); PLATELET COUNT (AUTO) 330 K/uL (140-450); RED BLOOD CELL COUNT(AUTO) 3.67 MIL/uL (4.20-6.10); RED CELL DISTRIBUTION WIDTH 19.5 % (11.6-13.7)
--- NOTE | 2021-01-10 07:21 | NUR ---
REPORT GIVEN TO YANCY CANO FOR CONTINUITY OF CARE. NO APPARENT S/S OF ACUTE DISTRESS. BREATHING EVEN AND UNLABORED. BED IN LOW/LOCKED POSITION. CALL LIGHT WITHIN REACH. ALL NEEDS MET AT THIS TIME.
--- NOTE | 2021-01-10 07:28 | NUR ---
RECEIVED REPORT FROM ENCODING MACHINE OPERATOR NURSE FOR CONTINUITY OF CARE, POC DISCUSSED. PT IS RESTING IN BED WITH EYES SHUT, TRACH TO VENT SATING AT 94%. PT IS ST ON TELE MONITOR SHOWING 116. PT IS RECEIVING GTUBE FEEDING AT VITAL AF @70 AND Q6 FREE FLUSHES AT 250. PT HAS A RIGHT FOOT 20 G RUNNING D5/0.45NS W/ 40 MEQ AT 50ML. PT HAS A SACRAL WOUND. ALL SAFETY MEASURES IN PLACE, CONTACT PRECAUTIONS FOR CDIFF. WILL CONTINUE TO MONITOR.
--- NOTE | 2021-01-10 08:43 | NUR ---
RECEIVED ON A VIASYS LOPEZ VENTILATOR PLUGGED INTO RED OUTLET TOLERATING WELL WITHOUT ADVERSE REACTIONS NOTED TO A JOSE EDUARDO DCT #8 AIRWAY SECURED WITH A PABLITO TRACH TIE CUFF PRESSURE CHECKED NOTED AMBU BAG NOTED AT BEDSIDE RESTING COMFORTABLY EQUAK CHEST RISE DEEP TRACHEAL SUCTION FOR LARGE THIN PALE GREEN SECRETIONS AIRWAY PATENT
[2021-01-10 09:01] LABS: ANION GAP 10.3 (8-16); CREATININE 0.7 mg/dL (0.6-1.3); POTASSIUM 3.3 mmol/L (3.5-5.1)
[2021-01-10] MEDS: LACOSAMIDE 200 MG/20 ML GT SCH ×2 (09:10→21:18)
[2021-01-10] MEDS: levETIRAcetam 100 MG/ML ORASYR GT SCH ×2 (09:11→21:15)
[2021-01-10] MEDS: POTASSIUM CHLORIDE 20% 40 MEQ/15 ML UDC GT SCH (09:11)
[2021-01-10] MEDS: SUCRALFATE 1 GM TAB GT SCH ×2 (09:12→21:16)
[2021-01-10] MEDS: ASCORBIC ACID 500 MG/5 ML ORASYR GT SCH ×2 (09:12→21:15)
[2021-01-10] MEDS: ASPIRIN 81 MG TAB.CHEW GT SCH (09:13)
[2021-01-10] MEDS: APIXABAN 2.5 MG TAB GT SCH ×2 (09:13→21:20)
[2021-01-10] MEDS: DOXAZOSIN 2 MG TAB GT SCH ×2 (09:14→21:18)
[2021-01-10] MEDS: FAMOTIDINE 20 MG TAB GT SCH ×2 (09:15→21:16)
[2021-01-10] MEDS: METOPROLOL 25 MG TAB GT SCH ×2 (09:15→21:16)
[2021-01-10] MEDS: VANCOMYCIN HCL 1.25 GM in DEXTROSE 5% 250 ML IV SCH (09:16)
[2021-01-10] MEDS: KCL 20 MEQ/WATER INJ PREMIX 200 ML IV SCH ×2 (09:18→11:23)
--- NOTE | 2021-01-10 09:34 | NUR ---
ELISHA MEDICATION ADMINISTERED PER MD ORDER, PT TOLERATED ADMINISTRATION. NO RESIDUAL NOTED, FLUSHED WITH 10 CC PRIOR TO AND AFTER ADMINISTRATION. ALL SAFETY MEASURES IN PLACE, CALL LIGHT WITHIN REACH. WILL CONTINUE TO MONITOR.
[2021-01-10] MEDS: SULFAMETH/TRIMETH DS 800/160MG 1 TAB PEG SCH ×2 (10:57→21:17)
--- NOTE | 2021-01-10 11:01 | NUR ---
ELISHA MEDICATION ADMINISTERED PER MD ORDER, PT TOLERATED ADMINISTRATION. 5ML RESIDUAL, FLUSHED WITH 10 CC PRIOR TO AND AFTER MEDICATION ADMINISTRATION. PT SATING AT 98%. ALL SAFETY MEASURES IN PLACE, CALL LIGHT WITHIN REACH. WILL CONTINUE TO MONITOR.
[2021-01-10] MEDS ORDERED: ALBUTEROL SULFATE/IPRATROPIU 3 ML SOL IH PRN (11:30)
[2021-01-10] MEDS: ACETAMINOPHEN 325 MG TAB PO PRN (11:30)
--- NOTE | 2021-01-10 11:30 | NUR ---
PRN TYLENOL ADMINISTERED FOR FEVER OF 101.2. PT TOLERATED ADMINISTRATION. 5ML RESIDUAL PRIOR TO, AND 10 CC FLUSHED PRIOR TO AND AFTER ADMINISTRATION. ALL SAFETY MEASURES IN PLACE, WILL CONTINUE TO MONITOR.
--- NOTE | 2021-01-10 11:48 | NUR ---
RESTING WELL GOOD CHEST RISE AND AERATION THROUGHOUT BILATERAL LUNG PARISH AIRWAY PATENT
--- NOTE | 2021-01-10 12:12 | NUR ---
PT HAS BEEN CLEANED AND REPOSITIONED. DRESSING CHANGE COMPLETE. ALL SAFETY MEASURES IN PLACE, CALL LIGHT WITHIN REACH. WILL CONTINUE TO MONITOR.
[2021-01-10] MEDS: SKINTEGRITY HYDROGEL TP SCH (12:59)
[2021-01-10] MEDS: PIPERACILLIN/TAZOBACTAM 3.375 GM in DEXTROSE 5% 50 ML IV SCH ×2 (13:08→21:23)
--- NOTE | 2021-01-10 13:08 | NUR ---
ELISHA MEDICATION ADMINISTERED PER MD ORDER, PT TOLERATED ADMINISTRATION. IV IS PATENT AND INTACT. ALL SAFETY MEASURES IN PLACE, CALL LIGHT WITHIN REACH. WILL CONTINUE TO MONITOR.
[2021-01-10] MEDS: ALBUTEROL SULFATE/IPRATROPIU 3 ML SOL IH SCH ×2 (14:28→21:03)
--- NOTE | 2021-01-10 14:28 | NUR ---
INCREASED WOB AT +27 BPM GOOD CHEST RISE DEEP TRACHEAL SUCTION FOR COPIOUS THIN PALE GREEN SECRETIONS AIRWAY PATENT
--- NOTE | 2021-01-10 15:05 | NUR ---
01/10/21 RD FOLLOW UP COMPLETED PLEASE REFER TO NUTRITION ASSESSMENT UNDER CARE ACTIVITY FOR ESTIMATED NUTRITIONAL NEEDS. 1. CONTINUE VITAL AF 1.2 AT GOAL RATE OF 70 ML/HR - THIS WILL PROVIDE 2016 KCAL/DAY AND 126 GM OF PROTEIN/DAY, MEETING 100% OF ESTIMATED KCAL AND PROTEIN NEEDS 2. RECOMMEND FREE WATER FLUSH OF 185 ML Q6H . 3. CONTINUE VITAMIN C TO PROMOTE WOUND HEALING. 4. RD WILL F/U 2-3 DAYS; HIGH RISK ALYCE PLUMMER RD
--- NOTE | 2021-01-10 15:22 | NUR ---
NEW GTUBE FEEDING STARTED; 10ML RESIDUAL. PT IS SATING AT 96%, NO ACUTE S/S OF DISTRESS. ALL SAFETY MEASURES IN PLACE. WILL CONTINUE TO MONITOR.
--- NOTE | 2021-01-10 15:54 | NUR ---
PT HAS BEEN CHANGED AND REPOSITIONED. 1BM NOTED. PT IV INTACT AND RUNNING POTASSIUM AT 40 ML. PT IS STABLE WITH NO ACUTE S/S OF DISTRESS OR SOB, SATING AT 96%. ALL SAFETY MEASURES IN PLACE, WILL CONTINUE TO MONITOR.
--- NOTE | 2021-01-10 17:28 | NUR ---
PT HAS BEEN STABLE WITH NO ACUTE S/S PF DISTRESS, ALL SAFETY MEASURES IN PLACE, WILL CONTINUE TO MONITOR.
--- NOTE | 2021-01-10 19:33 | NUR ---
PT ENDORSED TO CORN CHIP MAKER NURSE IN STABLE CONDITION. POC DISCUSSED
--- NOTE | 2021-01-10 19:34 | NUR ---
RECEIVED BEDSIDE ENDORSEMENT FROM AM SHIFT RN. PT HAS A GARCIA CATHETER IN PLACE, HAS RIGHT WRIST 22G, , TUBE FEEDING VITAL 1.2 GOMEZ RUNNING 70ML/HR, 250 FREE WATER FLUSH, PT IS APHASIC, ALERT AND ORIENTATED, TRACH TO VENT FIO2 25%, PEEP 5, TV 500, SKIN IS INTACT ANTERIORLY, SACRAL WOUND POSTERIORLY, BED-BOUND, CALL LIGHT WITHIN REACH, SAFETY MEASURES IN PLACE, PT STABLE AT THIS MOMENT.
[2021-01-10] MEDS: POTASSIUM CHL 40 MEQ/ D5-1/2NS 1,000 ML IV SCH (19:59)
--- NOTE | 2021-01-10 21:00 | NUR ---
ASKED PT IF HE WANTED ORAL CARE PERFORMED, AND HE DECLINED.
[2021-01-10] MEDS: SIMVASTATIN 20 MG TAB GT SCH (21:15)
--- NOTE | 2021-01-10 21:39 | NUR ---
ADMINISTERED SCHEDULED MEDS, TOLERATED WELL, G-TUBE IS PATENT, PT IN STABLE CONDITION, WILL CONTINUE TO MONITOR.
[2021-01-11] VITALS (8 sets, daily range): BP systolic 114–159; BP diastolic 60–97
[2021-01-11] MEDS: ALBUTEROL SULFATE/IPRATROPIU 3 ML SOL IH SCH ×5 (00:42→19:32)
--- NOTE | 2021-01-11 01:06 | NUR ---
PT IS ASLEEP, NO SIGNS OF DISTRESS, KEPT COMFORTABLE, SAFETY MEASURES IN PLACE, PT STABLE AT THIS MOMENT/
--- NOTE | 2021-01-11 02:39 | NUR ---
PT IS ASLEEP, NO SIGNS OF DISTRESS, KEPT COMFORTABLE, PT STABLE AT THE MOMENT
[2021-01-11] MEDS: PIPERACILLIN/TAZOBACTAM 3.375 GM in DEXTROSE 5% 50 ML IV SCH ×3 (04:55→22:13)
--- NOTE | 2021-01-11 05:44 | NUR ---
REPOSITIONED AND CHANGED PTS DIAPER. PT HAS LEFT HIP REDNESS, ASSESSED SACRAL WOUND, LENGTH 5.0CM WIDTH 4.5 MODERATE SEROSANGUINEOUS, CLEANED PTS WOUND APPLIED HYDROGEL ON SILICONE BANDAGE, CHANGED PTS SUCTION CANISTER, PROVIDED SUCTIONING AND ORAL CARE.
[2021-01-11 06:16] LABS: BASOPHILS % (AUTO) 0.3 % (0.0-2.0); EOSINOPHILS # (AUTO) 0.1 K/uL (0-0.4); EOSINOPHILS % (AUTO) 0.9 % (0.0-4.0); HEMATOCRIT 25.9 % (36-52); HEMOGLOBIN 7.9 g/dL (12.0-18.0); LYMPHOCYTES # (AUTO) 1.1 K/uL (2.0-11.5); LYMPHOCYTES % (AUTO) 10.5 % (20.5-51.1); MEAN CORPUSCULAR HEMOGLOBIN 21 pg (27-31); MEAN CORPUSCULAR HGB CONC 31 g/dL (33-37); MEAN CORPUSCULAR VOLUME 69.8 fL (80-94); MONOCYTES # (AUTO) 0.8 K/uL (0.8-1.0); MONOCYTES % (AUTO) 7.9 % (1.7-9.3); NEUTROPHILS # (AUTO) 8.6 K/uL (1.8-7.7); NEUTROPHILS % (AUTO) 80.4 % (42.2-75.2); PLATELET COUNT (AUTO) 346 K/uL (140-450); RED BLOOD CELL COUNT(AUTO) 3.71 MIL/uL (4.20-6.10); RED CELL DISTRIBUTION WIDTH 20.8 % (11.6-13.7); WHITE BLOOD COUNT (AUTO) 10.6 K/uL (4.8-10.8)
[2021-01-11 06:57] LABS: ALBUMIN 1.8 g/dL (3.4-5.0); ANION GAP 10.9 (8-16); CARBON DIOXIDE 27.5 mmol/L (21-32); CREATININE 0.7 mg/dL (0.6-1.3); PHOSPHORUS 2.7 mg/dL (2.5-4.9); POTASSIUM 3.4 mmol/L (3.5-5.1); TOTAL BILIRUBIN 0.2 mg/dL (0.0-1.0)
--- NOTE | 2021-01-11 07:21 | NUR ---
PT WAS ENDORSED FROM ARABIC PROFESSOR NURSE FOR CONTINUITY OF CARE, POC DISCUSSED. PT IS STABLE IN BED WITH CHEST RISING AND FALLING EVEN AND UNLABORED WITH O2 SAT AT 96%. PT HAS A SACRAL WOUND AND RIGHT HIP. PT ON TELEMONITOR SHOWING ST IN THE 119. PT IS APHASIC BUT ABLE TO NOD TO QUESTIONS. RESPIRATORY THERAPY AT BEDSIDE. PT HAS A RIGHT WRIST 22G RUNNING D5NS WITH 40 MEQ AT 50 ML. PT IS RECEIVING VITAL AF 1.2 AT 70 ML PER HR. ALL SAFETY MEASURES IN PLACE, WILL CONTINUE TO MONITOR.
--- NOTE | 2021-01-11 07:38 | NUR ---
PASSED ON BEDSIDE ENDORSEMENT TO AM SHIFT RN. ALL INTERVENTIONS PERFORMED, PT IS STABLE.
--- NOTE | 2021-01-11 09:37 | NUR ---
ELISHA MEDICATION ADMINISTERED PER MD ORDER, PT TOLERATED ADMINISTRATION. 15 ML RESIDUAL PRIOR TO ADMINISTRATION, FLUSHED WITH 10 CC PRIOR TO AND AFTER ADMINISTRATION. IV IS CLEAN DRY AND PATENT. ALL SAFETY MEASURES IN PLACE, WILL CONTINUE TO MONITOR.
[2021-01-11] MEDS: levETIRAcetam 100 MG/ML ORASYR GT SCH ×2 (09:40→21:00)
[2021-01-11] MEDS: SUCRALFATE 1 GM TAB GT SCH ×2 (09:41→22:13)
[2021-01-11] MEDS: POTASSIUM CHLORIDE 20% 40 MEQ/15 ML UDC GT SCH (09:41)
[2021-01-11] MEDS: ASCORBIC ACID 500 MG/5 ML ORASYR GT SCH ×2 (09:41→21:00)
[2021-01-11] MEDS: METOPROLOL 25 MG TAB GT SCH ×2 (09:41→22:14)
[2021-01-11] MEDS: ASPIRIN 81 MG TAB.CHEW GT SCH (09:42)
[2021-01-11] MEDS: DOXAZOSIN 2 MG TAB GT SCH ×2 (09:42→21:00)
[2021-01-11] MEDS: SULFAMETH/TRIMETH DS 800/160MG 1 TAB PEG SCH ×2 (09:42→21:00)
[2021-01-11] MEDS: APIXABAN 2.5 MG TAB GT SCH ×2 (09:42→22:17)
[2021-01-11] MEDS: FAMOTIDINE 20 MG TAB GT SCH ×2 (09:42→22:13)
[2021-01-11] MEDS: LACOSAMIDE 200 MG/20 ML GT SCH ×2 (09:49→21:00)
[2021-01-11] MEDS ORDERED: NACL 0.9% 500 ML IV SCH (10:45)
--- NOTE | 2021-01-11 10:58 | NUR ---
PT IS STABLE IN BED WITH NO ACUTE S/S OF SOB, O2 SATURATIONS 98%. ALL SAFETY MEASURES IN PLACE, WILL CONTINUE TO MONITOR.
[2021-01-11] MEDS ORDERED: POTASSIUM CHLORIDE 20% 40 MEQ/15 ML UDC PO SCH (11:00)
--- NOTE | 2021-01-11 12:05 | NUR ---
ELISHA MEDICATION ADMINISTERED PER MD ORDER. PT TOLERATED ADMINISTRATION. RESIDUAL 45 ML, FLUSHED WITH 10 CC PRIOR TO AND AFTER ADMINISTRATION. WILL CONTINUE TO MONITOR RESIDUAL. ALL SAFETY MEASURES IN PLACE, CALL LIGHT WITHIN REACH. WILL CONTINUE TO MONITOR.
--- NOTE | 2021-01-11 12:58 | NUR ---
ORAL CARE ADMINISTERED. PT STABLE WITH NO ACUTE S/S OF DISTRESS.
[2021-01-11] MEDS: SKINTEGRITY HYDROGEL TP SCH (13:03)
[2021-01-11] MEDS: POTASSIUM CHL 40 MEQ/ D5-1/2NS 1,000 ML IV SCH (14:49)
--- NOTE | 2021-01-11 14:49 | NUR ---
COOLING MEASURES IN PLACE, WILL CONTINUE TO MONITOR. NEW FLUIDS REPLENISHED.
--- NOTE | 2021-01-11 16:02 | NUR ---
PT HAS BEEN REPOSITIONED, NO BOWEL MOVEMENT NOTED AT THIS TIME. SUCTIONING COMPLETE. PT IS STABLE. IV FLUIDS REPLENISHED AND RESTARTED. ALL SAFETY MEASURES IN PLACE, WILL CONTINUE TO MONITOR.
--- NOTE | 2021-01-11 17:41 | NUR ---
PT HAS BEEN CHANGED, REPOSITIONED, CLEANED, DRESSING CHANGE PROVIDED, ORAL CARE AND SUCTIONING. PT HAS SCANT AMOUNT OF BOWEL MOVEMENT. PT IS STABLE AND REMAINED STABLE DURING CLEANING. ALL SAFETY MEASURES IN PLACE, WILL CONTINUE TO MONITOR.
[2021-01-11] MEDS ORDERED: SULF-954 PEG (17:58)
--- NOTE | 2021-01-11 18:07 | NUR ---
COOLING MEASURES APPLIED TO PT. PT IS STABLE WITH O2 SATURATIONS AT 94%.
--- NOTE | 2021-01-11 19:00 | NUR ---
PATIENT RECEIVED IN BED. CARE ENDORSEMENT FROM AM SHIFT RN. PT HAS A GARCIA CATHETER IN PLACE DRAINING ADEQUATE URINARY OUTPUT. HAS RIGHT WRIST 22G. CONTINUED GASTRO TUBE FEEDING VITAL 1.2 GOMEZ RUNNING 70ML/HR, 250 FREE WATER FLUSH. NO RESIDUAL NOTED. TOLERATED TUBE FEEDING WELL. PT IS APHASIC, ALERT AND ORIENTATED, TRACH TO VENT FIO2 25%, PEEP 5, TV 500, SKIN IS INTACT ANTERIORLY, SACRAL WOUND POSTERIORLY, BED-BOUND, CALL LIGHT WITHIN REACH, SAFETY MEASURES IN PLACE. FALL AND SAFETY INTERVENTIONAL MEASURES ONGOING. VSS. NO ACUTE DISTRESS NOTED.
--- NOTE | 2021-01-11 19:04 | NUR ---
PT WILL BE ENDORSED TO BARREL INSPECTOR NURSE IN STABLE CONDITION.
[2021-01-11] MEDS: SIMVASTATIN 20 MG TAB GT SCH (22:13)
[2021-01-12] VITALS: BP 124/78
[2021-01-12] MEDS: ALBUTEROL SULFATE/IPRATROPIU 3 ML SOL IH SCH ×3 (00:51→13:55)
[2021-01-12 04:00] VITALS: BP 130/80
[2021-01-12 05:50] LABS: BASOPHILS # (AUTO) 0.1 K/uL (0.00-0.22); BASOPHILS % (AUTO) 0.5 % (0.0-2.0); EOSINOPHILS # (AUTO) 0.1 K/uL (0-0.4); EOSINOPHILS % (AUTO) 0.5 % (0.0-4.0); HEMATOCRIT 26.1 % (36-52); HEMOGLOBIN 7.9 g/dL (12.0-18.0); LYMPHOCYTES % (AUTO) 7.9 % (20.5-51.1); MEAN CORPUSCULAR HEMOGLOBIN 21 pg (27-31); MEAN CORPUSCULAR HGB CONC 30 g/dL (33-37); MEAN CORPUSCULAR VOLUME 69.7 fL (80-94); MONOCYTES # (AUTO) 0.7 K/uL (0.8-1.0); MONOCYTES % (AUTO) 5.8 % (1.7-9.3); NEUTROPHILS # (AUTO) 10.7 K/uL (1.8-7.7); NEUTROPHILS % (AUTO) 85.3 % (42.2-75.2); PLATELET COUNT (AUTO) 330 K/uL (140-450); RED BLOOD CELL COUNT(AUTO) 3.75 MIL/uL (4.20-6.10); RED CELL DISTRIBUTION WIDTH 20.5 % (11.6-13.7); WHITE BLOOD COUNT (AUTO) 12.6 K/uL (4.8-10.8)
[2021-01-12 05:51] LABS: ANION GAP 11.4 (8-16); CARBON DIOXIDE 27.3 mmol/L (21-32); CREATININE 0.8 mg/dL (0.6-1.3); POTASSIUM 3.7 mmol/L (3.5-5.1)
[2021-01-12] MEDS: PIPERACILLIN/TAZOBACTAM 3.375 GM in DEXTROSE 5% 50 ML IV SCH ×2 (05:55→13:01)
--- NOTE | 2021-01-12 07:35 | NUR ---
PT WAS ENDORSED FROM CRIME INVESTIGATOR SPECIAL AGENT NURSE FOR CONTINUITY OF CARE. PT IS AOX 2, APHASIC. PT IS STABLE IN BED WITH CHEST RISING AND FALLING EVEN AND UNLABORED WITH O2 SAT AT 96%. [facility]. PT HAS A SACRAL WOUND AND RIGHT HIP WOUND, REINFORCED WITH DRESSING. PT HAS A RIGHT WRIST 22G INFUSING FLUIDS WELL. PT IS RECEIVING VITAL AF 1.2 AT 70 ML PER HR. PLAN OF CARE DISCUSSED. ALL SAFETY MEASURES IN PLACE, WILL CONTINUE TO MONITOR.
[2021-01-12 08:00] VITALS: BP 153/90
[2021-01-12] MEDS: POTASSIUM CHLORIDE 20% 40 MEQ/15 ML UDC GT SCH (09:42)
[2021-01-12] MEDS: LACOSAMIDE 200 MG/20 ML GT SCH (09:42)
[2021-01-12] MEDS: DOXAZOSIN 2 MG TAB GT SCH (09:42)
[2021-01-12] MEDS: ASCORBIC ACID 500 MG/5 ML ORASYR GT SCH (09:42)
[2021-01-12] MEDS: SULFAMETH/TRIMETH DS 800/160MG 1 TAB PEG SCH (09:42)
[2021-01-12] MEDS: FAMOTIDINE 20 MG TAB GT SCH (09:43)
[2021-01-12] MEDS: METOPROLOL 25 MG TAB GT SCH (09:43)
[2021-01-12] MEDS: APIXABAN 2.5 MG TAB GT SCH (09:43)
[2021-01-12] MEDS: SUCRALFATE 1 GM TAB GT SCH (09:44)
[2021-01-12] MEDS: ASPIRIN 81 MG TAB.CHEW GT SCH (09:44)
[2021-01-12] MEDS: levETIRAcetam 100 MG/ML ORASYR GT SCH (09:50)
--- NOTE | 2021-01-12 10:00 | NUR ---
ALL SCHEDULED MEDICATIONS GIVEN. PT IS STABLE. NO DISTRESS NOTED. WILL CONTINUE TO MONITOR.
[2021-01-12] MEDS: POTASSIUM CHL 40 MEQ/ D5-1/2NS 1,000 ML IV SCH (11:53)
[2021-01-12 12:00] VITALS: BP 123/71
--- NOTE | 2021-01-12 12:10 | NUR ---
CHECKED ON PATIENT. PT IS STABLE. NO DISTRESS NOTED. FLACC 0. WILL CONTINUE TO MONITOR.
[2021-01-12] MEDS: SKINTEGRITY HYDROGEL TP SCH (13:01)
--- NOTE | 2021-01-12 14:10 | NUR ---
RECEIVED A CALL FROM KATYA VICTOR. PATIENT WILL BE TRANSFERRED TO [facility] BY [facility] AT 1600.
[2021-01-12 15:35] VITALS: BP 107/73
[2021-01-12] MEDS: ACETAMINOPHEN 325 MG TAB PO PRN (15:43)
[2021-01-12 16:00] VITALS: BP 107/73
--- NOTE | 2021-01-12 16:00 | NUR ---
[facility] RE[facility]. ENDORSED TO THE NURSE THAT PATIENT WILL BE TRANSPORTED AT 1600 BY [facility].
--- NOTE | 2021-01-12 16:20 | NUR ---
PATIENT DISCHARGED OFF THE UNIT. PICKED UP BY [facility] TO BE TRANSPORTED TO [facility]. PT WAS STABLE PRIOR TO DISCHARGE.
== END 2021-01-12 16:25 | DRG 720 ==
LOC: MED 19:19 → MMU 21:24 → MTU 12-31 17:50
PROVIDERS: ADMIT Preventive Medicine Preventive Medicine/Occupational Environmental Medicine; ATTEND Preventive Medicine Preventive Medicine/Occupational Environmental Medicine
PROC: 5A1955Z Respiratory Ventilation, Greater than 96 Consecutive Hours (ICD-10-PCS; principal; 2020-12-30)
DX: A41.9 Sepsis, unspecified organism (principal); J96.20 Acute and chronic respiratory failure, unspecified whether with hypoxia or hypercapnia; J15.0 Pneumonia due to Klebsiella pneumoniae; L89.154 Pressure ulcer of sacral region, stage 4; E87.0 Hyperosmolality and hypernatremia; E87.1 Hypo-osmolality and hyponatremia; E83.39 Other disorders of phosphorus metabolism; B37.49 Other urogenital candidiasis; S06.5X0A Traumatic subdural hemorrhage without loss of consciousness, initial encounter; R13.10 Dysphagia, unspecified; I35.1 Nonrheumatic aortic (valve) insufficiency; I48.20 Chronic atrial fibrillation, unspecified; E88.09 Other disorders of plasma-protein metabolism, not elsewhere classified; I25.10 Atherosclerotic heart disease of native coronary artery without angina pectoris; Z20.822 Contact with and (suspected) exposure to COVID-19; X58.XXXA Exposure to other specified factors, initial encounter; G40.909 Epilepsy, unspecified, not intractable, without status epilepticus; C76.0 Malignant neoplasm of head, face and neck; E87.6 Hypokalemia; D64.9 Anemia, unspecified; E83.52 Hypercalcemia; I10 Essential (primary) hypertension; Z79.01 Long term (current) use of anticoagulants; Y93.89 Activity, other specified; Y99.8 Other external cause status; Z95.1 Presence of aortocoronary bypass graft; Z85.89 Personal history of malignant neoplasm of other organs and systems; Z68.23 Body mass index [BMI] 23.0-23.9, adult; Y92.89 Other specified places as the place of occurrence of the external cause
CPT/HCPCS: 36415; 36600; 70450; 71045; 80048; 80053; 80202; 81003; 82550; 82803; 83605; 83735; 83880; 84100; 84484; 85025; 85610; 85651; 85730; 86140; 87040; 87070; 87081; 87086; 87205; 89220; 93005; 94002; 94003; 94640; 96365; 96366; 96367; 99291; A6248; J1940; J2001; J2543; J3370; J3475; J3480; J7030; J7060; Q0092

== ENCOUNTER 2021-01-30 13:04 | Inpatient (IN) | payer MEDICAID, SELFPAY ==
[~2021-01-30] VITALS: Ht 170.2 cm; Wt 61.2 kg
[~2021-01-30 13:04] MED LIST changes: +SULF-954 PEG; -VANC1PLA7 IV
--- NOTE | 2021-01-30 13:04 | NUR ---
Loco CARVAJAL via gurney to bed 04.
[2021-01-30 13:10] VITALS: BP 116/75
--- NOTE | 2021-01-30 13:40 | NUR ---
65-year-old male BIBA from [facility] with PEG tube dislogement.Trach to vent(set up by RT per order). Pt is alert, awake and able to answer simple yes/no questions. Resp even and unlabored. Trach patent and in place, thin white secretions obtained. Ronchi noted bilat. PEG tube noted with redness at insertion area. Area is tender/redenned and hard to touch. + BS heard x4. St 4 PI noted to sac. Pt offloaded to side for comfort. Sinus tach noted on the monitor (118). Pt noted diaphoretic, afebrile at this time. SR padded for seizure precautions. PmHx: chronic resp failure, trach to vent, aFib, epilepsy, UEDVT, CABG, CAD, AV valved regurg. PNA dysphagia, GT, St 4 saccrococcyx PI NO KNOWN ALLERGIES Home meds: Mult, see chart
--- NOTE | 2021-01-30 13:50 | NUR ---
ERMD AT BEDSIDE ASSESSING PT. MADE AWARE OF REDNESS TO GT.
--- NOTE | 2021-01-30 14:13 | NUR ---
XRAY AT BEDSIDE
--- NOTE | 2021-01-30 14:14 | NUR ---
BOO TEACH AT BEDSIDE PERFORMING ekg
--- NOTE | 2021-01-30 14:15 | NUR ---
PT TEMP 100.1 REPORT TO ERMD
[2021-01-30 14:36] LABS: BASOPHILS % (AUTO) 0.2 % (0.0-2.0); EOSINOPHILS % (AUTO) 0.3 % (0.0-4.0); HEMATOCRIT 31.8 % (36-52); HEMOGLOBIN 9.6 g/dL (12.0-18.0); LYMPHOCYTES % (AUTO) 7.5 % (20.5-51.1); MEAN CORPUSCULAR HEMOGLOBIN 21 pg (27-31); MEAN CORPUSCULAR HGB CONC 30 g/dL (33-37); MEAN CORPUSCULAR VOLUME 69.6 fL (80-94); MONOCYTES # (AUTO) 0.8 K/uL (0.8-1.0); MONOCYTES % (AUTO) 6.6 % (1.7-9.3); NEUTROPHILS # (AUTO) 10.8 K/uL (1.8-7.7); NEUTROPHILS % (AUTO) 85.4 % (42.2-75.2); PLATELET COUNT (AUTO) 256 K/uL (140-450); RED BLOOD CELL COUNT(AUTO) 4.56 MIL/uL (4.20-6.10); RED CELL DISTRIBUTION WIDTH 21.1 % (11.6-13.7); WHITE BLOOD COUNT (AUTO) 12.7 K/uL (4.8-10.8)
[2021-01-30 14:49] LABS: PROTHROMBIN TIME 11.4 secs (10.8-13.4)
--- NOTE | 2021-01-30 14:50 | NUR ---
Patient appears to be resting comfortably in bed. Vital Signs within normal limits. Respirations even and unlabored. pt remains afebrile
--- NOTE | 2021-01-30 15:00 | NUR ---
Pt repositioned for comfort. Trach remains patent at this time. All needs met.
[2021-01-30 15:05] LABS: ALBUMIN 2.1 g/dL (3.4-5.0); ANION GAP 9.9 (8-16); CARBON DIOXIDE 33.2 mmol/L (21-32); CREATININE 0.6 mg/dL (0.6-1.3); POTASSIUM 3.1 mmol/L (3.5-5.1); TOTAL BILIRUBIN 0.3 mg/dL (0.0-1.0)
--- NOTE | 2021-01-30 16:45 | NUR ---
TRANSPORTING PT TO CT SCAN - PT TOLERATED WELL - NO DISTRESS NOTED- PT PLACED ON VENT IN CT SCAN ROOM - BROUGHT BACK TO ER BED 4 - PLACED BACK ON VENT WO ISSUE.
--- NOTE | 2021-01-30 17:33 | NUR ---
Urine colected and taken to lab.
--- NOTE | 2021-01-30 17:45 | NUR ---
Respiratory Therapist at bedside for respiratory intervention. Patient tolerated .
--- NOTE | 2021-01-30 17:55 | NUR ---
Pt taken to CT with RT and highway maintenance technician on board with monitor. Pt tolerated procedure well.
[2021-01-30 18:03] LABS: BILIRUBIN,URINE NEGATIVE (NEGATIVE); BLOOD, URINE NEGATIVE (NEGATIVE); COLOR,URINE YELLOW (YELLOW); LEUKOCYTE ESTERASE ,URINE 2+ (NEGATIVE); NITRITE, URINE NEGATIVE (NEGATIVE); PH,URINE 7.5 (5.0-9.0); UGLUCOSE NEGATIVE (NEGATIVE)
--- NOTE | 2021-01-30 18:03 | NUR ---
Pt repositioned for comfort, provided pericare. All needs met at this time.
[2021-01-30 18:06] LABS: APPEARANCE,URINE CLOUDY (CLEAR)
[2021-01-30 18:07] LABS: RBC,URINE NONE SEEN /HPF (0-5); WBC,URINE 80-100 /HPF (0-5); YEAST,URINE Few /HPF (None Seen)
--- NOTE | 2021-01-30 18:22 | NUR ---
Pt noted with small amount of black/red stool, Dr Fiore made aware with NNO at this time.
[2021-01-30 19:00] VITALS: BP 102/70
--- NOTE | 2021-01-30 19:02 | NUR ---
Respiratory Therapist at bedside for respiratory intervention. Patient tolerated WELL.
--- NOTE | 2021-01-30 19:21 | NUR ---
Pt report given to STEPHEN CANO. Transfer of care at this time.
[2021-01-30] MEDS ORDERED: VANCOMYCIN 1,000 MG in DEXTROSE 5% 250 ML IV ONE (19:25)
[2021-01-30] MEDS ORDERED: CEFEPIME 2,000 MG in DEXTROSE 5% 100 ML IV ONE (19:25)
--- NOTE | 2021-01-30 19:37 | NUR ---
1904 SPUTUM WAS COLLECTED AND SENT TO LAB
[2021-01-30] MEDS ORDERED: CEFEPIME 2,000 MG VIAL IV ONE (20:03)
[2021-01-30] MEDS ORDERED: VANCOMYCIN 1,000 MG VIAL ONE (20:04)
[2021-01-30] MEDS ORDERED: DEXT 5% /NACL 0.9% 1,000 ML IV ONE (21:05)
--- NOTE | 2021-01-30 21:43 | NUR ---
COVID 19 SHAILA WALKED OVER TO LAB
[2021-01-30 21:59] VITALS: BP 95/68
--- NOTE | 2021-01-30 22:39 | NUR ---
REPORT GIVEN TO [facility] RN AT THIS TIME.
--- NOTE | 2021-01-30 23:48 | NUR ---
PATIENT TO ROOM 108B 2300 ALERT NON VERBAL HAS TRACH TO VENT RATE 16, TV 500, FI02 35% PEEP 5. PATIENT ON MONITOR SINUS TACH. LUNG DIMINISH HAS DYSPHAGIA. ABDOMEN SOFT BUT HAS DIS-FUNCTIONAL PEG NEEDS TO BE FIX. NO FEEDING ORDERED. CHANGE DRESSING CLEAN AROUND PEG. APPEARS TO BE VERY PAINFUL WHEN CLEAN AROUND OR TOUCH. HAS 18 GA IN UPPER RIGHT ARM. PATIENT INCONT. OF STOOL AND URINE. HAS STAGE 4 WOUND. TEMP 98.3 [id number], RESP 18 B/P 105/76.
[2021-01-31] VITALS (8 sets, daily range): BP systolic 99–126; BP diastolic 68–85
--- NOTE | 2021-01-31 07:29 | NUR ---
PT HAS BEEN ENDORSED BY ELECTION JUDGE NURSE FOR CONTINUITY OF CARE, POC DISCUSSED. PT IS RESTING IN BED TRACH TO VENT, FIO2 35% SATING AT 100%. SUCTIONING PREFORMED DUE TO COUGHING, MODERATE WHITE SECRETIONS REMOVED. PT HAS A STAGE 4 SACRAL WOUND, DRESSING DRY AND INTACT. REPORTED PT HAS A MALFUNCTIONING PEG TUBE FROM [facility], DRESSING OVER PEG TUBE SITE IS DRY AND INTACT. PT HAS A LEFT UPPER ARM 18G RUNNING D5NS @ 100ML. PT ON THE TELEMONITOR SHOWING SINUS TACH AT 107. ALL SAFETY MEASURES IN PLACE, CALL LIGHT WITHIN REACH. WILL CONTINUE TO MONITOR.
--- NOTE | 2021-01-31 07:40 | NUR ---
RECEIVED ON A [employer] R860 VENTILATOR PLUGGED INTO RED OUTLET TOLERATING WELL WITHOUT ADVERSE REACTIONS NOTED TO A PORTEX DFEN #7 AIRWAY SECURED WITH A PABLITO TIFFANIE TIE CUFF PRESSURE CHECKED NOTED AMBU BAG AT BEDSIDE LOC AWAKE AND ALERT RESPONSIVE TO MEDICAL SOCIAL WORKER VERBAL BY PATIENT "MOUTHING WORDS" GOOD CHEST RISE DEEP TRACHEAL SUCTION FOR LARGE THIN YELLOW SECRETIONS AIRWAY PATENT Addendum: 01/31/21 at 1748 by Jermaine Diamond RT PABLITO MORENO TIE = PORTEX TRACH TIE
--- NOTE | 2021-01-31 08:36 | NUR ---
SPOKE WITH DR KAUR REGARDING PATIENT. ANSWERED ALL OF DRS QUESTIONS. STATED HE WILL PLACE ORDER FOR ANTIBIOTICS.
[2021-01-31] MEDS ORDERED: VANCOMYCIN PER PHARMACY MC PRN (08:45)
[2021-01-31] MEDS: ASPIRIN 81 MG TAB.CHEW GT SCH (08:53)
[2021-01-31] MEDS: FAMOTIDINE 20 MG TAB GT SCH (08:53)
[2021-01-31] MEDS: SUCRALFATE 1 GM TAB PO SCH ×2 (08:53→20:02)
[2021-01-31] MEDS: amLODIPine 5 MG TAB GT SCH (08:53)
[2021-01-31] MEDS: LACOSAMIDE 10 MG/ML PO SCH ×2 (08:54→20:04)
[2021-01-31] MEDS: ASCORBIC ACID 500 MG TAB PO SCH ×2 (08:54→20:05)
[2021-01-31] MEDS: levETIRAcetam 500 MG TAB PO SCH ×2 (08:54→20:03)
[2021-01-31] MEDS: METOPROLOL 25 MG TAB PO SCH ×2 (08:54→20:04)
[2021-01-31] MEDS: APIXABAN 2.5 MG TAB PO SCH ×2 (08:54→20:03)
--- NOTE | 2021-01-31 08:55 | NUR ---
ELISHA MEDICATION NON ADMINISTERED DUE TO PATIENTS PEG TUBE MALFUNCTIONING AND NPO STATUS. CHARGE NURSE AWARE AND VERBALIZED OKAY. PT IS STABLE IN BED WITH NO ACUTE S/S OF DISTRESS, ABLE TO COMMUNICATE THROUGH HEAD NODS AND HAND GESTURES. ALL SAFETY MEASURES IN PLACE. CALL LIGHT WITHIN REACH WILL CONTINUE TO MONITOR.
[2021-01-31] MEDS ORDERED: NON-FORMULARY ITEM (Lacosamide (Vimpat) 200 MG) PO SCH (09:00)
[2021-01-31] MEDS ORDERED: LEVETIRACETAM 1500 MG PO SCH (09:00)
[2021-01-31] MEDS ORDERED: NON-FORMULARY ITEM (Atorvastatin Calcium 1 TAB) PO SCH (09:00)
--- NOTE | 2021-01-31 09:30 | NUR ---
SUCTIONING PREFORMED NEEDED, MODERATE WHITE SPUTUM REMOVED FROM MOUTH. PT O2 SATURATIONS AT 99%. PT NODDED THAT HE FEELS BETTER AFTER SUCTIONING. WILL CONTINUE TO MONITOR. ALL SAFETY MEASURES IN PLACE. CALL LIGHT WITHIN REACH. WILL CONTINUE TO MONITOR.
--- NOTE | 2021-01-31 10:14 | NUR ---
01/31/21 RD INITIAL ASSESSMENT COMPLETED PLEASE REFER TO NUTRITION ASSESSMENT UNDER CARE ACTIVITY FOR ESTIMATED NUTRITIONAL NEEDS. 1. IF/WHEN MEDICALLY STABLE CONSIDER TUBE FEEDING WITH VITAL AF 1.2 @ 60 ML/HR; START AT 10 ML/HR ADVANCE BY 10 ML Q6H -THIS WILL PROVIDE 1728 KCAL/DAY AND 108 GM OF PROTEIN/DAY 2. RECOMMEND DU BID TO PROMOTE WOUND HEALING 3. RECOMMEND FREE WATER FLUSH OF [address] TO FOLLOW-UP 2-3 DAYS, HIGH RISK ALYCE PLUMMER RD
--- NOTE | 2021-01-31 10:26 | NUR ---
PT IS STABLE IN BED WITH NO ACUTE S/S OF DISTRESS, SATING AT 100%. ALL SAFETY MEASURES IN PLACE. CALL LIGHT WITHIN REACH. WILL CONTINUE TO MONITOR.
--- NOTE | 2021-01-31 10:40 | NUR ---
NO DISTRESS NOTED GOOD CHEST RISE AIRWAY PATENT
[2021-01-31] MEDS: VANCOMYCIN 1,000 MG in DEXTROSE 5% 250 ML IV SCH ×2 (10:49→23:00)
[2021-01-31] MEDS ORDERED: POTASSIUM CHL 40 MEQ/ D5-1/2NS 1,000 ML IV ONE (11:05)
[2021-01-31] MEDS ORDERED: KCL 20 MEQ/WATER INJ PREMIX 200 ML IV ONE (11:15)
--- NOTE | 2021-01-31 11:21 | NUR ---
ELISHA MEDICATION ADMINISTERED PER MD ORDER, PT TOLERATED ADMINISTRATION. PT EDUCATION PROVIDED. PT NODDED IN UNDERSTANDING. ALL SAFETY MEASURES IN PLACE, CALL LIGHT WITHIN REACH. WILL CONTINUE TO MONITOR.
[2021-01-31] MEDS: DEXT 5% /NACL 0.9% 1,000 ML IV SCH ×2 (11:59→21:55)
--- NOTE | 2021-01-31 12:34 | NUR ---
ELISHA MEDICATION ADMINISTERED PER MD ORDER, PT TOLERATED ADMINISTRATION. PT EDUCATION PROVIDED, PT NODDED IN UNDERSTANDING. PT IS STABLE ON TELE MONITOR SHOWING SINUS RHYTHM, SPO2 IS AT 99%. ALL SAFETY MEASURES IN PLACE, CALL LIGHT WITHIN REACH. WILL CONTINUE TO MONITOR.
[2021-01-31] MEDS: PIPERACILLIN/TAZOBACTAM 3.375 GM in DEXTROSE 5% 50 ML IV SCH ×2 (12:36→18:19)
--- NOTE | 2021-01-31 13:18 | NUR ---
NO EVIDENCE OF RESPIRATORY DISTRESS NOTED EQUAL CHEST RISE DEEP TRACHEAL SUCTION FOR LARGE SEMI THICK TO THIN YELLOW SECRETIONS AIRWAY PATENT
--- NOTE | 2021-01-31 13:28 | NUR ---
SINTIA HUNG IN NEW PRIMARY TUBING AND CONNECTED TO PT IV. IV PATENT. 2 RN CHECK. PT EDUCATION PROVIDED AND PT NODDED. ALL SAFETY MEASURES IN PLACE, CALL LIGHT WITHIN REACH. WILL CONTINUE TO MONITOR.
--- NOTE | 2021-01-31 13:31 | NUR ---
DC [age] YRS OLD MALE PATIENT WAS ADMITTED FROM [facility] WITH A DX OF PNEUMONIA, UTI, CELLULITIS. PATIENT HAS A HX OF CHRONIC HYPOXIC RESPIRATORY FAILURE S/P TRACHEOSTOMY WITH VENT DEPENDENT, NECK CANCER, HTN, CABG, AND SEIZURE. CXR SHOWED PERSISTENT PERIHILAR AND BIBASAL OPACITIES WHICH MAY REPRESENT ATELECTASIS. RAPID COVID TEST NEGATIVE. BLOOD AND URINE CULTURE PENDING. ADMINISTERED ZOSYN AND VANCOMYCIN. CONSULTED WITH PULMO, AND ID. DC PLAN TO RETURN TO [facility] WHEN STABLE. CM TO FOLLOW
--- NOTE | 2021-01-31 14:58 | NUR ---
PT HAS BEEN CLEANED, SHEETS CHANGED, WOUND CARE PROVIDED. CLEANSED WITH NS, PAT DRIED, APPLIED THERAHONEY, APPLIED ADAPTIVE DRESSING AND DRY FOAM DRESSING. SUCTIONING PREFORMED PRN, MODERATE WHITE SECRETIONS. PT HAD 1 LARGE BM. PT NODDED THAT ALL NEEDS ARE MET. ALL SAFETY MEASURES IN PLACE, CALL LIGHT WITHIN REACH. WILL CONTINUE TO MONITOR.
--- NOTE | 2021-01-31 16:07 | NUR ---
DC PLANNING: CM SPOKE WITH THE RN ON THE SUB-ACUTE UNIT AT [facility]. THE PATIENT IS TRACH TO VENT WITH PEG AND WAS SENT TO THE ED WHEN HIS PEG DISLODGED AND THE FACILITY WAS UNABLE TO REINSERT IT. THE PATIENT IS TOTAL CARE AND NON-VERBAL, BUT IS AWAKE AND ALERT AND ABLE TO RESPOND BY SHAKING OR NODDING HIS HEAD. PLAN IS FOR GI CONSULT WITH DR SHIRLEY TO EVALUATE FOR PEG REINSERTION, THE PATIENT IS ALSO BEING FOLLOWED BY ID AND PULMONOLOGY. DC PLAN IS TO RETURN TO [facility] WHEN CLINICALLY STABLE, CM WILL FOLLOW FOR NEEDS. Addendum: 02/02/21 at 1615 by Kristen Barron CM DC PLANNING: PEG NOT REINSERTED THE PATIENT POTENTIALLY HAS CELLULITIS AT THE PEG SITE. PATIENT ALSO HAS NEW FINDINGS OF A PNEUMOTHORAX ON CXR WHICH HAS ADVANCED FROM 30% TO 40%. PATIENT IS MRSA POSITIVE AND HAS A NGT, RD CONSULT COMPLETED. HE IS ON ZOSYN AND VANCO IV, FIO2 24%. CONTINUED TREATMENT FOR INFECTION AND POSSIBLE PNA, RESINSERTION OF PEG WHEN HE IS MORE STABLE. CM WILL FOLLOW FOR NEEDS. Addendum: 02/10/21 at 1511 by Kristen A Tager CM DC PLANNING: THE PATIENT REMAINS WITH CHEST TUBE SECONDARY TO PNEUMOTHORAX, CHEST TUBE IS CLAMPED, POSSIBLE DC AFTER REPEAT CXR IF THE PNEUMOTHORAX IS RESOLVED. THE PATIENT IS ON MEREM AND FLUCONAZOLE FOR PNA AND DECUBITUS INFECTION, SPUTUM CULTURE RESULTED ON 02/09 IS POSITIVE FOR PSEUDOMONAS AND ESBL. PATIENT IS BEING FOLLOWED BY SURGERY, ID, CARDIOLOGY NEPHROLOGY AND PULMONOLOGY. THE PATIENT IS TRACH/VENT PEG WITH FIO2 AT 28%, DC PLAN IS TO RETURN TO [facility] WHEN STABLE. CM WILL FOLLOW FOR NEEDS. Addendum: 02/10/21 at 1518 by Kristen Barron CM DC PLANNING: CORRECTION TO ABOVE NOTE, DC PLAN IS FOR THE PATIENT TO RETURN TO [facility] WHEN CLINICALLY STABLE. THE CHEST TUBE WAS DC'D TODAY BY DR MERRILL, AND THE PATIENTS PEG WAS REPLACED ON 02/06. CM WILL FOLLOW FOR NEEDS. Addendum: 02/13/21 at 1231 by Kristen Barron DC PLANNING: DC ORDER RECEIVED, PATIENT ACCEPTED BACK TO [facility] TO ROOM 110A, DR SIEGEL TO FOLLOW. CCT TRANSPORT WITH [facility] [place] ARRANGED FOR 1430 PICK-UP. INFORMATION ENDORSED TO THE PATIENTS NURSE JABARI, THE PATIENTS ITZEL MANRIQUEZ WAS ALSO NOTIFIED OF HIS REGULATORY SUBMISSIONS SPECIALIST TIME AND PLAN TO DC TO [place] TODAY. WILL FOLLOW FOR NEEDS.
--- NOTE | 2021-01-31 16:37 | NUR ---
SECOND KRIDER BAG HUNGER PER MD ORDER FOR A TOTAL OF 40 MEQ BEING ADMINISTERED TO PT.
--- NOTE | 2021-01-31 17:15 | NUR ---
STABLE EQUAL CHEST RISE DEEP TRACHEAL SUCTION FOR MODERATE THIN YELLOW SECRETIONS AIRWAY PATENT SATURATION 100% ON FIO2 OF 35% PEEP 5cmH2O TITRATED FIO2 TO 30% YANCY/RN NOTIFIED
--- NOTE | 2021-01-31 18:38 | NUR ---
ELISHA MEDICATION ADMINISTERED PER MD ORDER, PT EDUCATION PROVIDED. AND PT NODDED IN UNDERSTANDING. ALL SAFETY MEASURES IN PLACE, CALL LIGHT WITHIN REACH. WILL CONTINUE TO MONITOR.
--- NOTE | 2021-01-31 19:29 | NUR ---
PT HAS BEEN ENDORSED TO STAFF WEAPONS OFFICER NURSE FOR CONTINUITY OF CARE, POC DISCUSSED.
--- NOTE | 2021-01-31 20:00 | NUR ---
PATIENT WAS RECEIVED IN HIS BED, ON TRACH TO VENT, ASLEEP BREATHING REGULARLY, WITH NO RESPIRATORY DISTRESS
--- NOTE | 2021-01-31 20:00 | NUR ---
PATIENT RECEIVED ASLEEP BUT NO DISTRESS. ON TRACH TO VENT
[2021-01-31] MEDS: DOXAZOSIN 2 MG TAB GT SCH (20:01)
--- NOTE | 2021-01-31 20:44 | NUR ---
ALL DUE PEG MEDICATIONS WERE HELD DUE TO PEG WAS DISPLACED. PATIENT IS ON NPO AT THIS TIME.
[2021-02-01] VITALS: BP 108/82
--- NOTE | 2021-02-01 | NUR ---
ALL DUE IV MEDS ON 2300 AND MIDNIGHT WERE GIVEN, WELL TOLERATED BY THE PATIENT, PATIENT STILL ASLEEP CALMLY
--- NOTE | 2021-02-01 02:00 | NUR ---
PATIENT WAS STILL CALMLY ASLEEP.
[2021-02-01 04:00] VITALS: BP 129/93
--- NOTE | 2021-02-01 04:00 | NUR ---
PATIENT WAS STILL CALMLY ASLEEP. PATIENT WAS CLEANED AND CHANGED THE BEDDINGS AND LINENS.
--- NOTE | 2021-02-01 05:00 | NUR ---
VITAL SIGNS ARE WITHIN NORMAL RANGE EXCEPT FOR DIASTOLIC AT 93 AND HR AT 103.
[2021-02-01] MEDS: DEXT 5% /NACL 0.9% 1,000 ML IV SCH ×2 (06:00→21:31)
[2021-02-01] MEDS: PIPERACILLIN/TAZOBACTAM 3.375 GM in DEXTROSE 5% 50 ML IV SCH ×5 (06:00→18:02)
[2021-02-01 07:09] LABS: BASOPHILS % (AUTO) 0.3 % (0.0-2.0); EOSINOPHILS # (AUTO) 0.2 K/uL (0-0.4); EOSINOPHILS % (AUTO) 1.6 % (0.0-4.0); HEMATOCRIT 29.3 % (36-52); HEMOGLOBIN 8.9 g/dL (12.0-18.0); MEAN CORPUSCULAR HEMOGLOBIN 21 pg (27-31); MEAN CORPUSCULAR HGB CONC 31 g/dL (33-37); MEAN CORPUSCULAR VOLUME 70.2 fL (80-94); MONOCYTES # (AUTO) 0.8 K/uL (0.8-1.0); MONOCYTES % (AUTO) 8.1 % (1.7-9.3); PLATELET COUNT (AUTO) 259 K/uL (140-450); RED BLOOD CELL COUNT(AUTO) 4.17 MIL/uL (4.20-6.10); RED CELL DISTRIBUTION WIDTH 21.4 % (11.6-13.7)
[2021-02-01 07:33] LABS: ALBUMIN 1.8 g/dL (3.4-5.0); ANION GAP 11.8 (8-16); CARBON DIOXIDE 28.9 mmol/L (21-32); CREATININE 0.6 mg/dL (0.6-1.3); PHOSPHORUS 2.9 mg/dL (2.5-4.9); TOTAL BILIRUBIN 0.3 mg/dL (0.0-1.0)
[2021-02-01 08:00] VITALS: BP 137/89
[2021-02-01 08:05] LABS: POTASSIUM 2.7 mmol/L (3.5-5.1)
[2021-02-01] MEDS: FAMOTIDINE 20 MG TAB GT SCH (09:00)
[2021-02-01] MEDS: ASPIRIN 81 MG TAB.CHEW GT SCH (09:00)
[2021-02-01] MEDS ORDERED: NON-FORMULARY ITEM (Atorvastatin Calcium 10 MG) PO SCH (09:00)
[2021-02-01] MEDS: ASCORBIC ACID 500 MG TAB PO SCH ×2 (09:00→21:00)
[2021-02-01] MEDS: APIXABAN 2.5 MG TAB PO SCH (09:00)
[2021-02-01] MEDS: LACOSAMIDE 10 MG/ML PO SCH ×2 (09:00→21:00)
[2021-02-01] MEDS: ATORVASTATIN 20 MG TAB GT SCH (09:00)
[2021-02-01] MEDS: METOPROLOL 25 MG TAB PO SCH ×2 (09:00→21:00)
[2021-02-01] MEDS: SUCRALFATE 1 GM TAB PO SCH (09:00)
[2021-02-01] MEDS: amLODIPine 5 MG TAB GT SCH (09:00)
[2021-02-01] MEDS: levETIRAcetam 500 MG TAB PO SCH ×2 (09:00→21:00)
--- NOTE | 2021-02-01 09:55 | NUR ---
SCHEDULED MEDICATIONS NOT GIVEN PATIENT HAS GTUBE MALFUNCTION. AWAITING FOR GI MD FOR EVAL. IV POTASSIUM GIVEN AT THIS TIME PER MD ORDERS. WILL CONTINUE TO MONITOR.
[2021-02-01] MEDS: KCL 20 MEQ/WATER INJ PREMIX 100 ML IV SCH ×2 (10:10→12:00)
[2021-02-01] MEDS: VANCOMYCIN 1,000 MG in DEXTROSE 5% 250 ML IV SCH ×2 (11:00→22:52)
--- NOTE | 2021-02-01 11:31 | NUR ---
WOUND CARE EVALUATION NOTE: REASON FOR EVALUATION: LOW VITO SCALE AND PRESSURE INJURY SKIN ASSESSMENT DONE WITH THIS 65 Y/O PT ADMITTED FROM SNF TO [facility] WITH INITIAL DX PEG TUBE DISLODGE. PAST MEDICAL HX INCLUDES NECK CANCER, CVA, CHRONIC ATRIAL FIBRILLATION, CORONARY ARTERY DISEASE, HYPERTENSION, SEIZURE DISORDER, DYSPEPSIA, HYPERLIPIDEMIA, DYSPHAGIA AND PRESSURE INJURY. PT ADMITTED WITH SACRAL COCCYX PRESSURE INJURY. PAST SURGICAL HISTORY: CABG, TRACHEOSTOMY AND GASTROSTOMY. ALL ABOVE INFORMATION OBTAINED FROM ADMISSION H&P. PT IS AWAKE. SKIN IS WARM AND DRY, BLE FEW HAIR GROWTH, NO EDEMA. DORSAL PEDAL PULSES PRESENT AND NORMAL FUNGAL TOENAILS X 10 TOES. INCONTINENT OF BOWEL AND BLADDER POC DISCUSSED WITH PRIMARY RN. INTEGUMENTARY: -ORAL MEMBRANE PINK INTACT, LIPS, DRY -TRACH SITE BRIAN STOMA SKIN DRY AND CLEAN. SKIN INTACT. -GT SITE BRIAN STOMA WITH SKIN INTACT. -INCONTINENT ASSOCIATED DERMATITIS TO GROINS AND BRIAN-RECTAL SKIN RED AND INTACT. -PRESSURE ULCER INJURY STAGE 4, SACROCOCCYX 5X4.5X0.2CM WITH UNDERMINING 0.8CM FROM 12 O'CLOCK TO 3 O'CLOCK DIRECTION, WOUND BED IS RED 100% GRANULATING TISSUE, MOIST NO ODOR, WOUND EDGE FLAT, BRIAN WOUND SKIN INTACT HEALED SCAR TISSUE AND BLANCHABLE REDNESS RECOMMENDATIONS: -APPLY HYDRAGUARD TO R/L GROINS EXTENDED TO PERINEUM BID AND PRN IF SOILING - CLEANSE SACRALCOCCYX WITH WOUND CLEANSING SOLUTION AND APPLY THERAHONEY GEL TO WOUND BED COVER WITH ISLAND DRESSING QD AND PRN IF SOILING -APPLY HEEL PROTECTORS TO BOTH HEELS AT ALL TIMES -OFFLOAD BILATERAL HEELS BY PLACING PILLOWS UNDER CALVES UNLESS OTHERWISE CONTRAINDICATED -PRESSURE REDISTRIBUTION SURFACE THERAPY -TURN AND REPOSITION Q2H, OFFLOAD SACRALCOCCYX AND BUTTOCKS BY TURNING RIGHT AND LEFT -CONTINUE TO FOLLOW RD RECOMMENDATIONS PLEASE CONTACT WOUND CARE NURSE FOR ANY QUESTION AND CHANGE OF WOUND CONDITION.
[2021-02-01 12:00] VITALS: BP 130/97
--- NOTE | 2021-02-01 12:41 | NUR ---
PER PRIMARY RN DR. SHIRLEY REMOVE GT AND REQUEST WOUND CARE. MID ABDOMINAL SURGICAL WOUND GT SITE 1X2CM WOUND SITE DRY NO DRAINAGE, NO ODOR, WOUND EDGE DRY SCAB, BRIAN WOUND SKIN INTACT. POC DISCUSSED WITH PRIMARY RN RECOMMEND SURGICAL WOUND CLEANSE WITH NS, PAT DRY, PACK WITH IODOFORM STRIP AND COVER WITH DRY DRESSING QD AND PRN IF SOILING
[2021-02-01] MEDS: THERAHONEY GEL 42.5 GM TP SCH (13:02)
[2021-02-01] MEDS ORDERED: POTASSIUM CHLORIDE 20% 40 MEQ/15 ML UDC PO SCH (14:00)
--- NOTE | 2021-02-01 14:15 | NUR ---
GTUBE REMOVED PER RADIOLOGIST NGTUBE LOOKED LIKE INSIDE LUNG. WILL CONTINUE OT MONITOR.
[2021-02-01 16:00] VITALS: BP 122/86
[2021-02-01] MEDS ORDERED: BENZOCAINE 20% 57 GM CAN MC PRN (19:10)
--- NOTE | 2021-02-01 19:36 | NUR ---
GAVE REPORT TO PEAR PICKER NURSE FOR CONTINUITY OF CARE. PATIENT IN STABLE CONDITION.
--- NOTE | 2021-02-01 19:37 | NUR ---
RECEIVED BEDSIDE REPORT FROM AM SHIFT RN. PATIENT IS TRACH TO VENT. PEG TUBE DISLODGEMENT - CURRENTLY NO PLACEMENT, SO FEEDINGS ARE NOT GIVEN AT THIS MOMENT. PRESSURE ULCER SACRAL. IV SITE LORA 20G, RUNNING D5 1/2 NS 60ML/HR.
[2021-02-01 20:00] VITALS: BP_SYST 113; BP_SYST 117; BP_DIAS 82; BP_DIAS 88
[2021-02-01] MEDS: DOXAZOSIN 2 MG TAB GT SCH (21:00)
[2021-02-01] MEDS: LACTULOSE 20 GM/30 ML UDC PO SCH (21:00)
[2021-02-01] MEDS ORDERED: MAGNESIUM CITRATE 300 ML BTL PO SCH (21:00)
--- NOTE | 2021-02-01 22:50 | NUR ---
NG TUBE PLACED, RADIOLOGY CONSULTED FOR CONFIRMATION.
--- NOTE | 2021-02-01 22:55 | NUR ---
STABLE NO APPARENT DISTRESS NOTED DEEP TRACHEAL SUCTION FOR LARGE THIN/WATERY MELISSA SECRETIONS AIRWAY PATENT
--- NOTE | 2021-02-01 23:30 | NUR ---
PTS CXRAY SHOWED PNEUMOTHORAX ON LEFT LUNG 30%. PAGED DR GLEZ. WAITING TO GET A CALL BACK. Addendum: 02/02/21 at 0018 by Lexis Galaviz RN RN NG TUBE PLACED. WAITING TO HEAR BACK ON RADIOLOGY REPORT FOR CONFIRMATION PLACEMENT.
[2021-02-02] VITALS (12 sets, daily range): BP systolic 92–116; BP diastolic 63–82
--- NOTE | 2021-02-02 00:20 | NUR ---
JEVONAL WAS REACHED. NOTIFIED ON HR OF 137 - NO FURTHER ORDERS. REPORTED TO HIM ABOUT NEW FINDINGS ON CXR LEFT LUNG PNEUMOTHORAX 30%. HE REQUESTED TRANSFER TO ICU. CAN GIVE 2100 MEDS IF NG TUBE PLACEMENT IS CONFIRMED -CURRENTLY PENDING
[2021-02-02] MEDS: PIPERACILLIN/TAZOBACTAM 3.375 GM in DEXTROSE 5% 50 ML IV SCH ×4 (00:24→22:01)
--- NOTE | 2021-02-02 01:00 | NUR ---
SPOKE WITH PULMONOLOGY GROUP PER REQUEST OF Moise GLEZ SPOKE WITH SPREADER MD GREGORIO, HE ORDERED A REPEAT CXR FOR THE AM, IF PNEUMOTHORAX IS LARGER, THEN TO TRANSFER TO ICU AND OBTAIN ORDERS FOR CHEST TUBE. PT V/S ARE STABLE NO S/S OF PAIN OR DISTRESS NOTED.
--- NOTE | 2021-02-02 01:48 | NUR ---
NO DISTRESS NOTED EQUAL CHEST RISE AIRWAY PATENT NO SUCTIONING AT THIS TIME CARPENTER TO MONITOR
[2021-02-02] MEDS ORDERED: MAGNESIUM CITRATE 300 ML BTL ONE (02:11)
--- NOTE | 2021-02-02 03:10 | NUR ---
SUCTIONED PT, CHANGED SOILED DIAPER. SMALL AMOUNT OF STOOL, SOFT. PT IS STABLE WILL CONTINUE TO MONITOR
--- NOTE | 2021-02-02 05:20 | NUR ---
NO DISTRESS NOTED GOOD CHEST RISE DEEP TRACHEAL SUCTION FOR LARGE THIN MELISSA SECRETIONS AIRWAY PATENT
[2021-02-02 07:18] LABS: BASOPHILS % (AUTO) 0.3 % (0.0-2.0); EOSINOPHILS % (AUTO) 0.2 % (0.0-4.0); HEMATOCRIT 26.9 % (36-52); LYMPHOCYTES # (AUTO) 1.2 K/uL (2.0-11.5); LYMPHOCYTES % (AUTO) 12.5 % (20.5-51.1); MEAN CORPUSCULAR HEMOGLOBIN 21 pg (27-31); MEAN CORPUSCULAR HGB CONC 30 g/dL (33-37); MEAN CORPUSCULAR VOLUME 70.4 fL (80-94); MONOCYTES # (AUTO) 0.8 K/uL (0.8-1.0); MONOCYTES % (AUTO) 8.5 % (1.7-9.3); NEUTROPHILS # (AUTO) 7.6 K/uL (1.8-7.7); NEUTROPHILS % (AUTO) 78.5 % (42.2-75.2); PLATELET COUNT (AUTO) 271 K/uL (140-450); RED BLOOD CELL COUNT(AUTO) 3.82 MIL/uL (4.20-6.10); RED CELL DISTRIBUTION WIDTH 20.7 % (11.6-13.7); WHITE BLOOD COUNT (AUTO) 9.7 K/uL (4.8-10.8)
--- NOTE | 2021-02-02 07:21 | NUR ---
PASSED ON BEDSIDE REPORT TO AM SHIFT RN. PT STABLE.
--- NOTE | 2021-02-02 07:22 | NUR ---
RECEIVED REPORT FROM [employer] NURSE. PT STABLE. NO S/S OF DISTRESS. BREATHING SYMMETRICAL. CALL LIGHT IN REACH. ALL SAFETY MEASURES IN PLACE. VENT SETTINGS 24% RATE 16. IV AND FEEDING RUNNING PER MD ORDERS
[2021-02-02 07:24] LABS: ANION GAP 14.7 (8-16); CARBON DIOXIDE 21.8 mmol/L (21-32); CREATININE 0.7 mg/dL (0.6-1.3)
[2021-02-02] MEDS: LACOSAMIDE 10 MG/ML PO SCH ×2 (09:00→21:00)
[2021-02-02] MEDS: METOPROLOL 25 MG TAB PO SCH ×2 (09:00→21:00)
[2021-02-02] MEDS: amLODIPine 5 MG TAB GT SCH (09:00)
[2021-02-02] MEDS: ATORVASTATIN 20 MG TAB GT SCH (09:46)
[2021-02-02] MEDS: FAMOTIDINE 20 MG TAB GT SCH (09:46)
[2021-02-02] MEDS: LACTULOSE 20 GM/30 ML UDC PO SCH (09:47)
[2021-02-02] MEDS: levETIRAcetam 500 MG TAB PO SCH (09:47)
[2021-02-02] MEDS: ASCORBIC ACID 500 MG TAB PO SCH ×2 (09:48→21:00)
--- NOTE | 2021-02-02 10:45 | NUR ---
PATIENT CHANGED , REPOSITIONED, AND CLEANSED , SISTER AT BEDSIDE. ORAL CARE PERFORMED . ONE LARGE BM LIQUID YELLOW AND GREEN 2 PERSON MAXIMUM ASSIST. PATIENT TOLERATED WELL 02% 9 HR 109. ALL SAFETY MEASURES ARE IN PLACE.
[2021-02-02 10:54] LABS: POTASSIUM 2.5 mmol/L (3.5-5.1)
--- NOTE | 2021-02-02 10:54 | NUR ---
RECEIVED CRITICAL PR;RADHA FROM [place] IN LAB. BUN 4, K 2.5 REPORTED. AWAITING ORDERS.
[2021-02-02] MEDS ORDERED: LACTULOSE 20 GM/30 ML UDC PO SCH (11:00)
--- NOTE | 2021-02-02 11:18 | NUR ---
MD GLEZ CONTACTED REGARDING PNEUMOTHORAX 40% . CONSULTATION RECEIVED FOR MD MERRILL . MD MERRILL AWARE.
--- NOTE | 2021-02-02 11:51 | NUR ---
MD SHIRLEY SPOKE TO ITZEL MANRIQUEZ [phone] REGARDING RISKS BENEFITS, COMPLICATIONS AND ALTERNATIVES FOR EGD/PEG placement. ANTIONEJOSEPH HAD NO FURTHER QUESTIONS AT THIS TIME . DOUBLE RN VERIFICATION COMPLETE .
[2021-02-02] MEDS: THERAHONEY GEL 42.5 GM TP SCH (11:55)
[2021-02-02] MEDS: GAUZE TP SCH (11:55)
[2021-02-02] MEDS: VANCOMYCIN 1,000 MG in DEXTROSE 5% 250 ML IV SCH ×2 (11:56→23:06)
--- NOTE | 2021-02-02 12:35 | NUR ---
MEDICATIONS GIVEN PER MD ORDER. PT EDUCATED . PT UNABLE TO VERBALIZE UNDERSTANDING. FLACC(0). PATIENT 02% 100 , HR 94. CALL LIGHT WITHIN REACH ALL SAFETY MEASURES ARE IN PLACE.
[2021-02-02] MEDS: MUPIROCIN CA NASAL 2% 1GM TUBE NS SCH (13:59)
--- NOTE | 2021-02-02 14:08 | NUR ---
PT RESTING IN BED. EDUCATED ON MEDICATION GIVEN. PATIENT TOLERATED APPLICATION WELL. NO S/S OF DISTRESS. CALL LIGHT IN REACH. ALL SAFETY MEASURES IN PLACE.
--- NOTE | 2021-02-02 14:40 | NUR ---
PAGED DR. GLEZ, STILL AWAITING ORDERS REGARDING PT CRITICAL VALUES.
--- NOTE | 2021-02-02 15:39 | NUR ---
02/02/21 RD FOLLOW UP COMPLETED PLEASE REFER TO NUTRITION ASSESSMENT UNDER CARE ACTIVITY FOR ESTIMATED NUTRITIONAL NEEDS. 1. IF/WHEN MEDICALLY STABLE CONSIDER TUBE FEEDING WITH VITAL AF 1.2 @ 60 ML/HR; START AT 10 ML/HR ADVANCE BY 10 ML Q6H -THIS WILL PROVIDE 1728 KCAL/DAY AND 108 GM OF PROTEIN/DAY 2. RECOMMEND UD BID TO PROMOTE WOUND HEALING 3. RECOMMEND FREE WATER FLUSH OF [address] TO FOLLOW-UP 2-3 DAYS, HIGH RISK ALYCE PLUMMER RD
[2021-02-02] MEDS ORDERED: POTASSIUM CHL 40 MEQ/ D5-1/2NS 1,000 ML IV SCH (15:45)
[2021-02-02] MEDS: KCL 20 MEQ/WATER INJ PREMIX 100 ML IV SCH ×2 (16:48→20:38)
--- NOTE | 2021-02-02 16:55 | NUR ---
PATIENT CHANGED AND REPOSITIONED, PT HAD LARGE BM YELLOW LOOSE. PT TOLERATED WELL 2 PERSON MAXIMUM ASSIST . ALL SAFETY MEASURE IN PLACE.
--- NOTE | 2021-02-02 17:45 | NUR ---
LATE ENTRY- END TIME FOR VANCOMYCIN IS 2300. END TIME FOR CEFEPIME IS 2130.
--- NOTE | 2021-02-02 18:03 | NUR ---
PT TRANSFERRED FROM TELE TO ICU WITH NO INCIDENT. VENT CONNECTED TO RED OUTLET. ALARMS AUDIBLE. AMBU BAG AT BEDSIDE. NO SOB OR DISTRESS NOTED. TRACH IN PLACE AND SECURED.
--- NOTE | 2021-02-02 18:20 | NUR ---
received pt from tele in bed , PLACEPT. IN ICU BED 1 CNNECT TO MONITOR SHOW SINUS TACH. DR. MERRILL IS IN THE UNIT HE CALLED FAMILY EXPLAN THE CHEST TUBE PROCEDURE TO THEM , THEY GIVE THE CONSENT.
[2021-02-02] MEDS ORDERED: LIDOCAINE MPF 1% 5 ML ONE (18:26)
--- NOTE | 2021-02-02 18:42 | NUR ---
PATIENT TRANSFERRED TO ICU 1. ENDORSED TO ICU NURSE. SPOKE TO PHARMACY TO VERIFY LIDOCAINE PULLED PER MD REQUEST FOR CHEST TUBE INSERTION, GIVEN DURING PROCEDURE.
[2021-02-02] MEDS ORDERED: LIDOCAINE MPF 1% 10 MG/ML VIAL INJ SCH (18:44)
--- NOTE | 2021-02-02 18:45 | NUR ---
DR. MERRILL INSERT RT UPPER CHEST TUBE, CONNECT TO CONTINUOUS SUCTION AT 20, CHEST X RAY WAS DONE , THE RESULT IS IN GOOD POSITION
--- NOTE | 2021-02-02 19:30 | NUR ---
PT, CONDITION STABLE , REPORT GIVE TO TONE CANO FOR CONTINUOUS CARE,
--- NOTE | 2021-02-02 19:30 | NUR ---
RECEIVED PATIENT FROM AM SHIFT NURSE FOR CONTINUITY OF CARE. ALERT AND ABLE TO MAKE SIMPLE NEEDS KNOWN. TRACH TO VENT. RESPIRATIONS EVEN, UNLABORED. NO S/S RESPIRATORY DISTRESS. S1/S2 AUSCULTATED. DENIES PAIN. SKIN WARM, DRY. IV SITE TO LEFT UPPER ARM 18G PATENT/INTACT, INFUSING POTASSIUM AT THIS TIME. ABDOMEN SOFT, NONTENDER, NONDISTENDED. BOWEL SOUNDS ACTIVE x4 QUADRANTS. DRESSING OVER OLD GT SITE CLEAN/DRY AND INTACT. NGT NOTED TO RIGHT NARE. PATIENT IS INCONTINENT OF B/B. PLAN OF CARE DISCUSSED. ISOLATION PRECAUTIONS OBSERVED BY ALL STAFF.
[2021-02-02] MEDS: levETIRAcetam 100 MG/ML ORASYR GT SCH (21:00)
[2021-02-02] MEDS: DOXAZOSIN 2 MG TAB GT SCH (21:00)
[2021-02-02] MEDS: DEXT 5% /NACL 0.9% 1,000 ML IV SCH (21:01)
--- NOTE | 2021-02-02 21:45 | NUR ---
DUE MEDS GIVEN. NO S/S RESPIRATORY DISTRESS. DENIES PAIN. PATIENT IS CLEAN/DRY.
--- NOTE | 2021-02-02 23:26 | NUR ---
PATIENT IS ASLEEP. NO S/S RESPIRATORY DISTRESS. PATIENT IS CLEAN/DRY.
[2021-02-03] VITALS (22 sets, daily range): BP systolic 88–124; BP diastolic 58–80
[2021-02-03] MEDS: PIPERACILLIN/TAZOBACTAM 3.375 GM in DEXTROSE 5% 50 ML IV SCH ×4 (00:09→18:12)
--- NOTE | 2021-02-03 01:00 | NUR ---
VAP ORAL CARE RENDERED BY RT.
--- NOTE | 2021-02-03 03:27 | NUR ---
NO S/S RESPIRATORY DISTRESS. DENIES PAINS. PATIENT CLEAN/DRY. TURNED AND REPOSITIONED.
--- NOTE | 2021-02-03 05:55 | NUR ---
INCONTINENT CARE RENDERED. NO S/S RESPIRATORY DISTRESS. TRACH/ORAL CARE RENDERED. DENIES PAIN. ALL OTHER NEEDS ANTICIPATED AND MET.
[2021-02-03 06:13] LABS: BASOPHILS % (AUTO) 0.3 % (0.0-2.0); EOSINOPHILS # (AUTO) 0.1 K/uL (0-0.4); EOSINOPHILS % (AUTO) 1.3 % (0.0-4.0); HEMATOCRIT 26.2 % (36-52); HEMOGLOBIN 7.9 g/dL (12.0-18.0); LYMPHOCYTES # (AUTO) 1.1 K/uL (2.0-11.5); LYMPHOCYTES % (AUTO) 12.1 % (20.5-51.1); MEAN CORPUSCULAR HEMOGLOBIN 22 pg (27-31); MEAN CORPUSCULAR HGB CONC 30 g/dL (33-37); MEAN CORPUSCULAR VOLUME 71.4 fL (80-94); MONOCYTES # (AUTO) 0.9 K/uL (0.8-1.0); MONOCYTES % (AUTO) 9.7 % (1.7-9.3); NEUTROPHILS # (AUTO) 6.8 K/uL (1.8-7.7); NEUTROPHILS % (AUTO) 76.6 % (42.2-75.2); PLATELET COUNT (AUTO) 241 K/uL (140-450); RED BLOOD CELL COUNT(AUTO) 3.67 MIL/uL (4.20-6.10); RED CELL DISTRIBUTION WIDTH 20.6 % (11.6-13.7); WHITE BLOOD COUNT (AUTO) 8.9 K/uL (4.8-10.8)
[2021-02-03 06:23] LABS: ALBUMIN 1.6 g/dL (3.4-5.0); ANION GAP 12.9 (8-16); CARBON DIOXIDE 24.1 mmol/L (21-32); CREATININE 1.4 mg/dL (0.6-1.3); TOTAL BILIRUBIN 0.5 mg/dL (0.0-1.0)
--- NOTE | 2021-02-03 07:15 | NUR ---
Change of shift report received from Flaca RN at the bedside trach to ventilator a/c v/c Fio2 24% tolerating well, eyes open follows verbal command moves all extremities, non verbal answered all questions by gesticulations, denies pain and no sign of distress noted , vitals signs stable afebrile, NPO , NGT to left nares clamped for meds only, chest tube on the left upper axilla to water suction and alvarez to gravity. Oral care, suction via trach small aguillon secretions, ongoing education and support to alleviates anxiety as pt non verbal and will continue to trate as per care plan .
--- NOTE | 2021-02-03 07:18 | NUR ---
ENDORSED TO AM SHIFT NURSE FOR CONTINUITY OF CARE.
[2021-02-03] MEDS ORDERED: LACTULOSE 20 GM/30 ML UDC PO SCH (09:00)
[2021-02-03] MEDS: levETIRAcetam 100 MG/ML ORASYR GT SCH ×2 (09:14→21:00)
[2021-02-03] MEDS: ATORVASTATIN 20 MG TAB GT SCH (09:15)
--- NOTE | 2021-02-03 09:15 | NUR ---
Dr Escamilla was here updates on pt at the bedside AM labs potassium was 3.0 order received K rider 40meq IV
[2021-02-03] MEDS: amLODIPine 5 MG TAB GT SCH (09:16)
[2021-02-03] MEDS: FAMOTIDINE 20 MG TAB GT SCH (09:16)
[2021-02-03] MEDS: ASCORBIC ACID 500 MG TAB PO SCH ×2 (09:19→21:00)
[2021-02-03] MEDS: LACOSAMIDE 10 MG/ML PO SCH ×2 (09:20→21:00)
[2021-02-03] MEDS: METOPROLOL 25 MG TAB PO SCH ×2 (09:22→21:00)
[2021-02-03] MEDS: KCL 20 MEQ/WATER INJ PREMIX 100 ML IV SCH ×2 (09:48→13:11)
--- NOTE | 2021-02-03 10:45 | NUR ---
Dr Topete Meeting/Event Planner updates on pt's condition no new order received.
--- NOTE | 2021-02-03 11:25 | NUR ---
Dr Anthony Ocampo rounds updates on pt's condition and AM lab no new order received .
[2021-02-03] MEDS: MUPIROCIN CA NASAL 2% 1GM TUBE NS SCH (13:12)
[2021-02-03] MEDS: GAUZE TP SCH (13:13)
[2021-02-03] MEDS: THERAHONEY GEL 42.5 GM TP SCH (13:13)
--- NOTE | 2021-02-03 15:00 | NUR ---
@1430 Dr SHIRLEY's round there was a plan for GT placement, simon STEPHENSON cancelled it. Order received to restart tube feeding, via NGT order placed in the computer as per wood crafter recommendation VITAL AF @60ML/HR FREE WATER 130ML Q6HR also discussed with Ileana DARDEN
--- NOTE | 2021-02-03 17:20 | NUR ---
PT transfered to telemetry unit awake alert vitals signs stable no sign of distress noted no changes in pt's condition
--- NOTE | 2021-02-03 17:35 | NUR ---
moved pt to tele floor - bagged pt on bvm while sriram rt pushed vent - pt placed back on vent in new room. no distress noted.
--- NOTE | 2021-02-03 17:40 | NUR ---
RECEIVED PATIENT FROM ICU NURSE FOR CONTINUITY OF CARE. PT WAS STABLE DURING TRANSFER.
--- NOTE | 2021-02-03 17:40 | NUR ---
Report off to Anthony CANO for continuity of care at [facility]
[2021-02-03] MEDS: DEXT 5% /NACL 0.9% 1,000 ML IV SCH ×2 (18:12→21:01)
--- NOTE | 2021-02-03 19:25 | NUR ---
ENDORSED TO ENTRY LEVEL ACCOUNT EXECUTIVE NURSE FOR CONTINUITY OF CARE. PT IS STABLE.
--- NOTE | 2021-02-03 20:00 | NUR ---
PATIENT RECEIVED IN BED, ALERT AND ORIENTED X 1-2 RESTING IN BED TRACH TO VENT, FIO2 35% SATING AT 100%. SUCTIONING PREFORMED DUE TO COUGHING, MODERATE WHITE SECRETIONS REMOVED. PATENT SEEN AND EVALUATED BY RT. STAGE 4 SACRAL WOUND, DRESSING DRY AND INTACT. PEG TUBE IN PLACE, DRESSING OVER PEG TUBE SITE IS DRY AND INTACT. PT HAS A LEFT UPPER ARM 18G RUNNING D5NS @ 100ML. PT ON THE TELEMONITOR SHOWING SINUS TACH AT 102. ALL SAFETY MEASURES IN PLACE, CALL LIGHT WITHIN REACH. MAXIMAL CARE RENDERED BY STAFF. 2 PERSON ASSISTANCE. NO ACUTE DISTRESS NOTED, WILL CONTINUE WITH PLAN OF CARE. NO ACUTE DISTRESS NOTED.
[2021-02-03] MEDS: DOXAZOSIN 2 MG TAB GT SCH (21:00)
--- NOTE | 2021-02-03 22:48 | NUR ---
RN MESSAGED DR. GLEZ REGARDING ABNORMAL LAB RESULT REPORT PER PHARMACY SPUTUM CULTURE RESULTS POSITIVE SERRATIA MARCESCENS AT 2248 VIA PHONE. NO NEW ORDERS GIVEN AT THIS TIME. PATIENT HAS NO ACUTE DISTRESS NOTED.
[2021-02-04] VITALS (11 sets, daily range): BP systolic 94–138; BP diastolic 66–80
[2021-02-04] MEDS: PIPERACILLIN/TAZOBACTAM 3.375 GM in DEXTROSE 5% 50 ML IV SCH ×2 (03:30→05:54)
[2021-02-04 07:01] LABS: CARBON DIOXIDE 21.8 mmol/L (21-32); CREATININE 2.1 mg/dL (0.6-1.3)
[2021-02-04 07:04] LABS: BASOPHILS % (AUTO) 0.3 % (0.0-2.0); EOSINOPHILS # (AUTO) 0.1 K/uL (0-0.4); EOSINOPHILS % (AUTO) 1.5 % (0.0-4.0); HEMATOCRIT 27.2 % (36-52); HEMOGLOBIN 8.2 g/dL (12.0-18.0); LYMPHOCYTES # (AUTO) 0.8 K/uL (2.0-11.5); LYMPHOCYTES % (AUTO) 9.1 % (20.5-51.1); MEAN CORPUSCULAR HEMOGLOBIN 21 pg (27-31); MEAN CORPUSCULAR HGB CONC 30 g/dL (33-37); MEAN CORPUSCULAR VOLUME 71.4 fL (80-94); MONOCYTES # (AUTO) 0.6 K/uL (0.8-1.0); MONOCYTES % (AUTO) 6.2 % (1.7-9.3); NEUTROPHILS # (AUTO) 7.5 K/uL (1.8-7.7); NEUTROPHILS % (AUTO) 82.9 % (42.2-75.2); PLATELET COUNT (AUTO) 260 K/uL (140-450); RED BLOOD CELL COUNT(AUTO) 3.82 MIL/uL (4.20-6.10); RED CELL DISTRIBUTION WIDTH 20.7 % (11.6-13.7)
[2021-02-04 08:00] LABS: POTASSIUM 2.8 mmol/L (3.5-5.1)
[2021-02-04] MEDS: FAMOTIDINE 20 MG TAB GT SCH (09:00)
[2021-02-04] MEDS: ASCORBIC ACID 500 MG TAB PO SCH ×2 (09:00→22:46)
[2021-02-04] MEDS: levETIRAcetam 100 MG/ML ORASYR GT SCH ×2 (09:00→22:46)
[2021-02-04] MEDS: LACOSAMIDE 10 MG/ML PO SCH ×2 (09:00→21:00)
[2021-02-04] MEDS: ATORVASTATIN 20 MG TAB GT SCH (09:00)
[2021-02-04] MEDS ORDERED: POTASSIUM CHLORIDE 40 MEQ in NACL 0.9% 1,000 ML IV SCH (10:20)
[2021-02-04] MEDS ORDERED: POTASSIUM CHLORIDE 10 MEQ TABER PO SCH (10:23)
[2021-02-04] MEDS ORDERED: NACL 0.9% 500 ML IV SCH (10:30)
[2021-02-04] MEDS: DEXTROSE 5% 1,000 ML IV SCH (11:40)
[2021-02-04] MEDS: MIDODRINE 5 MG TAB NG SCH ×2 (12:02→18:35)
[2021-02-04] MEDS: PIPERACILLIN/TAZOBACTAM 2.25 GM in DEXTROSE 5% 50 ML IV SCH ×2 (12:22→18:34)
[2021-02-04] MEDS: GAUZE TP SCH (13:00)
[2021-02-04] MEDS: THERAHONEY GEL 42.5 GM TP SCH (13:00)
[2021-02-04] MEDS: MUPIROCIN CA NASAL 2% 1GM TUBE NS SCH (13:00)
--- NOTE | 2021-02-04 13:45 | NUR ---
02/04/21 RD FOLLOW UP COMPLETED PLEASE REFER TO NUTRITION PROGRESS NOTE UNDER CARE ACTIVITY FOR ESTIMATED NUTRITION NEEDS. RD RECOMMENDATIONS: 1. CONTINUE VITAL AF 1.2 @ 60 ML/HR; START AT 10 ML/HR ADVANCE BY 10 ML Q6H -THIS WILL PROVIDE 1728 KCAL/DAY AND 108 GM OF PROTEIN/DAY 2. CONTINUE DU BID TO PROMOTE WOUND HEALING 3. CONTINUE FREE WATER FLUSH OF [address] TO FOLLOW-UP 2-3 DAYS, HIGH RISK [place], RD
--- NOTE | 2021-02-04 19:00 | NUR ---
PATIENT RECEIVED IN BED, ALERT AND ORIENTED X 1-2 RESTING IN BED TRACH TO VENT, FIO2 35% SATING AT 100%. SUCTIONING PREFORMED DUE TO COUGHING, MODERATE WHITE SECRETIONS REMOVED. PATENT SEEN AND EVALUATED BY RT. STAGE 4 SACRAL WOUND, DRESSING DRY AND INTACT. PEG TUBE IN PLACE, DRESSING OVER PEG TUBE SITE IS DRY AND INTACT. PT HAS A LEFT UPPER ARM 18G RUNNING D5NS @ 100ML. PT ON THE CARDIAC MONITORING. FALL AND SAFETY PRECAUTIONARY MEASURES ONGOING. CALL LIGHT WITHIN REACH. MAXIMAL CARE RENDERED BY STAFF. 2 PERSON ASSISTANCE. NO ACUTE DISTRESS NOTED. WILL CONTINUE WITH PLAN OF CARE. NO ACUTE DISTRESS NOTED.
[2021-02-04] MEDS ORDERED: VANCOMYCIN PER PHARMACY MC PRN (22:40)
[2021-02-05] VITALS (8 sets, daily range): BP systolic 98–157; BP diastolic 72–86
[2021-02-05] MEDS ORDERED: VANCOMYCIN 1GM/DEXT 5% PREMIX 200 ML IV SCH
[2021-02-05] MEDS: MIDODRINE 5 MG TAB NG SCH ×4 (00:31→18:29)
[2021-02-05] MEDS: PIPERACILLIN/TAZOBACTAM 2.25 GM in DEXTROSE 5% 50 ML IV SCH ×4 (00:31→18:29)
[2021-02-05] MEDS ORDERED: VANCOMYCIN 1,000 MG VIAL ONE (01:05)
[2021-02-05] MEDS: DEXTROSE 5% 1,000 ML IV SCH ×2 (01:07→14:50)
[2021-02-05 06:35] LABS: BASOPHILS % (AUTO) 0.2 % (0.0-2.0); EOSINOPHILS # (AUTO) 0.1 K/uL (0-0.4); EOSINOPHILS % (AUTO) 0.7 % (0.0-4.0); HEMATOCRIT 24.5 % (36-52); HEMOGLOBIN 7.4 g/dL (12.0-18.0); LYMPHOCYTES # (AUTO) 0.8 K/uL (2.0-11.5); LYMPHOCYTES % (AUTO) 7.6 % (20.5-51.1); MEAN CORPUSCULAR HEMOGLOBIN 22 pg (27-31); MEAN CORPUSCULAR HGB CONC 30 g/dL (33-37); MEAN CORPUSCULAR VOLUME 71.7 fL (80-94); MONOCYTES # (AUTO) 0.6 K/uL (0.8-1.0); MONOCYTES % (AUTO) 6.1 % (1.7-9.3); NEUTROPHILS # (AUTO) 9.1 K/uL (1.8-7.7); NEUTROPHILS % (AUTO) 85.4 % (42.2-75.2); PLATELET COUNT (AUTO) 293 K/uL (140-450); RED BLOOD CELL COUNT(AUTO) 3.41 MIL/uL (4.20-6.10); RED CELL DISTRIBUTION WIDTH 20.7 % (11.6-13.7); WHITE BLOOD COUNT (AUTO) 10.6 K/uL (4.8-10.8)
[2021-02-05 06:51] LABS: MAGNESIUM 2.1 mg/dL (1.8-2.4); PHOSPHORUS 2.1 mg/dL (2.5-4.9)
[2021-02-05 06:52] LABS: ANION GAP 14.8 (8-16); CARBON DIOXIDE 21.1 mmol/L (21-32); CREATININE 1.9 mg/dL (0.6-1.3)
[2021-02-05 06:57] LABS: POTASSIUM 2.9 mmol/L (3.5-5.1)
--- NOTE | 2021-02-05 07:35 | NUR ---
PATIENT RECEIVED FROM BOTTLE BOOTH ATTENDANT, RN . PT RESTING IN BED. EYES CLOSED, BREATHING SYMMETRICAL , 02% 94 RT AT BEDSIDE.
[2021-02-05] MEDS: levETIRAcetam 100 MG/ML ORASYR GT SCH ×2 (08:07→21:00)
[2021-02-05] MEDS: ATORVASTATIN 20 MG TAB GT SCH (08:08)
[2021-02-05] MEDS: ASCORBIC ACID 500 MG TAB PO SCH ×2 (08:09→21:37)
[2021-02-05] MEDS: FAMOTIDINE 20 MG TAB GT SCH (08:09)
[2021-02-05] MEDS ORDERED: CRUSHER, PILL MC ONE (08:13)
[2021-02-05] MEDS: LACOSAMIDE 10 MG/ML PO SCH ×2 (09:00→21:40)
--- NOTE | 2021-02-05 09:00 | NUR ---
MEDICATIONS GIVEN PER MD ORDER. PT EDUCATED , PT UNABLE TO VERBALIZE UNDERSTANDING. CALL LIGHT WITHIN REACH , PT ABLE TO NOD YES AND NO. FLACC 0. ALL SAFETY MEASURES ARE IN PLACE
[2021-02-05] MEDS: POTASSIUM CHLORIDE 20% 40 MEQ/15 ML UDC NG SCH ×2 (09:39→12:34)
--- NOTE | 2021-02-05 11:25 | NUR ---
PT CHANGED, REPOSITIONED , PT TOLERATED WELL
--- NOTE | 2021-02-05 12:00 | NUR ---
PT REPOSITIONED, PT HAD ONE LARGE YELLOW LOOSE BM AT THIS TIME . PT RECHANGED 2 PERSON ASSIST
[2021-02-05] MEDS: MUPIROCIN CA NASAL 2% 1GM TUBE NS SCH (12:34)
--- NOTE | 2021-02-05 13:00 | NUR ---
MEDICATIONS GIVEN PER MD ORDER. PT EDUCATED , PT UNABLE TO VERBALIZE UNDERSTANDING. CALL LIGHT WITHIN REACHNO. FLACC 0.
[2021-02-05] MEDS: THERAHONEY GEL 42.5 GM TP SCH (13:01)
[2021-02-05] MEDS: GAUZE TP SCH (13:01)
--- NOTE | 2021-02-05 15:46 | NUR ---
PT RESTING IN BED FLACC 0, 02 % 98
--- NOTE | 2021-02-05 17:59 | NUR ---
MEDICATIONS GIVEN PER MD ORDER. PT EDUCATE Cleo
--- NOTE | 2021-02-05 18:20 | NUR ---
RAFITA CHANGED REPOSITIONED , ONE LARGE BM YELLOW LOSE
--- NOTE | 2021-02-05 19:18 | NUR ---
PT ENDORSED TO AIRPORT ENGINEER RN FOR CONTINUITY OF CARE. ALL SAFETY MEASURES AR EIN PLACE
--- NOTE | 2021-02-05 19:19 | NUR ---
TOTAL OUTPUT CHEST TUBE 120 ML
--- NOTE | 2021-02-05 20:00 | NUR ---
PATIENT WAS RECEIVED IN BED ALERT AND AWAKE, ON VENT, PEG TUBE FEEDING VITAL 1.2 AT 60 ML/HOUR.
--- NOTE | 2021-02-05 21:00 | NUR ---
ALL DUE MEDICATIONS WERE GIVEN.
--- NOTE | 2021-02-05 22:00 | NUR ---
TEMP WAS 103 F, RN GOT AN ORDER FOR NORCO AND TYLENOL FOR MODERATE PAIN AND TEMP> 100 F., NORCO WAS GIVEN BECAUSE THE HR WAS ELEVATED AT 138, AND TYLENOL WAS ALSO GIVEN TO RELIEVE FEVER AND HELP LOWER DOWN THE HR
[2021-02-06] VITALS (10 sets, daily range): BP systolic 103–145; BP diastolic 68–84
--- NOTE | 2021-02-06 | NUR ---
HR SLOWLY RESOLVING AT 129 B/MIN
[2021-02-06] MEDS: PIPERACILLIN/TAZOBACTAM 2.25 GM in DEXTROSE 5% 50 ML IV SCH ×5 (00:42→23:48)
[2021-02-06] MEDS: HYDROcodone/APAP 5/325 MG 1 TAB TAB PO PRN ×2 (01:17→14:38)
--- NOTE | 2021-02-06 02:00 | NUR ---
PATIENT WAS ASLEEP
[2021-02-06] MEDS ORDERED: ACETAMINOPHEN 650 MG/20.3 ML UDC ONE (03:14)
[2021-02-06] MEDS: DEXTROSE 5% 1,000 ML IV SCH (03:40)
[2021-02-06] MEDS: MIDODRINE 5 MG TAB NG SCH ×5 (06:00→23:48)
[2021-02-06 06:09] LABS: BASOPHILS % (AUTO) 0.3 % (0.0-2.0); EOSINOPHILS % (AUTO) 0.2 % (0.0-4.0); HEMATOCRIT 27.8 % (36-52); HEMOGLOBIN 8.2 g/dL (12.0-18.0); LYMPHOCYTES # (AUTO) 0.9 K/uL (2.0-11.5); LYMPHOCYTES % (AUTO) 5.3 % (20.5-51.1); MEAN CORPUSCULAR HEMOGLOBIN 21 pg (27-31); MEAN CORPUSCULAR HGB CONC 30 g/dL (33-37); MEAN CORPUSCULAR VOLUME 71.6 fL (80-94); MONOCYTES # (AUTO) 0.8 K/uL (0.8-1.0); MONOCYTES % (AUTO) 4.8 % (1.7-9.3); NEUTROPHILS # (AUTO) 15.2 K/uL (1.8-7.7); NEUTROPHILS % (AUTO) 89.4 % (42.2-75.2); PLATELET COUNT (AUTO) 319 K/uL (140-450); RED BLOOD CELL COUNT(AUTO) 3.89 MIL/uL (4.20-6.10); RED CELL DISTRIBUTION WIDTH 20.5 % (11.6-13.7)
[2021-02-06 06:45] LABS: ALBUMIN 1.7 g/dL (3.4-5.0); ANION GAP 18.2 (8-16); CARBON DIOXIDE 20.9 mmol/L (21-32); CREATININE 1.9 mg/dL (0.6-1.3); MAGNESIUM 1.9 mg/dL (1.8-2.4); PHOSPHORUS 1.5 mg/dL (2.5-4.9); POTASSIUM 3.1 mmol/L (3.5-5.1); TOTAL BILIRUBIN 0.4 mg/dL (0.0-1.0)
--- NOTE | 2021-02-06 07:24 | NUR ---
RECEIVED TRACH PT ON VENT WITH A PORTEX 7 TRACH. VENT SETTINGS PRVC 16, VT 450, PEEP TURNED OFF PER VALET CASHIER NOTES AND FIO2 40%. PT SUCTIONED OBTAINED LARGE AMOUNT OF PALE YELLOW SECRETIONS, AIRWAY IS PATENT AND TRACH IS SECURE. VENT ALARMS ON AND FUNCTIONING. WILL CONTINUE TO MONITOR.
--- NOTE | 2021-02-06 08:11 | NUR ---
ALL REPORTS WERE GIVEN TRANSFER OF CARE ENDORSED.
--- NOTE | 2021-02-06 08:11 | NUR ---
RECIEVED REPORT FROM STATION CHIEF NURSE ,PATIENT RECEIVED IN BED, A X0 RESTING IN BED TRACH TO VENT, FIO2 40% SATING AT 100%. . STAGE 4 SACRAL WOUND, DRESSING DRY AND INTACT. PEG TUBE IN PLACE, DRESSING OVER PEG TUBE SITE IS DRY AND INTACT. PT HAS A LEFT FOREARM 20G RUNNING D5 @ 100ML. PT ON THE TELEMONITOR SHOWING SINUS TACH . PT HAS CHECT TUBE, WATER SEAL. DRAINED 30 HI LAST NIGHT AND 760 IN TOTAL. ALL SAFETY MEASURES IN PLACE, CALL LIGHT WITHIN REACH. MAXIMAL CARE RENDERED BY STAFF. 2 PERSON ASSISTANCE. NO ACUTE DISTRESS NOTED, WILL CONTINUE WITH PLAN OF CARE. NO ACUTE DISTRESS NOTED
[2021-02-06] MEDS: ASCORBIC ACID 500 MG TAB PO SCH ×2 (09:12→21:25)
[2021-02-06] MEDS: ATORVASTATIN 20 MG TAB GT SCH (09:12)
[2021-02-06] MEDS: FAMOTIDINE 20 MG TAB GT SCH (09:12)
[2021-02-06] MEDS: levETIRAcetam 100 MG/ML ORASYR GT SCH ×2 (09:13→21:24)
[2021-02-06] MEDS ORDERED: NACL 0.9% 1,000 ML IV SCH ×2 (09:25→18:30)
[2021-02-06] MEDS: LACOSAMIDE 10 MG/ML PO SCH ×2 (09:41→21:26)
--- NOTE | 2021-02-06 09:43 | NUR ---
PT IN BED NO SOD NOTED, GOT MORNING G MEDICATION, SODUIM LEVEL 149 POTASSIUM 3.[address] GLADYS AVILA, ASKED TO GIVE D5% 500 ML BOLUS. AND ASKED TO HOLD TUBE FEEDING, ORDER CARRIED OUT
[2021-02-06] MEDS ORDERED: DEXTROSE 5% 500 ML IV SCH (10:20)
[2021-02-06] MEDS ORDERED: POTASSIUM PHOSPHATE 15 MM in NACL 0.9% 250 ML IV SCH (12:00)
--- NOTE | 2021-02-06 12:16 | NUR ---
DR Franky CRUZ. CLAMP THE PT CHEST TUBE, AND ORDER CHEST X RAY AT 1400, ALSO ORDER POTASSUIM THROUGHKEI MAZARIEGOS NOTED, ALL SAFETY MEASURES ON PLACE
[2021-02-06] MEDS ORDERED: fentaNYL citrate 0.05 MG/ML VIAL ONE (12:17)
[2021-02-06] MEDS ORDERED: MIDAZOLAM 5 MG/5 ML VIAL ONE (12:17)
[2021-02-06] MEDS ORDERED: diphenhydrAMINE 50 MG/ML VIAL ONE (12:17)
[2021-02-06] MEDS ORDERED: POTASSIUM CHLORIDE 20% 40 MEQ/15 ML UDC NG SCH (12:30)
[2021-02-06] MEDS: fentaNYL citrate 0.05 MG/ML VIAL IVP ONE ×2 (12:40→14:37)
[2021-02-06] MEDS: MIDAZOLAM 2 MG/2 ML VIAL IVP ONE ×2 (12:41→14:37)
--- NOTE | 2021-02-06 12:54 | NUR ---
PATIENT VENT PEEPING CALL RT, RT CAME AND CHECK THE PATIENT. DR SHIRLEY NEXT TO PATIENT BED PERFORMING PEG PLACEMENT, ALL SAFETY MEASURES ON PLACE .
[2021-02-06] MEDS: MUPIROCIN CA NASAL 2% 1GM TUBE NS SCH (13:00)
--- NOTE | 2021-02-06 13:12 | NUR ---
PT IN BED NO SOD NOTED,PEG WAS PLACED DR SHIRLEY ASK TO START USING IT FOR FEEDING AND MEDICATION, PATIENT STable at this time all safety measures on place calls light within rech
[2021-02-06] MEDS: THERAHONEY GEL 42.5 GM TP SCH (13:22)
[2021-02-06] MEDS: GAUZE TP SCH (13:22)
--- NOTE | 2021-02-06 13:36 | NUR ---
DR AMARIS CASTORENA ASKED TO INSERET FOELY CATHETER TO COLLECT URINE CULTURE
--- NOTE | 2021-02-06 13:37 | NUR ---
X RAY GETTING DONE AT THIS TIME
--- NOTE | 2021-02-06 15:22 | NUR ---
[ATIENT HEART RATE ELEVATED 130, 135, [address] AMADOU CASTORENA, HE REPLY THAT THIS HIGH HEART RATE MIGHT BE BECAUSE OF INFECTION AND NO CHANGE IN ORDER FOR NOW
--- NOTE | 2021-02-06 15:50 | NUR ---
PT SAT % IS 89, INFORMED DR MERRILL ABOUT SAT LEVEL AND CHEST X RAY RESULT, WAITING FOR HIS RESPONSE.RT DID SUCTION AND CHECK THE PATIENT, ALSO COLLECTED SPUTUM CULTURE. ALL SAFETY MEASURES ON PLACE CALLS LIGHT WITHIN REACH
--- NOTE | 2021-02-06 15:59 | NUR ---
CALLED BEDSIDE FOR PT DESATURATING. WHEN ARRIVED PT TACHYPNEIC AND TACHYCARDIC. HR 130'S, SPO2 84%, FIO2 INCREASED TO 50%. NURSE AWARE OF PT STATUS. PT SUCTIONED OBTAINED LARGE AMOUNT OF THIN MELISSA SECRETIONS.
--- NOTE | 2021-02-06 16:12 | NUR ---
DR MERRILL ASKED TO UNCLAMPED CHEST TUBE, ORDER CARRRIED OUT, CHEST TUBE DREESSING WAS CHANGED BY NURSE AMAYA, PT SAT LEVEL WENT UP TO 98%, AL SAFETY MEASURES ON PLACE CALLS LIGHT WITHIN REACH
--- NOTE | 2021-02-06 16:33 | NUR ---
FIO2 INCREASED FROM 50% TO 60% DUE TO SPO2 85%. NURSE MADE AWARE. PT SUCTIONED FOR LARGE AMOUNT OF MELISSA SECRETIONS.
--- NOTE | 2021-02-06 18:27 | NUR ---
PT HEART RATE IS 155-[address] GLADYS NICOLE THE SLOT MACHINE MECHANIC, AS[facility] ALSO INFORMED CHARGE NURSE ORQUIDEA , RT WAS CALLED TO CHECK VENTILATION MACHINE, ALL SAFETY MESURES ON PLACE CALLS LIGHT WITHIN REACH Addendum: 02/06/21 at 1833 by Uche Zafar RN RN DR GLADYS AVILA WAS GIVEN UPDATE ABOUT PATIENT SITUATION, AND PROCEDURE AND TEST THAT WAS DONE TODAY
--- NOTE | 2021-02-06 18:30 | NUR ---
PT HEART RATE STILL HIGH PT TEMP. 102.4 PT GOT MEDICATED MD AVENDAÑO, ALSO GOT COLD COMPERES, DR GLADYS AVILES WAS CALLED, AND INFORMED OF HIGH HEART RATE AND TEMP. Addendum: 02/06/21 at 2036 by Uche Zafar RN RN CHEST TUBE BOX WAS CHANGED BY NURSE CONDE
[2021-02-06] MEDS: ACETAMINOPHEN 325 MG TAB PO PRN (18:44)
--- NOTE | 2021-02-06 19:35 | NUR ---
PT HEART RATE STILL HIGH 150 BLOOD PRESSURE 127/68 SAT 98 , CALLED DR GLADYS AVILA, ASKED TO TRANSFER TO ICU, ICU NURSE GOT FULL REPORT WELL CLINICAL EDUCATION SPECIALIST NURSE JUVENTINO , PT WILL BE TRANSFERRED TO ICU
--- NOTE | 2021-02-06 20:00 | NUR ---
RECEIVED PT FROM TELE.TRANSFERRED TO BED.PT AWAKE AND ABLE TO FOLLOW SIMPLE COMMANDS,NODS/SHAKES HEAD TO QUESTIONS.ST NOTED ON MONITOR.TRACH TO VENT AC PRVC FIO2 60% TV450 RATE 16 PEEP 5.PERIPHERAL IV G22 TO RT WRIST INTACT INFUSING NS BOLUS 1 LITER. W/ G TUBE CLAMPED.WILL CALL MD IF FEEDING WILL BE RESTARTED TONIGHT.PT INCONTINENT OF URINE.EDEMA TO LORA ALSO NOTED WITH BLISTER.W/LT CHEST TUBE TO GRAVITY,DRESSING CHANGED, 10ML YELLOWISH OUTPUT NOTED AT THIS TIME.W/PRESSURE ULCER TO SACROCOCCYGEAL AREA NOTED.WILL APPLY DRESSING.NO DRESSING NOTED AT THIS TIME.PT DENIES PAIN WHEN ASKED Addendum: 02/06/21 at 2311 by Kymberly Burgess RN TEMP 100.1; CONTINUOUS COOLING MEASURES RENDERED
--- NOTE | 2021-02-06 20:31 | NUR ---
1849 RECEIVED PATIENT ON VENT. PATIENT WAS BREATHING RAPIDLY AROUND 40 BPM. INCREASED ITIME TO 1.2 TO MEET THE DEMANDS OF HIS BREATHING. PATIENT HAS HIGH HEART RATE.
--- NOTE | 2021-02-06 20:33 | NUR ---
2020 TRANSFERRED PT TO ICU BED 1.
--- NOTE | 2021-02-06 22:00 | NUR ---
TEMP RECHECKED 99.6; PT STILL DENYING ANY PAIN.REPOSITIONED.
[2021-02-07] VITALS (26 sets, daily range): BP systolic 99–146; BP diastolic 51–88
--- NOTE | 2021-02-07 | NUR ---
ORAL CARE USING VAP KIT RENDERED,AFEBRILE.TEMP 99.5; REPOSITIONED
--- NOTE | 2021-02-07 02:29 | NUR ---
BM NOTED; LARGE AMT OF LIQUID TO SOFT STOOL,BROWNISH IN COLOR.PT CLEANED. CONDOM CATHETER IN PLACE; PT INCONTINENT OF URINE.
--- NOTE | 2021-02-07 04:00 | NUR ---
RESIDUALS CHECKED; 150ML; TUBE FEEDING ON HOLD FOR NOW.
--- NOTE | 2021-02-07 05:35 | NUR ---
MORNING CARE DONE.BM NOTED AGAIN, SOFT TO WATERY YELLOWISH STOOL NOTED.REPOSITIONED.DENIES PAIN
[2021-02-07] MEDS: PIPERACILLIN/TAZOBACTAM 2.25 GM in DEXTROSE 5% 50 ML IV SCH ×3 (06:00→18:54)
[2021-02-07] MEDS: MIDODRINE 5 MG TAB NG SCH ×3 (06:00→18:54)
[2021-02-07 06:11] LABS: HEMATOCRIT 24.6 % (36-52); HEMOGLOBIN 7.2 g/dL (12.0-18.0); MEAN CORPUSCULAR HEMOGLOBIN 21 pg (27-31); MEAN CORPUSCULAR HGB CONC 29 g/dL (33-37); MEAN CORPUSCULAR VOLUME 72.5 fL (80-94); PLATELET COUNT (AUTO) 302 K/uL (140-450); RED BLOOD CELL COUNT(AUTO) 3.39 MIL/uL (4.20-6.10); RED CELL DISTRIBUTION WIDTH 20.5 % (11.6-13.7)
[2021-02-07 06:27] LABS: ANION GAP 13.8 (8-16); CARBON DIOXIDE 24.3 mmol/L (21-32); CREATININE 1.7 mg/dL (0.6-1.3); POTASSIUM 4.1 mmol/L (3.5-5.1)
[2021-02-07 06:32] LABS: MAGNESIUM 1.7 mg/dL (1.8-2.4); PHOSPHORUS 3.8 mg/dL (2.5-4.9)
--- NOTE | 2021-02-07 07:15 | NUR ---
RECEIVED ON A [employer] 860 VENTILATOR PLUGGED INTO RED OUTLET TOLERATING WELL WITHOUT ADVERSE REACTIONS NOTED TO A PORTEX DFEN#7 AIRWAY SECURED WITH A PABLITO TRACH TIE CUFF [id number] CHECKED NOTED CHEST TUBE TO LEFT SIDE AMBU BAG NOTED AT BEDSIDE LOC ASLEEP EASILY AWAKENS GOOD CHEST RISE DEEP TRACHEAL SUCTION FOR LARGE THIN YELLOW/GREEN SECRETIONS AIRWAY PATENT SATURATION 100% ON FIO2 OF 50% PEEP 5cmH2O TITRATED FIO2 TO 40% VICK/RN NOTIFIED
--- NOTE | 2021-02-07 07:20 | NUR ---
RECEIVED REPORT FROM JAM PT SLEEPINGIN BED WITH HOB UO 30 DEGREE. HE IS TRACH TO VENT , IV ON RT ARN INFUSINF NE TO KVD THE SITE IS DRY AND INTACT CONDOM CATH DRAIN CLEAR YELLOW URINE.
[2021-02-07 07:43] LABS: LYMPHOCYTES % (MANUAL) 3 % (20-46); MONOCYTES % (MANUAL) 7 % (5-12)
[2021-02-07] MEDS: LACOSAMIDE 10 MG/ML PO SCH ×2 (09:00→21:56)
[2021-02-07] MEDS: ASCORBIC ACID 500 MG TAB PO SCH ×2 (09:21→21:55)
[2021-02-07] MEDS: ATORVASTATIN 20 MG TAB GT SCH (09:21)
[2021-02-07] MEDS: levETIRAcetam 100 MG/ML ORASYR GT SCH ×2 (09:21→21:55)
[2021-02-07] MEDS: FAMOTIDINE 20 MG TAB GT SCH (09:21)
--- NOTE | 2021-02-07 10:46 | NUR ---
NO DISTRESS NOTED EQUAL CHEST RISE GOOD AERATION THROUGHOUT BILATERAL LUNG PARISH AIRWAY PATENT SATURATION 99% ON FIO2 OF 40% PEEP 5cmH2O TITRATED FIO2 TO 35% VICK/RN NOTIFIED
[2021-02-07] MEDS ORDERED: VANCOMYCIN 1,000 MG in DEXTROSE 5% 250 ML IV SCH ×4 (11:00)
--- NOTE | 2021-02-07 11:30 | NUR ---
SEEBN BY DR MERRILL NO NEW ORDER RECEIVED
--- NOTE | 2021-02-07 12:02 | NUR ---
SEEN BY DR. BREWSTER ORDER RECEIVED. HE CLAMP THE CHEST TUBE UNTIL FURTHER NOTICF. TO HAVE CHEST X.RAY AT 1700PM.
[2021-02-07] MEDS ORDERED: MAG SULF 2000 MG/WATER PREMIX 50 ML IV SCH (12:15)
[2021-02-07] MEDS: THERAHONEY GEL 42.5 GM TP SCH (13:00)
--- NOTE | 2021-02-07 13:41 | NUR ---
NO SOB NOTED EQUAL CHEST RISE GOOD AERATION THROUGHOUT BILATERAL L;EREN PARISH AIRWAY PATENT SATUARTION 99% ON FIO2 OF 35% PEEP 5cmH2O TITRATED FIO2 TO 30% VICK/RN NOTIFIED
[2021-02-07] MEDS: GAUZE TP SCH (14:00)
--- NOTE | 2021-02-07 14:02 | NUR ---
02/07/21 RD FOLLOW UP COMPLETED PLEASE REFER TO NUTRITION ASSESSMENT UNDER CARE ACTIVITY FOR ESTIMATED NUTRITIONAL NEEDS. 1. CONTINUE VITAL AF 1.2 @ 60 ML/HR; START AT 10 ML/HR ADVANCE BY 10 ML Q6H -THIS WILL PROVIDE 1728 KCAL/DAY AND 108 GM OF PROTEIN/DAY 2. CONTINUE DU BID TO PROMOTE WOUND HEALING 3. CONTINUE FREE WATER FLUSH OF 250 ML Q6H OR PER MD 4. RD TO FOLLOW-UP 2-3 DAYS, HIGH RISK ALYCE PLUMMER RD
--- NOTE | 2021-02-07 15:40 | NUR ---
RESTING COMFORTABLY NO SOB NOTED GOOD CHEST RISE AIRWAY PATENT
--- NOTE | 2021-02-07 16:45 | NUR ---
CHEST X-RAY DONF ORDERED.
--- NOTE | 2021-02-07 17:00 | NUR ---
SEEN BY DR. PEREZ , NO NEW ORDER RECEIVED,
[2021-02-07] MEDS ORDERED: VANCOMYCIN PER PHARMACY MC PRN (18:05)
--- NOTE | 2021-02-07 19:15 | NUR ---
RECEIVED REPORT FROM DAY SHIFT RN, ASSUMED CARE. PATIENT SLEEPING IN BED COMFORTABLY, DENIED ANY PAIN AT THE MOMENT, DENIED SOB. TRACHEOSTOMY IN PLACE WITH PRVC SETTINGS, 450 TV, RATE 16, PEEP 5 AND FI02 30. PATIENT ALERT TO NAME, FOLLOWS SIMPLE COMMANDS, AND NODS HEAD TO QUESTIONS. VITAL AF 1.2 RUNNING VIA PEG TUBE AT 40 ML/HR. CONDOM CATHETER IN PLACE. CHEST TUBE CLAMPED PER ORDERS. IV SITE ABOVE RIGHT WRIST 20 GAUGE RUNNING NS, IV SITE DRY AND INTACT WITH NO INFILTRATION NOTED. ALL SAFETY MEASURES IN PLACE, WILL CONTINUE WITH POC.
--- NOTE | 2021-02-07 19:30 | NUR ---
PT SLEEPING V?S WITH IN NORMAL LIMIT.,REPORT GIVE TO JAM RN FOR CONTINUE CARE.
--- NOTE | 2021-02-07 20:35 | NUR ---
CONTACTED PATIENT'S NIECE DECLAN HU TO NOTIFY HER OF PATIENT TRANSFER LATER TONIGHT TO [facility] TELE ROOM 123. NIECE WAS NOTIFIED AND MADE AWARE.
--- NOTE | 2021-02-07 21:40 | NUR ---
2100 MEDICATIONS ADMINISTERED ORDERED. PATIENT IN NO APPARENT ACUTE DISTRESS. ALL SAFETY MEASURES IN PLACE, WILL CONTINUE WITH POC.
[2021-02-07] MEDS ORDERED: CRUSHER, PILL MC ONE (21:47)
--- NOTE | 2021-02-07 23:30 | NUR ---
RECEIVED PATIENT FROM ICU. REPORT GIVEN BY [facility] ICU NURSE. PATIENT IS AWAKE, NON VERBAL, TRACH TO VENT. ID/VC SETTING WITH TIDAL VOLUME 450 R-16 PEEP - 5, FIO2 -30. NO S/S OF RESPIRATORY DISTRESS. RESPIRATION REGULAR NON LABORED. SKIN WARM AND DRY TO TOUCH. WITH CONDOM CATHETER DRAINING CLEAR YELLOW URINE. ALL SAFETY PRECAUTIONS ARE IN PLACE. WILL CONTINUE TO MONITOR.
--- NOTE | 2021-02-07 23:30 | NUR ---
TRANSFERRED PATIENT TO [facility] ROOM 123, ACCOMPANIED BY CHARGE NURSE JAM AND RT. PATIENT IN NO ACUTE DISTRESS AT TIME OF TRANSFER. ENDORSED CARE TO [facility] NURSE AYE CANO. MEDICATIONS TAKEN AND GIVEN TO [facility] NURSE.
--- NOTE | 2021-02-07 23:38 | NUR ---
PT TRANSPORTED FROM ICU 1 TO 123 & PT TOLERATED WELL VENT PLUGGED INTO RED OUTLET W/ ALARMS ON AND AUDIBLE AMBU WAS PLACED AT BEDSIDE WILL CONTINUE TO MONITOR
[2021-02-08] VITALS: BP 121/78
[2021-02-08 04:00] VITALS: BP 106/61
[2021-02-08] MEDS ORDERED: MEROPENEM 1,000 MG in NACL 0.9% 100 ML IV SCH (05:00)
[2021-02-08] MEDS: MIDODRINE 5 MG TAB NG SCH ×4 (05:59→12:49)
[2021-02-08 06:18] LABS: CARBON DIOXIDE 23.8 mmol/L (21-32); CREATININE 1.5 mg/dL (0.6-1.3)
[2021-02-08 06:24] LABS: HEMATOCRIT 22.1 % (36-52); MEAN CORPUSCULAR HEMOGLOBIN 21 pg (27-31); MEAN CORPUSCULAR HGB CONC 30 g/dL (33-37); MEAN CORPUSCULAR VOLUME 70.5 fL (80-94); PLATELET COUNT (AUTO) 278 K/uL (140-450); RED BLOOD CELL COUNT(AUTO) 3.13 MIL/uL (4.20-6.10); RED CELL DISTRIBUTION WIDTH 20.5 % (11.6-13.7); WHITE BLOOD COUNT (AUTO) 16.3 K/uL (4.8-10.8)
[2021-02-08 06:25] LABS: POTASSIUM 2.8 mmol/L (3.5-5.1)
--- NOTE | 2021-02-08 06:25 | NUR ---
RECEIVED A CALL FROM [facility] (LAB) REPORTING CRITICAL LAB RESULTS OF POTASSIUM 2.8. CALLED TO DR. RENETTA GLEZ AT 0645 WITH NEW ORDERS MADE AND CARRIED OUT.
--- NOTE | 2021-02-08 07:30 | NUR ---
ENDORSED PATIENT TO AM NURSE FOR CONTINUITY OF CARE. PT IS STABLE.
[2021-02-08 07:50] LABS: HEMOGLOBIN 6.6 g/dL (12.0-18.0)
[2021-02-08 07:54] LABS: LYMPHOCYTES % (MANUAL) 6 % (20-46); MONOCYTES % (MANUAL) 4 % (5-12)
[2021-02-08 08:00] VITALS: BP 106/61
--- NOTE | 2021-02-08 08:00 | NUR ---
RECEIVED REPORT FROM BEAD TRIMMER NURSE. PT STABLE. NO S/S OF DISTRESS. BREATHING IS SYMMETRICAL. VENT IS IN CORRECT SETTINGS. IV AND FEEDING RUNNING PER MD ORDERS. IV IS PATENT.CALL LIGHT IN REACH. ALL SAFETY MEASURES IN PLACE.
[2021-02-08 08:27] LABS: MAGNESIUM 2.2 mg/dL (1.8-2.4); PHOSPHORUS 2.4 mg/dL (2.5-4.9)
[2021-02-08] MEDS ORDERED: POTASSIUM CHLORIDE 40 MEQ, LIDOCAINE MPF 1% 25 MG in NACL 0.9% 250 ML IV SCH (08:30)
[2021-02-08] MEDS: MEROPENEM 1,000 MG in NACL 0.9% 100 ML IV SCH ×2 (09:00→21:00)
[2021-02-08] MEDS: LACOSAMIDE 10 MG/ML PO SCH ×2 (09:00→21:00)
--- NOTE | 2021-02-08 09:00 | NUR ---
HEPARIN WAS NOT GIVEN DUE TO A LOW HGB OF 6.6 PER LAB RESULTS; POSSIBLE BLEEDING.
--- NOTE | 2021-02-08 09:00 | NUR ---
ALL MEDS GIVEN PER MD ORDER EXCEPT FOR HEPARIN. PT IS STABLE. WILL CONTINUE TO MONITOR.
--- NOTE | 2021-02-08 09:05 | NUR ---
IV MEDS GIVEN. STARTED A SECOND IV LINE. MEDS ARE COMPATIBLE. PT IS STABLE. WILL CONTINUE TO MONITOR.
--- NOTE | 2021-02-08 09:10 | NUR ---
PT HAS RESIDUAL OF 70ML, TOLERATING FEEDING. MEDS WERE GIVEN AND WATER FLUSHED WELL. PT IS STABLE. WILL CONTINUE TO MONITOR.
[2021-02-08] MEDS: levETIRAcetam 100 MG/ML ORASYR GT SCH ×2 (10:46→21:00)
[2021-02-08] MEDS: ASCORBIC ACID 500 MG TAB PO SCH ×2 (10:46→21:00)
[2021-02-08] MEDS: FAMOTIDINE 20 MG TAB GT SCH (10:46)
[2021-02-08] MEDS: FLUCONAZOLE 100 MG TAB GT SCH (10:46)
[2021-02-08] MEDS: POTASSIUM CHLORIDE 20% 40 MEQ/15 ML UDC GT SCH ×2 (10:47→12:49)
[2021-02-08] MEDS: ATORVASTATIN 20 MG TAB GT SCH (10:54)
[2021-02-08 12:00] VITALS: BP 106/61
[2021-02-08] MEDS: THERAHONEY GEL 42.5 GM TP SCH (12:49)
[2021-02-08] MEDS: GAUZE TP SCH (12:49)
--- NOTE | 2021-02-08 12:50 | NUR ---
SCHEDULED MEDICATIONS DUE GIVEN. WILL CONTINUE TO MONITOR.
[2021-02-08] MEDS: SODIUM FERRIC GLUCONATE 125 MG in NACL 0.9% 100 ML IV SCH (14:00)
[2021-02-08 20:00] VITALS: BP 134/80
[2021-02-09] VITALS: BP 131/88
--- NOTE | 2021-02-09 02:13 | NUR ---
PATIENT AWAKE UNABLE TO TALK HAS TRACH TO VENT RATE 16, TV 450 FI02 30 %, PEEP 5. SAT 96%. LUNGS DIMINISH TO LISTEN ON MONITOR SINUS TACH 103 HEART RATE. HAS RIGHT WRIST 20 GA. HAS G-TUBE VITAL A.F 60 HOUR. PATIENT IN ISOLATION FOR MRSA OF NARES. PATIENT HAS LEFT CHEST TUBE INTACT CLAMPED NO PNEUMOTHORAX. DR. MERRILL WANTS ANOTHER CHEST X-RAY IN A.M. THEN WILL TAKE CHEST TUBE OUT IF NO PNEUMOTHORAX STILL. PATIENT HAS CONDOM CATH DRAINING WELL. SUCTION PATIENT CHANGE TRACH DRSG. NO DISTRESS NOTED
[2021-02-09 04:00] VITALS: BP 149/79
[2021-02-09] MEDS: MIDODRINE 5 MG TAB NG SCH ×4 (05:54→18:00)
[2021-02-09 06:05] LABS: PHOSPHORUS 1.6 mg/dL (2.5-4.9)
[2021-02-09 06:18] LABS: BASOPHILS % (AUTO) 0.2 % (0.0-2.0); EOSINOPHILS % (AUTO) 0.3 % (0.0-4.0); HEMATOCRIT 28.1 % (36-52); HEMOGLOBIN 8.6 g/dL (12.0-18.0); LYMPHOCYTES # (AUTO) 1.3 K/uL (2.0-11.5); LYMPHOCYTES % (AUTO) 7.9 % (20.5-51.1); MEAN CORPUSCULAR HEMOGLOBIN 22 pg (27-31); MEAN CORPUSCULAR HGB CONC 31 g/dL (33-37); MEAN CORPUSCULAR VOLUME 72.6 fL (80-94); MONOCYTES # (AUTO) 0.7 K/uL (0.8-1.0); MONOCYTES % (AUTO) 4.5 % (1.7-9.3); NEUTROPHILS # (AUTO) 14.1 K/uL (1.8-7.7); NEUTROPHILS % (AUTO) 87.1 % (42.2-75.2); PLATELET COUNT (AUTO) 351 K/uL (140-450); RED BLOOD CELL COUNT(AUTO) 3.87 MIL/uL (4.20-6.10); RED CELL DISTRIBUTION WIDTH 21.3 % (11.6-13.7); WHITE BLOOD COUNT (AUTO) 16.2 K/uL (4.8-10.8)
--- NOTE | 2021-02-09 07:15 | NUR ---
RECEIVED REPORT FROM MANAGER SALES AND MARKETING NURSE FOR CONTINUITY OF CARE. PATIENT IS IN BED AT THIS TIME, RESTING. HE IS TRACH TO VENT, RESPIRATIONS ARE EVEN AND UNLABORED 16, SAT 95%. NO SIGNS OF DISTRESS NOTED. PATIENT HAS CHEST TUBE IN PLACE, CLAMPED. CHEST TUBE IS PATIENT. PATIENT HAS G TUBE IN PLACE, IT IS INTACT AND PATIENT. PATIENT HAS IV TO RIGHT WRIST, 20G, INTACT AND PATENT. IV IS SALINE LOCKED. CALL LIGHT WITHIN REACH. BED IS IN LOWEST POSITION. ALL SAFETY MEASURES IN PLACE.
[2021-02-09 08:00] VITALS: BP 126/93
[2021-02-09 08:43] LABS: ANION GAP 12.1 (8-16); CARBON DIOXIDE 24.3 mmol/L (21-32); CREATININE 1.4 mg/dL (0.6-1.3); POTASSIUM 3.4 mmol/L (3.5-5.1)
[2021-02-09] MEDS ORDERED: POTASSIUM CHLORIDE 20% 40 MEQ/15 ML UDC GT SCH (09:30)
--- NOTE | 2021-02-09 09:30 | NUR ---
DID ROUNDS ON PATIENT. PATIENT IN BED AT THIS TIME. NO SIGNS OF DISTRESS NOTED. RESPIRATIONS EVEN AND UNLABORED. FAMILY AT BEDSIDE. DR AT BEDSIDE WELL. DR DISCUSS PLAN OF CARE WITH PATIENT AND FAMILY.
[2021-02-09] MEDS: FAMOTIDINE 20 MG TAB GT SCH (10:03)
[2021-02-09] MEDS: FLUCONAZOLE 100 MG TAB GT SCH (10:03)
[2021-02-09] MEDS: ASCORBIC ACID 500 MG TAB PO SCH ×2 (10:03→21:12)
[2021-02-09] MEDS: ATORVASTATIN 20 MG TAB GT SCH (10:04)
[2021-02-09] MEDS: levETIRAcetam 100 MG/ML ORASYR GT SCH ×2 (10:04→21:13)
--- NOTE | 2021-02-09 10:04 | NUR ---
ALL SCHEDULED MEDICATIONS ADMINISTERED. PATIENT TOLERATED WELL. WILL CONTINUE TO MONITOR.
[2021-02-09] MEDS: MEROPENEM 1,000 MG in NACL 0.9% 100 ML IV SCH ×2 (10:27→21:13)
[2021-02-09] MEDS ORDERED: VANCOMYCIN 750 MG in DEXTROSE 5% 250 ML IV SCH (10:30)
[2021-02-09] MEDS: LACOSAMIDE 10 MG/ML PO SCH ×2 (10:31→21:00)
[2021-02-09] MEDS ORDERED: POTASSIUM CHLORIDE 10 MEQ TABER PO SCH (11:10)
[2021-02-09] MEDS: METOPROLOL 25 MG TAB PEG SCH ×2 (11:51→21:12)
[2021-02-09 12:00] VITALS: BP 133/96
[2021-02-09] MEDS: THERAHONEY GEL 42.5 GM TP SCH (13:00)
[2021-02-09] MEDS: GAUZE TP SCH (13:00)
[2021-02-09] MEDS: SODIUM FERRIC GLUCONATE 125 MG in NACL 0.9% 100 ML IV SCH (15:26)
--- NOTE | 2021-02-09 15:42 | NUR ---
PATIENT LAB RESULTS POSITIVE FOR KLEBSIELLA PNEUMONIAE ESBL.
--- NOTE | 2021-02-09 15:44 | NUR ---
SPOKE WITH DR KAUR. HE IS AWARE OF PATIENT'S LAB RESULTS.
[2021-02-09 16:00] VITALS: BP 117/91
--- NOTE | 2021-02-09 17:04 | NUR ---
DID ROUNDS ON PATIENT. CHANGED PATIENT. CHANGED TUBE FEEDING. PATIENT TOLERATED WELL. WILL CONTINUE TO MONITOR.
--- NOTE | 2021-02-09 19:35 | NUR ---
RECEIVED BEDSIDE REPORT FROM DAYSHIFT RN FOR CONTINUITY OF CARE.PT IS STABLE. WILL CONTINUE TO MONITOR.
[2021-02-09 20:00] VITALS: BP 141/93
--- NOTE | 2021-02-09 21:30 | NUR ---
DUE MEDS GIVEN.GTUBE CHECKED.PT HAS RESIDUAL OF 120ML, TUBE FEEDING STOPPED. PT IS STABLE. WILL CONTINUE TO MONITOR.
[2021-02-09] MEDS ORDERED: HYDRAGUARD CREAM TP PRN (21:45)
[2021-02-09] MEDS ORDERED: HYDRAGUARD CREAM TP ONE (21:46)
[2021-02-10] VITALS (7 sets, daily range): BP systolic 110–151; BP diastolic 82–101
--- NOTE | 2021-02-10 | NUR ---
PT'S CONDOM CATHETER OUT.DC'D.BRIAN CARE PROVIDED.REPOSITION FOR COMFORT.BED IN LOW AND LOCK POSITION. CALL LIGHT WITHIN REACH.WILL CONTINUE TO MONITOR.
--- NOTE | 2021-02-10 02:00 | NUR ---
PT ASLEEP. VISIBLE CHEST RISE AND FALL NOTED. WILL CONTINUE TO MONITOR
--- NOTE | 2021-02-10 05:30 | NUR ---
HELD MIDODRINE.PT'S SBP @ 130'S. WILL CONTINUE TO MONITOR.
[2021-02-10] MEDS: MIDODRINE 5 MG TAB NG SCH ×2 (05:34)
[2021-02-10] MEDS: HYDROcodone/APAP 5/325 MG 1 TAB TAB PO PRN (05:39)
[2021-02-10 06:29] LABS: ALBUMIN 1.8 g/dL (3.4-5.0); ANION GAP 12.1 (8-16); CREATININE 1.4 mg/dL (0.6-1.3); MAGNESIUM 1.9 mg/dL (1.8-2.4); PHOSPHORUS 2.6 mg/dL (2.5-4.9); POTASSIUM 3.1 mmol/L (3.5-5.1); TOTAL BILIRUBIN 0.2 mg/dL (0.0-1.0)
[2021-02-10 06:36] LABS: BASOPHILS % (AUTO) 0.1 % (0.0-2.0); EOSINOPHILS % (AUTO) 0.1 % (0.0-4.0); HEMATOCRIT 30.4 % (36-52); HEMOGLOBIN 9.2 g/dL (12.0-18.0); LYMPHOCYTES # (AUTO) 1.4 K/uL (2.0-11.5); LYMPHOCYTES % (AUTO) 11.8 % (20.5-51.1); MEAN CORPUSCULAR HEMOGLOBIN 22 pg (27-31); MEAN CORPUSCULAR HGB CONC 30 g/dL (33-37); MEAN CORPUSCULAR VOLUME 72.8 fL (80-94); MONOCYTES # (AUTO) 0.6 K/uL (0.8-1.0); MONOCYTES % (AUTO) 5.1 % (1.7-9.3); NEUTROPHILS # (AUTO) 9.7 K/uL (1.8-7.7); NEUTROPHILS % (AUTO) 82.9 % (42.2-75.2); PLATELET COUNT (AUTO) 404 K/uL (140-450); RED BLOOD CELL COUNT(AUTO) 4.17 MIL/uL (4.20-6.10); RED CELL DISTRIBUTION WIDTH 21.9 % (11.6-13.7); WHITE BLOOD COUNT (AUTO) 11.7 K/uL (4.8-10.8)
--- NOTE | 2021-02-10 06:57 | NUR ---
PT STABLE.NOT IN ANY DISTRESS AT THIS TIME.NO ACUTE EVENTS THROUGHOUT THE NIGHT.ALL NEEDS ATTENDED. NO COMPLAIN FROM THE PT.CALL LIGHT WITHIN REACH. WILL ENDORSE TO ONCOMING RN FOR CONTINUITY OF CARE.
--- NOTE | 2021-02-10 07:37 | NUR ---
ENDORSED PT TO AM SHIFT NURSE FOR CONTINUITY OF CARE. PT IS STABLE.
[2021-02-10] MEDS: DEXTROSE 5% 1,000 ML IV SCH ×2 (07:40→20:38)
[2021-02-10] MEDS ORDERED: POTASSIUM CHLORIDE 10 MEQ TABER PO SCH (07:41)
[2021-02-10] MEDS ORDERED: MAG SULF 2000 MG/WATER PREMIX 50 ML IV SCH (08:00)
[2021-02-10] MEDS ORDERED: POTASSIUM CHLORIDE 20% 40 MEQ/15 ML UDC GT SCH (08:26)
[2021-02-10] MEDS: levETIRAcetam 100 MG/ML ORASYR GT SCH ×2 (08:29→20:34)
[2021-02-10] MEDS: ASCORBIC ACID 500 MG TAB PO SCH ×2 (08:31→20:39)
[2021-02-10] MEDS: FAMOTIDINE 20 MG TAB GT SCH (08:32)
[2021-02-10] MEDS: FLUCONAZOLE 100 MG TAB GT SCH (08:33)
[2021-02-10] MEDS: METOPROLOL 25 MG TAB PEG SCH ×2 (08:33→20:39)
[2021-02-10] MEDS: ATORVASTATIN 20 MG TAB GT SCH (08:34)
[2021-02-10] MEDS: MEROPENEM 1,000 MG in NACL 0.9% 100 ML IV SCH ×2 (08:35→20:39)
--- NOTE | 2021-02-10 08:45 | NUR ---
ADMINISTERED SCHEDULED MEDICATIONS. 50 ML OF RESIDUAL NOTED. PATIENT SIGNALED UNDERSTANDING. ALL SAFETY PRECAUTIONS IN PLACE.
[2021-02-10] MEDS: LACOSAMIDE 10 MG/ML PO SCH ×2 (10:36→21:19)
[2021-02-10] MEDS ORDERED: VANCOMYCIN 1,000 MG in DEXTROSE 5% 250 ML IV SCH (11:00)
--- NOTE | 2021-02-10 12:30 | NUR ---
SECOND IV STARTED FOR PATIENT. NEW IV IS A 22G AT THE LEFT HAND. IV IS DRY, PATENT, INTACT, AND FLUSHING WELL.
--- NOTE | 2021-02-10 12:50 | NUR ---
CLEANED PATIENT AND CHANGED LINENS. NO BM NOTED. PATIENT TOLERATED ACTIVITY WELL. ALL SAFETY PRECAUTIONS IN PLACE.
--- NOTE | 2021-02-10 13:20 | NUR ---
DR MERRILL AT BEDSIDE TO REMOVE CHEST TUBE. CHEST TUBE WAS SUCCESSFULLY REMOVED. ALL SAFETY PRECAUTIONS REMAIN IN PLACE.
[2021-02-10] MEDS: THERAHONEY GEL 42.5 GM TP SCH (13:29)
[2021-02-10] MEDS: GAUZE TP SCH (13:29)
[2021-02-10] MEDS: SODIUM FERRIC GLUCONATE 125 MG in NACL 0.9% 100 ML IV SCH (14:24)
--- NOTE | 2021-02-10 15:45 | NUR ---
PATIENT IS RESTING. NO S/S OF DISTRESS. RESPIRATIONS EVEN AND UNLABORED. ALL SAFETY PRECAUTIONS IN PLACE.
--- NOTE | 2021-02-10 15:53 | NUR ---
02/10/21 RD FOLLOW UP COMPLETED PLEASE REFER TO NUTRITION ASSESSMENT UNDER CARE ACTIVITY FOR ESTIMATED NUTRITIONAL NEEDS. 1. CONTINUE VITAL AF 1.2 @ 60 ML/HR; START AT 10 ML/HR ADVANCE BY 10 ML Q6H -THIS WILL PROVIDE 1728 KCAL/DAY AND 108 GM OF PROTEIN/DAY 2. RECOMMEND DU BID TO PROMOTE WOUND HEALING 3. CONTINUE FREE WATER FLUSH OF 250 ML Q6H OR PER MD 4. RD TO FOLLOW-UP 2-3 DAYS, HIGH RISK ALYCE PLUMMER RD
--- NOTE | 2021-02-10 17:30 | NUR ---
PATIENT IS RESTING IN BED. NO S/S OF DISTRESS. RESPIRATIONS EVEN AND UNLABORED. ALL SAFETY PRECAUTIONS IN PLACE.
--- NOTE | 2021-02-10 19:00 | NUR ---
PATIENT RECEIVED IN BED AWAKE, ALERT X 1 UNABLE TO SPEAK. HAS TRACH TO VENT RATE 16, TV 450 FI02 30 %, PEEP 5. SAT 96%. LUNGS DIMINISH TO BILATERAL LOWER LOBES. MONITOR CONTINUED WITH SINUS TACH 100 HEART RATE. HAS LEFT HAND SALINE LOCK, RIGHT WRIST 22 [place] PATENT AND INTACT. STAGE 3 ULCER NOTED TO MID LOWER BACK NOTED. G-TUBE JEVITY 1.2 RATE 60 HOUR, 300CC H20 FLUSH Q 6 HOURS. PATIENT IN ISOLATION FOR MRSA OF NARES. PATIENT CHEST TUBE DISCONTINUED PAST AM. NO PNEUMOTHORAX NOTED ANOTHER CHEST X-RAY IN A.M. THEN WILL TAKE CHEST TUBE OUT IF NO PNEUMOTHORAX STILL. PATIENT HAS CONDOM CATH DRAINING WELL. MAXIMAL CARE RENDERED. INCONTINENT OF BOWEL AND BLADDER. ABDOMINAL INCISION COVERED WITH DRY DRESSING. MAXIMAL CARE RENDERED. 2 PERSON ASSISTANCE WITH TRANSFERS AND REPOSITIONING. PATIENT SUCTIONED AND CHANGE TRACH DRSG PER RESPIRATORY THERAPIST. MAXIMAL CARE RENDERED. NO ACUTE DISTRESS NOTED. VSS.
--- NOTE | 2021-02-10 19:30 | NUR ---
ENDORSED PATIENT TO WORM RAISER RN FOR CONTINUITY OF CARE. PATIENT IS STABLE.
[2021-02-11 04:00] VITALS: BP 138/84
[2021-02-11 06:46] LABS: ANION GAP 14.2 (8-16); CARBON DIOXIDE 26.7 mmol/L (21-32); CREATININE 1.2 mg/dL (0.6-1.3)
[2021-02-11 06:54] LABS: BASOPHILS % (AUTO) 0.2 % (0.0-2.0); EOSINOPHILS # (AUTO) 0.1 K/uL (0-0.4); EOSINOPHILS % (AUTO) 0.5 % (0.0-4.0); HEMATOCRIT 27.5 % (36-52); HEMOGLOBIN 8.4 g/dL (12.0-18.0); LYMPHOCYTES # (AUTO) 1.1 K/uL (2.0-11.5); LYMPHOCYTES % (AUTO) 8.8 % (20.5-51.1); MEAN CORPUSCULAR HEMOGLOBIN 22 pg (27-31); MEAN CORPUSCULAR HGB CONC 31 g/dL (33-37); MEAN CORPUSCULAR VOLUME 72.4 fL (80-94); MONOCYTES # (AUTO) 0.7 K/uL (0.8-1.0); MONOCYTES % (AUTO) 5.3 % (1.7-9.3); NEUTROPHILS # (AUTO) 10.7 K/uL (1.8-7.7); NEUTROPHILS % (AUTO) 85.2 % (42.2-75.2); PLATELET COUNT (AUTO) 345 K/uL (140-450); RED BLOOD CELL COUNT(AUTO) 3.79 MIL/uL (4.20-6.10); WHITE BLOOD COUNT (AUTO) 12.6 K/uL (4.8-10.8)
[2021-02-11 07:02] LABS: MAGNESIUM 2.1 mg/dL (1.8-2.4); PHOSPHORUS 1.9 mg/dL (2.5-4.9)
--- NOTE | 2021-02-11 07:10 | NUR ---
RECEIVED REPORT FROM TIMBER GRADER NURSE FOR CONTINUITY OF CARE. PATIENT IS IN BED SLEEPING. RESPIRATIONS ARE EVEN AND UNLABORED. PATIENT IS VENT TO TRACH. NO SIGNS OF DISTRESS NOTED. WILL CONTINUE TO MONITOR. ALL SAFETY MEASURES IN PLACE. CALL LIGHT WITHIN REACH.
[2021-02-11 08:00] VITALS: BP 140/87
[2021-02-11] MEDS: levETIRAcetam 100 MG/ML ORASYR GT SCH ×3 (09:00→20:46)
[2021-02-11 09:07] LABS: POTASSIUM 2.9 mmol/L (3.5-5.1)
--- NOTE | 2021-02-11 09:30 | NUR ---
NOTIFIED DR RAFFAELE GLEZ OF PATIENT'S POTASSIUM 2.9. IS AWARE.
[2021-02-11] MEDS: FAMOTIDINE 20 MG TAB GT SCH (09:53)
[2021-02-11] MEDS: ASCORBIC ACID 500 MG TAB PO SCH ×2 (09:53→20:46)
[2021-02-11] MEDS: METOPROLOL 25 MG TAB PEG SCH ×2 (09:54→20:46)
[2021-02-11] MEDS: ATORVASTATIN 20 MG TAB GT SCH (09:56)
[2021-02-11] MEDS: FLUCONAZOLE 100 MG TAB GT SCH (10:01)
[2021-02-11] MEDS: LACOSAMIDE 10 MG/ML PO SCH (10:01)
[2021-02-11] MEDS: MEROPENEM 1,000 MG in NACL 0.9% 100 ML IV SCH ×2 (10:02→20:46)
[2021-02-11] MEDS ORDERED: KCL 20 MEQ/WATER INJ PREMIX 100 ML IV ONE (10:10)
[2021-02-11] MEDS ORDERED: POTASSIUM PHOSPHATE 15 MM in NACL 0.9% 250 ML IV ONE (10:10)
[2021-02-11] MEDS: DEXTROSE 5% 1,000 ML IV SCH (10:20)
[2021-02-11] MEDS ORDERED: ONDANSETRON 4 MG/2 ML VIAL IVP PRN (10:45)
--- NOTE | 2021-02-11 10:45 | NUR ---
ADMINISTERED SCHEDULED MEDICATIONS. NO RESIDUAL NOTED. PATIENT VOMITED YELLOW, THICK SECRETIONS AROUND TRACH AND THROUGH THE MOUTH. DR GLEZ AND DR WOOD AWARE. DR WOOD ORDERED PRN ZOFRAN FOR N/V. TUBE FEEDING ALSO STOPPED AT THIS TIME. ALL SAFETY PRECAUTIONS IN PLACE. WILL CONTINUE TO MONITOR.
--- NOTE | 2021-02-11 10:47 | NUR ---
HELD MEDICATIONS KEPPRA AND LACOSAMIDE DUE TO EPISODE OF EMESIS.
[2021-02-11 12:00] VITALS: BP 98/55
[2021-02-11] MEDS: THERAHONEY GEL 42.5 GM TP SCH (13:55)
[2021-02-11] MEDS: GAUZE TP SCH (13:55)
[2021-02-11] MEDS ORDERED: METOPROLOL 5 MG/5 ML VIAL IV SCH (14:30)
--- NOTE | 2021-02-11 14:40 | NUR ---
PATIENT'S BP IS 105/53 AND HEART RATE FLUCTUATING BETWEEN 140-150. NOTIFIED DR GRAHAM OF PATIENT'S STATUS. DR GRAHAM ORDERED LOPRESSOR 2.5 IVP NOW. WILL ADMINISTER MEDICATION AND CONTINUE TO MONITOR.
--- NOTE | 2021-02-11 15:19 | NUR ---
DR GLEZ AT BEDSIDE TO ASSESS PATIENT. INFORMED DR GLEZ THAT 2.5 OF LOPRESSOR WAS GIVEN BUT HR IS STILL 170, BP IS 113/77. DR GLEZ ORDERED 0.5 DIGOXIN. WILL ADMINISTER MEDICATION AND CONTINUE TO MONITOR PATIENT.
[2021-02-11] MEDS ORDERED: DIGOXIN 0.25 MG/ML AMP IV ONE (15:20)
[2021-02-11 16:00] VITALS: BP 92/72
[2021-02-11] MEDS ORDERED: LACOSAMIDE 10 MG/ML PO SCH (16:26)
--- NOTE | 2021-02-11 16:45 | NUR ---
PATIENT REVERTED BACK TO SINUS RHYTHM. HEART RATE IS NOW STABLE BETWEEN 105-112. WILL CONTINUE TO MONITOR.
--- NOTE | 2021-02-11 19:25 | NUR ---
ENDORSED PATIENT TO GROUNDS MAINTENANCE MANAGER NURSE FOR CONTINUITY OF CARE. PATIENT IS STABLE.
[2021-02-11 20:00] VITALS: BP 100/68
[2021-02-11] MEDS: POTASSIUM CHLORIDE 20% 40 MEQ/15 ML UDC GT SCH (20:46)
[2021-02-12] VITALS: BP 100/64
[2021-02-12] MEDS ORDERED: POTASSIUM CHLORIDE 20% 40 MEQ/15 ML UDC ONE (03:45)
[2021-02-12] MEDS: POTASSIUM CHLORIDE 20% 40 MEQ/15 ML UDC GT SCH (03:49)
[2021-02-12] MEDS: DEXTROSE 5% 1,000 ML IV SCH ×3 (03:50→19:18)
[2021-02-12 04:00] VITALS: BP 128/72
[2021-02-12 06:09] LABS: BASOPHILS % (AUTO) 0.2 % (0.0-2.0); EOSINOPHILS # (AUTO) 0.1 K/uL (0-0.4); EOSINOPHILS % (AUTO) 0.8 % (0.0-4.0); HEMATOCRIT 26.7 % (36-52); HEMOGLOBIN 8.1 g/dL (12.0-18.0); LYMPHOCYTES # (AUTO) 1.4 K/uL (2.0-11.5); MEAN CORPUSCULAR HEMOGLOBIN 22 pg (27-31); MEAN CORPUSCULAR HGB CONC 30 g/dL (33-37); MEAN CORPUSCULAR VOLUME 72.6 fL (80-94); MONOCYTES # (AUTO) 0.7 K/uL (0.8-1.0); MONOCYTES % (AUTO) 5.8 % (1.7-9.3); NEUTROPHILS # (AUTO) 9.3 K/uL (1.8-7.7); PLATELET COUNT (AUTO) 340 K/uL (140-450); RED BLOOD CELL COUNT(AUTO) 3.68 MIL/uL (4.20-6.10); RED CELL DISTRIBUTION WIDTH 22.4 % (11.6-13.7); WHITE BLOOD COUNT (AUTO) 11.5 K/uL (4.8-10.8)
[2021-02-12 06:28] LABS: MAGNESIUM 1.8 mg/dL (1.8-2.4); PHOSPHORUS 2.8 mg/dL (2.5-4.9)
[2021-02-12 06:30] LABS: ANION GAP 10.8 (8-16); POTASSIUM 3.8 mmol/L (3.5-5.1)
[2021-02-12 07:09] LABS: NEUTROPHILS % (AUTO) 81.2 % (42.2-75.2)
--- NOTE | 2021-02-12 07:52 | NUR ---
RECEIVED PT EYES CLOSE, TRACH TO VENT , O2 SAT 99,GT WITH RESIDUAL OF 200ML, WILL HOLD FEEDING FOR NOW, HEAD OF BED UP,SKIN WARM TO TOUCH RESP. EVEN AND UNLABORED, ON WOUND BED, ORAL HYGIENE GIVEN, MAGNESIUM 1.8 WILL CALL MARISA STEPHENSON SETTING RATE 16, TV 450, PEEP 5 FI02 28 Addendum: 02/12/21 at 1618 by Marlyn Brewer RN NOTER RIGHT ARM SLIGHTLY SWOLLEN NOTED WITH NEEDLE WILLIAM FROM PREVIOUS IV, NOTED ALSO BLACK SCAB ON RIGHT FOREARM, NOTED ALSO SCAR ON LEFT HIP WITH BLANCHABLE REDNESS 0.5X0.5CM , NOTED ALSO BLACK SCAB ON RIGHT ON LOWER LEG
[2021-02-12 08:00] VITALS: BP 119/89
[2021-02-12] MEDS: FLUCONAZOLE 100 MG TAB GT SCH (09:19)
[2021-02-12] MEDS: levETIRAcetam 100 MG/ML ORASYR GT SCH ×2 (09:19→21:04)
[2021-02-12] MEDS: ATORVASTATIN 20 MG TAB GT SCH (09:20)
[2021-02-12] MEDS: FAMOTIDINE 20 MG TAB GT SCH (09:21)
[2021-02-12] MEDS: MEROPENEM 1,000 MG in NACL 0.9% 100 ML IV SCH ×2 (09:21→21:04)
[2021-02-12] MEDS: SPIRONOLACTONE 25 MG TAB PO SCH (09:25)
[2021-02-12] MEDS: METOPROLOL 25 MG TAB PEG SCH ×2 (09:25→20:57)
[2021-02-12] MEDS: ASCORBIC ACID 500 MG TAB PO SCH ×2 (09:26→21:04)
--- NOTE | 2021-02-12 09:40 | NUR ---
DR GLEZ AT BEDSIDE, AWARE OF THE RESIDUAL 70ML AT THIS TIME, AWARE OF MAG LEVEL 1.8 AND I ALSO ASKED IF WE NEED TO RENEW VANCO
[2021-02-12] MEDS ORDERED: VANCOMYCIN PER PHARMACY MC PRN (09:50)
[2021-02-12] MEDS: VANCOMYCIN 1,000 MG in DEXTROSE 5% 250 ML IV SCH (10:52)
--- NOTE | 2021-02-12 11:16 | NUR ---
REPOSITIONED PT , BED BATH GIVEN , PATIENT AWAKE,GT FEEDING RE STARTED AGAIN AT THIS TIME, 60ML , HEAD OF BED UP
[2021-02-12] MEDS: THERAHONEY GEL 42.5 GM TP SCH (11:30)
[2021-02-12] MEDS: GAUZE TP SCH (11:30)
[2021-02-12 12:00] VITALS: BP 113/90
--- NOTE | 2021-02-12 16:05 | NUR ---
DR. GLEZ HERE, MADE AWARE PT HAS EPISODE OF DIARRHEA YELLOWISH IN COLOR MODERATE IN AMOUNT, WITH ORDER TO COLLECT FOR CDIFF
[2021-02-12] MEDS: ACETAMINOPHEN 325 MG TAB PO PRN (16:49)
--- NOTE | 2021-02-12 17:03 | NUR ---
CALL PLACE TO DR KAUR, MADE AWARE PT HAS EPISODES OF FEVER AND DIARRHEA,DR KAUR WITH ORDER Addendum: 02/12/21 at 1719 by Marlyn Brewer RN DR KAUR SAID MAY DO IN AND OUT CATH
--- NOTE | 2021-02-12 17:10 | NUR ---
SPONGE BATH GIVEN AGAIN, ICE PACKS UNDER BOTH ARMS
[2021-02-12 17:54] VITALS: BP 121/84
--- NOTE | 2021-02-12 17:55 | NUR ---
PATIENT TEMP AT 1600 101 TEMPORAL, RECHECK 1755 98 TEMPORAL
--- NOTE | 2021-02-12 19:39 | NUR ---
RECEIVED BEDSIDE ENDORSEMENT FROM AM SHIFT RN. PT IS TRACH TO VENT TV: 450 FIO2 24% PEEP 5 RR: 16. PT HAS A LEFT HAND 22G, IVF: D5 75ML/HR. G-TUBE FEEDING - JEVITY 1.2, PT UNDERSTANDS COMMANDS BUT APHASIC, SAFETY MEASURES IN PLACE, NO GARCIA CATHETER, WEARING DIAPER. CONTACT PRECAUTIONS. PT STABLE. WILL CONTINUE TO MONITOR.
[2021-02-12 20:00] VITALS: BP 94/75
[2021-02-12] MEDS: LACOSAMIDE 10 MG/ML PO SCH (21:00)
--- NOTE | 2021-02-12 21:29 | NUR ---
CHECKED RESIDUAL. RESIDUAL 200MLS. HELD FEEDING. WILL CHECK RESIDUAL IN AN HOUR.
--- NOTE | 2021-02-12 22:35 | NUR ---
CHECKED RESIDUAL AFTER ONE HOUR. NO RESIDUAL. WILL RESUME FEEDINGS
[2021-02-13] VITALS: BP 105/79
--- NOTE | 2021-02-13 01:17 | NUR ---
PT IS ASLEEP, NO SIGNS OF DISTRESS, WILL CONTINUE TO MONITOR. PT STABLE.
--- NOTE | 2021-02-13 03:33 | NUR ---
PATIENT IS ASLEEP. TOLERATING FEEDING. SAFETY MEASURES IN PLACE. PT IS STABLE. WILL CONTINUE TO MONITOR.
[2021-02-13 04:00] VITALS: BP 118/87
[2021-02-13] MEDS ORDERED: PIPERACILLIN/TAZOBACTAM 3.375 GM VIAL IV ONE (04:43)
--- NOTE | 2021-02-13 06:05 | NUR ---
COLLECTED STOOL FOR C-DIFF. CHANGED PT SOILED DIAPER. CHANGED GOWN WELL. SUCTIONED PATIENT. REPOSITIONED. PT STABLE. WILL CONTINUE TO MONITOR.
[2021-02-13 06:28] LABS: BASOPHILS % (AUTO) 0.4 % (0.0-2.0); EOSINOPHILS # (AUTO) 0.1 K/uL (0-0.4); EOSINOPHILS % (AUTO) 1.4 % (0.0-4.0); HEMOGLOBIN 8.6 g/dL (12.0-18.0); LYMPHOCYTES # (AUTO) 1.2 K/uL (2.0-11.5); LYMPHOCYTES % (AUTO) 15.9 % (20.5-51.1); MEAN CORPUSCULAR HEMOGLOBIN 22 pg (27-31); MEAN CORPUSCULAR HGB CONC 31 g/dL (33-37); MEAN CORPUSCULAR VOLUME 72.4 fL (80-94); MONOCYTES # (AUTO) 0.6 K/uL (0.8-1.0); MONOCYTES % (AUTO) 7.4 % (1.7-9.3); NEUTROPHILS # (AUTO) 5.7 K/uL (1.8-7.7); NEUTROPHILS % (AUTO) 74.9 % (42.2-75.2); PLATELET COUNT (AUTO) 302 K/uL (140-450); RED BLOOD CELL COUNT(AUTO) 3.86 MIL/uL (4.20-6.10); RED CELL DISTRIBUTION WIDTH 22.4 % (11.6-13.7); WHITE BLOOD COUNT (AUTO) 7.6 K/uL (4.8-10.8)
[2021-02-13 07:36] LABS: ALBUMIN 1.8 g/dL (3.4-5.0); ANION GAP 13.8 (8-16); CARBON DIOXIDE 25.6 mmol/L (21-32); CREATININE 0.9 mg/dL (0.6-1.3); MAGNESIUM 1.7 mg/dL (1.8-2.4); PHOSPHORUS 3.1 mg/dL (2.5-4.9); POTASSIUM 3.4 mmol/L (3.5-5.1); TOTAL BILIRUBIN 0.2 mg/dL (0.0-1.0)
--- NOTE | 2021-02-13 07:40 | NUR ---
PASSED ON BEDSIDE REPORT TO AM SHIFT RN. PT IS STABLE.
[2021-02-13 08:00] VITALS: BP 132/87
[2021-02-13] MEDS: LACOSAMIDE 10 MG/ML PO SCH (09:00)
[2021-02-13] MEDS ORDERED: MERO1VIA15 IV (09:27)
[2021-02-13] MEDS ORDERED: FLUC100T1 GT (09:27)
[2021-02-13] MEDS ORDERED: POTASSIUM CHLORIDE 20% 40 MEQ/15 ML UDC GT SCH (09:27)
[2021-02-13] MEDS ORDERED: VANC1PLA7 IV (09:27)
[2021-02-13] MEDS ORDERED: MAG SULF 2000 MG/WATER PREMIX 50 ML IV SCH (10:00)
[2021-02-13] MEDS ORDERED: ATORVASTATIN 20 MG TAB ONE (10:48)
[2021-02-13] MEDS: VANCOMYCIN 1,000 MG in DEXTROSE 5% 250 ML IV SCH ×2 (11:00→13:22)
[2021-02-13] MEDS: FAMOTIDINE 20 MG TAB GT SCH (11:07)
[2021-02-13] MEDS: FLUCONAZOLE 100 MG TAB GT SCH (11:07)
[2021-02-13] MEDS: levETIRAcetam 100 MG/ML ORASYR GT SCH (11:07)
[2021-02-13] MEDS: ATORVASTATIN 20 MG TAB GT SCH (11:07)
[2021-02-13] MEDS: METOPROLOL 25 MG TAB PEG SCH (11:08)
[2021-02-13] MEDS: SPIRONOLACTONE 25 MG TAB PO SCH (11:08)
[2021-02-13] MEDS: ASCORBIC ACID 500 MG TAB PO SCH (11:08)
[2021-02-13 12:00] VITALS: BP 132/87
[2021-02-13] MEDS: GAUZE TP SCH (13:00)
[2021-02-13] MEDS: MEROPENEM 1,000 MG in NACL 0.9% 100 ML IV SCH (13:22)
[2021-02-13] MEDS: THERAHONEY GEL 42.5 GM TP SCH (14:30)
--- NOTE | 2021-02-13 14:50 | NUR ---
0730AM: PATIENT IS RESTING IN BED QUIETLY. NO ADDITIONAL DISTRESS NOTED. CALL LIGHT WITHIN REACH. BED ALARM ON. BED IN LOW AND LOCK POSITION. CURRENTLY ON TRACH/VENT 02 SAT 91%. PATIENT JUST HAD HIS PERICARE DUE TO LOOSE STOOLS POSSIBLE CDIFF. NPO BUT HAS PEG TUBE IN PLACE. CURRENTLY ON FORMULA FEEDING. HOB 45 DEGREE. TOLERATED WELL. PER NOC RN REPORT PATIENT HAS A LEFT FOOT 20G IV. NO IV FOUND. ONLY TO THE L HAND 22G INTACT AND PATENT. STABLE CONDITION AT THIS TIME. WILL CONT TO MONITOR. 0800 AM: EXPLAINED PLAN OF CARE. HOWEVER, PATIENT IS NONVERBAL AND UNABLE TO MAKE NEEDS KNOWN. PATIENT NODDED HIS HEAD WHEN TALKING TO HIM. BUT CANNOT DETERMINE WHETHER HE UNDERSTOOD WHAT IS BEING SAID. PATIENT IS AWAKE AND FOLLOW GAZE. NO ADDITIONAL DISTRESS NOTED. WILL CONT TO MONITOR. 1000AM: ASLEEP AT THIS TIME. 02 SAT 98% ON VENT. STABLE CONDITION. 1100 AM: L ARM IV INFILTRATED. IV CATH INTACT WHEN REMOVED. NO BLEEDING NOTED. COVER SITE WITH GAUZE AND SECURE WITH TAPE. NEW IV INSERTED TO THE RFA 24 G WITH GOOD BLOOD RETURN. SECURE WITH TEGADERM AND TAPE. PATIENT IS A HARD STICK. 1200PM: PATIENT IS RESTING IN BED, ASLEEP BUT EASILY AROUSABLE WHEN AWAKEN OR CALL BY HIS NAME. 02 SAT 99%. NO ADDITIONAL DISTRESS NOTED. WILL CONT TO MONITOR. 1300: G[facility] SB[phone] GOING TO ROOM 110A. ETA FOR CNA IS AT 1430 TODAY. 1430: TRANSPORT ARRIVED. CLEANSE SACRAL WOUND WITH NS, PADDED DRY WITH STERILE GAUZE, APPLIED THERAHONEY, AND COVER WITH FOAM DRESSING. LLQ OLD GT SITE CLEANSE WITH SALINE, PADDED DRY WITH STERILE GAUZE AND COVER WITH DRY DRESSING. HEALING WELL. PERICARE PERFORMED. IV LEFT TO THE RFA. REHAB WILL CONT THE IV ABT. 1450: PATIENT LEFT THE UNIT IN A STABLE CONDITION. NO ADDITIONAL DISTRESS NOTED. ALL PERSONAL BELONGING GIVEN TO PATIENT. DC PACKET WAS GIVEN TO THE TRANSPORT PERSONEL.
[2021-02-13] MEDS ORDERED: APIXABAN 2.5 MG TAB PO SCH (21:00)
== END 2021-02-13 14:45 | DRG 720 ==
LOC: MED 13:04 → MTU 21:21 → MIC 02-02 18:39 → MTU 02-03 18:25 → MIC 02-06 20:05 → MTU 02-07 23:30
PROVIDERS: ADMIT Internal Medicine Cardiovascular Disease; ATTEND Internal Medicine Cardiovascular Disease
PROC: 5A1955Z Respiratory Ventilation, Greater than 96 Consecutive Hours (ICD-10-PCS; principal; 2021-01-30)
PROC: 0W9B30Z Drainage of Left Pleural Cavity with Drainage Device, Percutaneous Approach (ICD-10-PCS; 2021-02-02)
PROC: 0DH63UZ Insertion of Feeding Device into Stomach, Percutaneous Approach (ICD-10-PCS; 2021-02-06)
DX: A41.9 Sepsis, unspecified organism (principal); J96.21 Acute and chronic respiratory failure with hypoxia; E43 Unspecified severe protein-calorie malnutrition; J44.0 Chronic obstructive pulmonary disease with (acute) lower respiratory infection; J15.0 Pneumonia due to Klebsiella pneumoniae; L89.94 Pressure ulcer of unspecified site, stage 4; J15.1 Pneumonia due to Pseudomonas; N17.9 Acute kidney failure, unspecified; E87.0 Hyperosmolality and hypernatremia; I48.20 Chronic atrial fibrillation, unspecified; K94.23 Gastrostomy malfunction; E78.5 Hyperlipidemia, unspecified; E87.6 Hypokalemia; B37.49 Other urogenital candidiasis; D50.9 Iron deficiency anemia, unspecified; K94.22 Gastrostomy infection; E83.39 Other disorders of phosphorus metabolism; E83.42 Hypomagnesemia; G40.909 Epilepsy, unspecified, not intractable, without status epilepticus; I12.9 Hypertensive chronic kidney disease with stage 1 through stage 4 chronic kidney disease, or unspecified chronic kidney disease; I25.10 Atherosclerotic heart disease of native coronary artery without angina pectoris; J93.9 Pneumothorax, unspecified; L03.311 Cellulitis of abdominal wall; N18.9 Chronic kidney disease, unspecified; N20.0 Calculus of kidney; N21.0 Calculus in bladder; R13.10 Dysphagia, unspecified; Y95 Nosocomial condition; Z16.19 Resistance to other specified beta lactam antibiotics; I48.0 Paroxysmal atrial fibrillation; Z60.2 Problems related to living alone; Z20.822 Contact with and (suspected) exposure to COVID-19; Z79.01 Long term (current) use of anticoagulants; Z85.89 Personal history of malignant neoplasm of other organs and systems; Z86.73 Personal history of transient ischemic attack (TIA), and cerebral infarction without residual deficits; Z95.1 Presence of aortocoronary bypass graft; Z99.11 Dependence on respirator [ventilator] status; Z79.82 Long term (current) use of aspirin; Z79.899 Other long term (current) drug therapy; Z68.21 Body mass index [BMI] 21.0-21.9, adult
CPT/HCPCS: 36415; 71045; 76705; 80048; 80053; 80202; 81001; 82533; 82728; 83540; 83605; 83735; 83880; 84100; 84443; 84484; 85025; 85610; 85651; 85730; 86140; 86886; 86900; 86901; 86920; 87040; 87070; 87081; 87086; 87205; 89220; 93005; 94002; 94003; 96365; 99285; J0692; J1160; J1200; J1644; J2001; J2185; J2250; J2405; J2543; J2916; J3010; J3370; J3475; J3480; J3490; J7030; J7060; Q0092